=== PATIENT | female | born 1975 | race Caucasian/White ===

== ENCOUNTER → 2020-09-21 10:28 | Outpatient (CLI) | payer BC, SELFPAY ==
--- NOTE | ~2020-09-21 | MM_ITS ---
EXAMINATION: MM screening [facility] BI w shruthi HISTORY: Screening mammogram TECHNIQUE: Craniocaudal and mediolateral oblique 3-D tomosynthesis images were obtained and synthetic 2-D images were generated. CAD analysis was submitted and interpreted. COMPARISON: 05/10/2019, 05/07/2018, 04/25/2017 BREAST PARENCHYMAL COMPOSITION: The breasts are almost entirely fatty. FINDINGS: There is no evidence of suspicious mass, calcification, or architectural distortion to sugg est malignancy in either breast. There has been no suspicious interval change. IMPRESSION: 1. No mammographic evidence of malignancy. 2. Recommend routine screening mammography in one year. BI-RADS Category 1: Negative Reviewed, dictated and finalized at location A.
== END ==
PROVIDERS: PCP Family Medicine; Visit Provider Obstetrics & Gynecology
DX: Z12.31 Encounter for screening mammogram for malignant neoplasm of breast (principal)
CPT/HCPCS: 77063; 77067

== ENCOUNTER 2025-01-31 02:06 | Day surgery (SDC) | payer BC, SELFPAY ==
[2025-01-22 10:56] VITALS: BMI 43.3
--- NOTE | 2025-01-22 11:09 | PC.NURSE ---
Report to the Outpatient Waiting Room, entrance under the green pavilion located off [facility], at time _1000_ on date _[id number]_. Planned Procedure Time: _1200_.? Time changes happen often and if your time is changed the preop area will call you the afternoon before. - You and your visitor will be asked to self-screen and do not enter if you have any COVID symptoms. Please call surgeon if you need to reschedule. - A mask is optional within the hospital at this time. Patients may have clear liquids (water, carbonated beverages, clear teas, apple juice) until 3 hours prior to surgery with a maximum of 20 ounces. - No food from midnight until time of surgery and no smoking, or chewing tobacco (or any form of nicotine). No chewing gum, candy or mints. Take only the following medications with a SIP of water on the morning of surgery: ___Bupropion, Carvidilol and Azelastine____ DO NOT STOP ANY OF YOUR OTHER PRESCRIPTION MEDICATIONS PRIOR TO SURGERY EXCEPT THE FOLLOWING Hold all vitamins and supplements for 3 days per anesthesiologist. Medications to discontinue per physician ____Aspirin hold 7 days starting [id number]___Hxlfomiy hold now until after surgery.__ Date to take last dose Please no make-up, nail japanese, hairspray, perfume, deodorant, or body powder the day of surgery.? No jewelry (including any body piercings) or valuables the day of surgery, leave them at home.? Please take a shower or bath the night before, or the morning of, surgery with an antibacterial soap.? Wear comfortable, loose fitting clothing.? - Jewelry must be removed prior to entering the operating room.? Rings and piercings that are not removed may be cut off. - The hospital will not accept responsibility for valuables.? - Please leave all valuables, including medications, at home the day of surgery. If you are going home after surgery, a licensed hazardous materials tanker driver must drive you home.? - NO public transportation without another adult if you receive anesthesia. - We recommend that an adult stay with you for 24 hours following discharge. - We also recommend that you do not drive, make important decision, drink alcoholic beverages, or take any drugs that were not prescribed by your health care provider for at least 24 hours after your discharge time. Follow any additional instructions given to you from your surgeon. Telephone instructions given to __Damaris__and asked if any additional questions and then verbalized understanding. Patient advised to call surgeon office or pre surgery nurse liaison [phone] if any additional questions.
--- NOTE | 2025-01-26 18:03 | PM.IMHP ---
H&P: HPI History of Present Illness Date/Time: 01/26/25 18:03 Chief Complaint: mixed incontinence Narrative: desires treatment for ENRIQUE Review of Systems Review of Systems: All systems reviewed & are unremarkable except as noted in HPI and below PMFSH Family History Family History Mother Hypertension Social History Social History Smoking status: Never smoker Alcohol intake: current Living arrangements: with family Spiritual care concerns: No Meds Home Medications and Allergies Home Medications ?Medication ?Instructions ?Recorded ?Confirmed ?Type bupropion HCl 150 mg 24 hr tablet, 150 mg PO DAILY #30 tabs 07/28/20 01/22/25 Rx extended release aspirin 81 mg tablet,delayed 81 mg PO HS 01/22/25 01/22/25 History release (Adult Low Dose Aspirin) azelastine 137 mcg-fluticasone 50 1 spray intranasal DAILY PRN 01/22/25 01/22/25 History mcg/spray nasal spray allergy symptoms biotin 2,500 mcg capsule 2,500 mcg PO DAILY 01/22/25 01/22/25 History carvedilol 25 mg tablet 25 mg PO BID 01/22/25 01/22/25 History cholecalciferol (vitamin D3) 125 125 mcg PO DAILY 01/22/25 01/22/25 History mcg (5,000 unit) tablet (Vitamin D3) inulin 2 gram chewable tablet 2 g PO QPM 01/22/25 01/22/25 History (Fiber Delights) levocetirizine 5 mg tablet (24HR 5 mg PO DAILY 01/22/25 01/22/25 History Allergy Relief) miconazole nitrate 2 % topical 1 applic topical BID PRN itching 01/22/25 01/22/25 History cream multivitamin with minerals-folic 2 tablet PO HS 01/22/25 01/22/25 History acid 200 mcg chewable tablet (Adult Multivitamin Gummies) nystatin 100,000 unit/gram topical 1 applic topical TID PRN itching 01/22/25 01/22/25 History powder (Klayesta) omega 3 350 mg-dha 235 mg-epa 90 1 cap PO DAILY 01/22/25 01/22/25 History mg-fish oil 597 mg capsule,delay rel (Mcdavid-3) oxybutynin chloride 10 mg 10 mg PO DAILY 01/22/25 01/22/25 History tablet,extended release 24 hr ramipril 5 mg capsule 5 mg PO HS 01/22/25 01/22/25 History rosuvastatin 10 mg tablet 10 mg PO HS 01/22/25 01/22/25 History tirzepatide (weight loss) 2.5 2.5 mg subcut WEEKLY 01/22/25 01/22/25 History mg/0.5 mL subcutaneous pen injector (Zepbound) vortioxetine 10 mg tablet 10 mg PO DAILY 01/22/25 01/22/25 History (Trintellix) Allergies Allergy/AdvReac Type Severity Reaction Status Date / Time No Known Allergies Allergy Unverified 01/22/25 10:46 Exam Narrative: + urethral mobility Assessment and Plan Assessment and plan (1) ENRIQUE (stress urinary incontinence, female): Code(s): N39.3 - Stress incontinence (female) (male) Status: Acute Assessment and Plan: urethral sling
--- OUTSIDE RECORDS SUMMARY | 2025-01-31 02:09 | XMS_ITS | Encounter Summary ---
Author Organization [facility] Address [facility] [place] [address] Care Team Providers Care Welcome Wagon Host/Hostess Name Role Phone Margie Newton MD Primary Care Provider [phone] Encounter Details Date Type Department Care Team (Late st Contact Info) Description 04/25/2024 [employer]t Message Enc [facility] Family Medicine [facility] [address] [place] [phone] Margie Newton MD [address] [place] [id number] Compression socks Social History Tobacco Use Types Packs/Day Years Used Date Smoking Tobacco: Never Passive Smoke Exposure: Never Smokeless Tobacco: Never Alcohol Use Standard Drinks/Week Comments No 0 (1 standard drink = 0.6 oz pur e alcohol) AUDIT-C Answer Date Recorded Frequency of Alcohol Consumption Never 12/16/2019 Average Number of Drinks Not on file 020 Frequency of Binge Drinking Not on file 11/28 PHQ-2 Answer Date Recorded Patient Health Questionnaire-2 Score 1 01/29/2024 Comments No Sex and Gender Information Value Date Recorded Sex Assigned at Female 12/13/2024 4:26 PM CARPENTER ROUGH Legal Sex Female 8:27 PM CDT Gender Identity Female 12/15/2021 5:23 AM CARPENTER ROUGH Sexual Orientation Straight 12/15/2021 5: 23 AM CARPENTER ROUGH documented as of this encounter Plan of Treatment Upcoming Encounters Date Type Department Care Team (Late st Contact Info) Description 04/03/2025 12:30 PM CDT Office Visit [facility] [address] [place] [address] Deisi Haji MD [facility] [address] [place] [address] 05/16/2025 3:40 PM CDT Office Visit [facility] Family Medicine [facility] [address] [place] [phone] Margie Newton MD [address] [place] [address] documented as of this encounter Visit Diagnoses Not on filedocumented in this encounter Additional Health Concerns Assessment Noted Time PHQ-9 Depression Total Score: 13 023 8:13 AM CDT documented as of this encounter Care Teams Welcome Wagon Host/Hostess Relationship Specialty Start Date End Date Margie Newton MD [address] [place] [address] PCP - General FAMILY PRACTICE 05/27/22 documented as of this encounter
--- OUTSIDE RECORDS SUMMARY | 2025-01-31 02:09 | XMS_ITS | Referral Summary ---
Author Organization [address] Address [address] [place] [phone] Care Team Providers Care Studio Receptionist Name Role Phone Yael Brothers NP Unavailable Margie Newton MD Primary Care Provider Encounters Date Type Department Care Team Description 01/14/2025 Results Follow-Up [facility] Obstetrical Gynecology [address] [facility] [address] [place] [address] Agata Galvez MD 01/11/2025 9:00 AM AIRPLANE CHARTER CLERK - 01/11/2025 11:59 PM AIRPLANE CHARTER CLERK Hospital Encounter [facility] Breast Imaging [address] [place] [address] Well woman exam Discharge Disposition: Discharge to home or self care from Last 3 Months Allergies No known active allergies Medications multivitamin tablet tablet Take one by mouth one time per day 0 0 11/10/ 9 Active biotin 2,500 mcg capsule Take by mouth daily Active cholecalciferol , vitamin D3, (VITAMIN D3 ORAL) Take 5,000 Units by mouth daily Active aspirin 81 mg enteric coated tablet Take 1 tablet (81 mg total) by mouth daily Active EPINEPHrine 0.3 mg/0.3 mL auto-injection syringeIndicati ons:Anaphylaxis Inject 0.3 mL (0.3 mg total) into the muscle as instructed Active carvediloL (COREG) 25 mg tablet Take 1 tablet (25 mg total) by mouth 2 (two) times a day with meals 60 tablet 11 2 Active sertraline (ZOLOFT) 100 mg tablet Take 1 tablet (100 mg total) by mouth daily 2 Active rosuvastatin (CRESTOR) 10 mg tablet Take 1 tablet (10 mg total) by mouth nightly 2 Active nystatin powder APPY TO FOLDS 3 TIMES A DAY 2 Active levocetirizine (XYZAL) 5 mg tablet 1 Active buPROPion XL (WELLBUTRIN XL) 150 mg 24 hr tablet Take 1 tablet (150 mg total) by mouth every morning 3 Active meclizine (ANTIVERT) 25 mg tablet Take by mouth 3 (three) times a day as needed 3 Active liinn-2-anl-epa -dpa-fish oil 1,050-1,200 mg capsule Active oxyBUTYnin XL (DITROPAN-XL) 10 mg 24 hr tablet Take 1 tablet (10 mg total) by mouth daily 3 Active ramipriL (ALTACE) 5 mg capsule Take by mouth daily 3 Active valACYclovir (VALTREX) 500 mg tablet 3 Active azelastine-flut icasone 137-50 mcg/spray spray,non-aeros ol SPRAY 1 SPRAY INTRANASALLY TWICE A DAY FOR 30 DAYS Active fexofenadine (FRANCINE) 180 mg tablet daily Active ketoconazole (NIZORAL) 2 % cream Apply topically 3 (three) times a day Active Trintellix 10 mg tablet Take 1 tablet (10 mg total) by mouth daily Active vortioxetine (Trintellix) 5 mg tablet daily 4 Active miconazole 2 % cream Apply topically 2 (two) times a day 42.5 g 2 4 Active Active Problems Problem Noted Date Diagnosed Date Cervical radiculopathy 10/27/2023 Hypersomnia 03/21/2023 Assessment & Plan (04/04/2024 11:55 AM CDT): The patient denies falling asleep at inappropriate times. Assessment & Plan (03/21/2023 12:02 PM CDT): The patient denies the want for stimulant therapy due to heart condition. I have ordered a vitamin-D, vitamin B12, and thyroid level. Chronic pansinusitis 02/01/2023 Assessment & Plan (03/16/2023 11:10 AM CDT): She feels like the antibiotic and steroid regimen I prescribed did help. She still has a little bit of stuffiness but it is improved a great deal. I recommended that she continue with her allergy medication including the allergy shots. We talked about using a steroid nasal spray and I felt that it might be helpfull in addition. She really did not want to pursue anything further and therefore I will see her as needed. Assessment & Plan (02/05/2023 6:02 PM CDT): I recommended a another course of antibiotics with a steroid for her sinusitis symptoms. Prescribing Augmentin for 14 days and a Medrol Dosepak. I would like to see her back in about 6 weeks. If she continues with symptoms I may be recommending a sinus CT scan. She understands that. Nasal obstruction 02/01/2023 Assessment & Plan (02/05/2023 6:03 PM CDT): I think her nasal obstruction is probably due to combination of allergies and sinusitis. I recommended that she continue with her current allergy meds including nasal spray. Also recommended she stay with her immunotherapy. 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 Her DME is [employer]. Assessment & Plan (03/21/2023 12:01 PM CDT): Patient continue to wear CPAP in auto titrating range 8-10 cm water pressure while sleeping. Her DME is [employer]. Assessment & Plan (03/02/2022 2:37 PM CDT): The patient will continue with auto titrating CPAP set at 8-10 cm water pressure. Patient denied need for supplies. DME company provider [employer]. Patient is benefitting from CPAP Assessment & Plan (03/08/2021 10:36 AM CDT): Patient continue to wear her CPAP in auto titrating range 8-10 cm of water pressure while sleeping. She is currently getting her supplies online but would like him sent to a [employer] company. Patient states that she has finally found a mask that she likes. She is going to call to [facility] to see if they supply the mask that she currently has. She will call us back to let us know if she would like orders for supplies sent to them. Cardiomyopathy 12/17/2016 Anxiety 07/15/2016 Dyspnea on exertion 07/15/2016 Hemorrhoids 07/15/2016 History of depression 07/15/2016 Migraine 07/15/2016 Pneumonia 07/15/2016 Asthma 07/15/2016 Gastroesophageal reflux disease 07/15/2016 Primary cardiomyopathy 04/12/2014 Overview (03/03/2017): IDIOPATHIC CARDIOMYOPATHY Palpitations 04/12/2014 Overview (03/03/2017): PALPITATIONS Ventricular premature beats 04/12/2014 Overview (03/03/2017): PVCs Premature atrial contraction 04/12/2014 Overview (03/03/2017): ATRIAL PREMATURE BEATS Resolved Problems Problem Noted Date Diagnosed Date Resolved Date Status post hysteroscopic polypectomy 11/12/2020 09/26/2023 Uterine polyp 11/12/2020 09/26/2023 Allergy to cats 12/16/2019 09/26/2023 Immunizations Immunization Administration Dates Next Due Influenza, Quadrivalent, Masha l Culture-based MDCK, Antibiotic Free, Intramuscular 09/20/2020 Influenza, Quadrivalent, Spl it, Preservative Free, Intramuscular 09/23/2022,08/04/2021,07/18/2020,07/24,07/29/2018,08/28/2017,10/23/2016 Influenza, Trivalent, IM (MDV) 08/30/2015 Influenza, Trivalent, Preser vative Free, Intramuscular 08/30/2015 Influenza, Unspecified 09/23/2022,2020,09/20/2020,07/24,07/29/2018,08/28/2017,10/23/2016 ,08/30/2015 Pfizer SARS-CoV-2 Monovalent Vaccination (12+ Yrs) PURPLE 02/08/2021,01/18/2021 Pneumococcal Polysaccharide PPV23 08/28/2017 Social History Tobacco Use Types Packs/Day Years Used Date Smoking Tobacco: Never Smokeless Tobacco: Never Tobacco Cessation:Counseling Given: Not Answered Alcohol Use Standard Drinks/Week Comments No 0 (1 standard drink = 0.6 oz pur e alcohol) Comments No Sex and Gender Information Value Date Recorded Sex Assigned at Not on file Legal Sex Female 12:52 AM AIRPLANE CHARTER CLERK Gender Identity Not on file Sexual Orientation Straight 12/10/2020 1: 02 PM AIRPLANE CHARTER CLERK Last Filed Vital Signs Vital Sign Reading Time Taken Comments Blood Pressure 120/82 09/27/2024 9:07 AM CDT Pulse 63 04/04/2024 11:37 AM CDT Temperature 36.7 C (98 F) 04/04/2024 11:37 AM CDT Respiratory Rate 18 04/04/2024 11:37 AM CDT Oxygen Saturation 94% 04/04/2024 11:37 AM CDT Inhaled Oxygen Concentration - - Weight 114.3 kg (252 lb) 01/11/2025 9:19 AM AIRPLANE CHARTER CLERK Height 162.6 cm (5' 4 ) 01/11/2025 9:19 AM AIRPLANE CHARTER CLERK Body Mass Index 43.26 01/11/2025 9:19 AM AIRPLANE CHARTER CLERK Plan of Treatment Not on file Procedures Procedure Name Priority Date/Time Associated Diagnosis Comments SCREENING MAMMOGRAM BILATERAL W JEAN-CLAUDE Schedule Routine, Read Routine (OP Routine) 01/11/2025 9:26 AM AIRPLANE CHARTER CLERK Well woman exam HIGH RISK HPV DNA DETECTION WITH GENOTYPING Routine 09/26/2023 2:26 PM CDT Well woman exam from Last 3 Months or Most Recently Relevant to Health Maintenance Results * Screening Mammogram Bilateral W Jean-Claude (01/11/2025 9:26 AM AIRPLANE CHARTER CLERK) Anatomical Region Laterality Modality Breast Bilateral Mammography Impressions 01/13/2025 8:41 AM AIRPLANE CHARTER CLERK BI-RADS ATLAS category (overall): 1 - Negative There is no mammographic evidence of malignancy. A 1 year screening mammogram is recommended. The patient has been or will be contacted. We recommend annual screening mammography for women at average risk of breast cancer beginning at age 40, based on guidelines of the [employer] (ACR Practice Parameter for the Performance of Screening and Diagnostic Mammography) and [employer]. For women with and elevated risk of breast cancer, please refer to the ACR Practice Parameter for specific screening recommendations. The patient will be entered into a reminder system with a target due date of 1 year for her next screening exam. Narrative 01/13/2025 8:41 AM AIRPLANE CHARTER CLERK Screening Mammogram Bilateral W Jean-Claude: 01/11/25 The study was acquired using full field digital technology and interpreted from soft copy. 2D digital mammographic views, as well as 3D digital tomosynthesis were performed in the CC and MLO projections. This study was resulted using Computer-Aided Detection (CAD). CLINICAL: Well woman exam. No relevant medical history has been documented for this patient. History of breast cancer in Neg Hx. COMPARISONS: 12/16/2023 Screening Mammogram Bilateral W Jean-Claude 11/23/2022 SCREENING MAMMOGRAM BILATERAL W JEAN-CLAUDE 09/21/2020 Breast Imaging Screening Outside Reference 05/10/2019 Breast Imaging Screening Outside Reference 05/07/2018 Breast Imaging Screening Outside Reference BREAST TISSUE: The breasts are almost entirely fatty. FINDINGS: No suspicious masses, suspicious calcifications, or other suspicious findings are seen within either breast. There has been no suspicious change. Agata Galvez MD IMG MAMMO PROCEDURES Final Result * High Risk HPV DNA Detection with Genotyping (Molecular component) (09/26/2023 2:26 PM CDT) HPV HR 16 Not Detected Not Detected NISHANT OAKLEY Comment:Testing performed by : [facility], [address] [place]., [address] HPV HR 18 Not Detected Not Detected NISHANT OAKLEY Comment:Testing performed by : [facility], [address] [place]., [address] HPV HR Non 16/18 Not Detected Not Detected NISHANT OAKLEY Comment: Interpretive Data Nucleic acid amplification for detection of high-risk Human Papilloma virus (HPV) is performed by the Krea Rick 6800 HPV test. This assay specifically detects HPV-16 and HPV-18 genotypes. The following HPV genotypes are detected as high-risk HPV: HPV-31, 33, 35, ,39, 45, 51, 52, 56, 58, 59, 66, and 68. This assay has been approved by the [place] Food and Drug Administration for detection of HPV in cervical specimens collected by a physician using an endocervical brush/spatula or cervical broom and placed in the ThinPrep Pap Test PreservCyt collection containers. The performance characteristics of this test have been verified by the [facility] Molecular Infectious Disease laboratory. Correlate with separately reported cytology results, as applicable. Interpretive data last revised 23 Testing performed by: [facility], [address] [place]., [address] Endocervical 09/26/2023 2:26 PM CDT 09/29/2023 2:59 PM CDT Narrative NISHANT OAKLEY - 09/30/2023 2:22 AM CDT Clinical history and diagnosis->routine Number of vials->1 Testing type->Screening Last menstrual period (date if known)->08/03/2023 Agata Galvez MD LAB BODY FLUIDS AND STOOLS ORDERABLES Final Result NISHANT OAKLEY [address] [facility] Department [place] [address] from Last 3 Months or Most Recently Relevant to Health Maintenance Insurance [employer] [place] [employer] [place] [employer] [place] Care Teams Studio Receptionist Relationship Specialty Start Date End Date Margie Newton MD [address] [place] [place] [address] PCP - General Family Practice 11/23/22 Yael Brothers NP Obstetrics and Gynecology 11/23/22
--- OUTSIDE RECORDS SUMMARY | 2025-01-31 02:09 | XMS_ITS | Encounter Summary ---
Author Organization [facility] Address [facility] [place] [address] Care Team Providers Care Float Operator Name Role Phone Saad Soria MD Primary Care Provider [phone] Margie Newton MD Primary Care Provider Encounter Details Date Type Department Care Team (Late st Contact Info) Description 12/26/2019 MyChart Message Enc [facility] Family Medicine [facility] [address] [place] [phone] Saad Soria MD [address] [address] RE: Other Social History Tobacco Use Types Packs/Day Years Used Date Smoking Tobacco: Never Smokeless Tobacco: Never Alcohol Use Standard Drinks/Week Comments No 0 (1 standard drink = 0.6 oz pur e alcohol) AUDIT-C Answer Date Recorded Frequency of Alcohol Consumption Never 12/16/2019 Average Number of Drinks Not on file 020 Frequency of Binge Drinking Not on file 11/28 Comments No Sex and Gender Information Value Date Recorded Sex Assigned at Female 12/13/2024 4:26 PM SANITATION OFFICER Legal Sex Female 8:27 PM CDT Gender Identity Female 12/15/2021 5:23 AM SANITATION OFFICER Sexual Orientation Straight 12/15/2021 5: 23 AM SANITATION OFFICER documented as of this encounter Plan of Treatment Upcoming Encounters Date Type Department Care Team (Late st Contact Info) Description 04/03/2025 12:30 PM CDT Office Visit [facility] [address] [place] [address] Deisi Haji MD [facility] [address] [place] [address] 05/16/2025 3:40 PM CDT Office Visit [facility] Family Medicine [facility] [address] [place] [phone] Margie Newton MD [address] [place] [address] documented as of this encounter Visit Diagnoses Not on filedocumented in this encounter Care Teams Float Operator Relationship Specialty Start Date End Date Saad Soria MD PCP - General FAMILY PRACTICE 12/03/19 05/26/22 Margie Newton MD [facility] [place] [address] PCP - General FAMILY PRACTICE 05/27/22 documented as of this encounter
--- OUTSIDE RECORDS SUMMARY | 2025-01-31 02:09 | XMS_ITS | Clinical Summary ---
Author Organization [address] Address [address] [place] [id number] Care Team Providers Care Web Merchandiser Name Role Phone Yael Brothers NP Unavailable Margie Newton MD Primary Care Provider Allergies No known active allergies Medications multivitamin tablet tablet Take one by mouth one time per day 0 0 9 Active biotin 2,500 mcg capsule Take [...] times a day as needed 3 Active lixnh-3-yef-epa -dpa-fish oil 1,050-1,200 mg capsule Active oxyBUTYnin [...] but would like him sent to a [facility]. Patient states that she has finally found a mask that she likes. She is going to call to [facility] to see if they supply the mask [...] 11/12/2020 09/26/2023 Allergy to cats 12/16/2019 09/26/2023 Encounters Date Type Department Care Team Description 01/14/2025 Results Follow-Up [facility] Obstetrical Gynecology [address] [place] [address] Agata Galvez MD 01/11/2025 9:00 AM SPEEDBOAT OPERATOR - 01/11/2025 11:59 PM SPEEDBOAT OPERATOR Hospital Encounter [facility] [address] [place] [address] Well woman exam Discharge Disposition: Discharge to home or self care from Last 3 Months Immunizations Immunization Administration Dates Next Due Influenza, Quadrivalent, Masha l Culture-based MDCK, Antibiotic Free, Intramuscular 09/20/2020 Influenza, Quadrivalent, Spl it, Preservative Free, Intramuscular 09/23/2022,08/04/2021,07/18/2020,07/24,07/29/2018,08/28/2017,10/23/2016 Influenza, Trivalent, IM (MDV) 08/30/2015 Influenza, Trivalent, Preser vative Free, Intramuscular 08/30/2015 Influenza, Unspecified 09/23/2022,2020,09/20/2020,07/24,07/29/2018,08/28/2017,10/23/2016 ,08/30/2015 Pfizer SARS-CoV-2 Monovalent Vaccination (12+ Yrs) PURPLE 02/08/2021,01/18/2021 Pneumococcal Polysaccharide PPV23 08/28/2017 Surgical History Surgery Date Site/Laterality Comments OTHER SURGICAL HISTORY 1977 VSD repair TONSILLECTOMY tonsillectomy LASIK Lasik INTERRUPTED AORTIC ARCH REPA IR, CLOSURE VENTRICULAR SEPTAL DEFECT Ventricular Septal Defect Repair - (Added by TW Conv) SINUS SURGERY Sinus Surgery - (Added by TW Conv) LASIK Corneal LASIK - (Added by TW Conv) DC TONSILLECTOMY PRIMARY/SEC ONDARY <AGE 12 Tonsillectomy - (Added by TW Conv) BARIATRIC SURGERY gastric sleeve HYSTEROSCOPY W/ POLYPECTOMY Medical History Medical History Date Comments Hx Other Medical 2008 mildly elevated cholesterol Hx Other Medical hairline fractu re of little finger Hx Other Medical poss ankle frac ture Hyperlipidemia hyperlipidemia Hx Other Medical palpitations occ PAC & PVC Hx Other Medical anxiety/depress ion Pneumonia 1976 pneumonia Pneumonia 1991 pneumonia Allergic rhinitis Anxiety Cardiomyopathy (HCC) Depression Loss of smell Migraine Heart disease Cardiomyopathy Sleep apnea Kidney stone Jul 2021 PMB (postmenopausal bleeding) Family History Medical History Relation Name Comments Cancer Father Omkar Family history of malignant neoplasm - (Added by TW Conv) Heart attack Maternal Grandfather Chemo Myocard ial Infarction; Heart attack Maternal Grandmother Keila Myocard ial Infarction; Asthma Mother Marlyne Family history of asthma - (Added by TW Conv) Depression Mother Marlyne Family history of depression - (Added by TW Conv) Diabetes Mother Marlyne Family history of diabetes mellitus - (Added by TW Conv) Hyperlipidemia Mother Marlyne Family histor y of hyperlipidemia - (Added by TW Conv) Hypertension Mother Marlyne Family history of hypertension - (Added by TW Conv) Obesity Mother Marlyne Family history of obesity - (Added by TW Conv) Sleep apnea Mother Marlyne Family history of sleep apnea - (Added by TW Conv) Hypertension Other 2 Hypertension; u nspecified family members with HTN Breast cancer Neg Hx Colon cancer Neg Hx Ovarian cancer Neg Hx Uterine cancer Neg Hx Relation Name Status Comments Father Omkar Alive Maternal Grandfather Chemo Alive Maternal Grandmother Keila Alive Mother Tyler Alive Other 1 Alive Other 2 Social History Tobacco Use Types Packs/Day Years Used Date Smoking Tobacco: Never Smokeless Tobacco: Never Tobacco Cessation:Counseling Given: Not Answered Alcohol Use Standard Drinks/Week Comments No 0 (1 standard drink = 0.6 oz pur e alcohol) Comments No Sex and Gender Information Value Date Recorded Sex Assigned at Not on file Legal Sex Female 12:52 AM SPEEDBOAT OPERATOR Gender Identity Not on file Sexual Orientation Straight 12/10/2020 1: 02 PM SPEEDBOAT OPERATOR Obstetrics History Para Term AB IAB SAB Ectopic Multiple Livin g Live Births 0 0 0 0 0 0 0 0 0 0 0 Comments Menarche:14 Last Filed Vital Signs Vital Sign Reading Time Taken Comments Blood Pressure 120/82 09/27/2024 9:07 AM CDT Pulse 63 04/04/2024 11:37 AM CDT Temperature 36.7 C (98 F) 04/04/2024 11:37 AM CDT Respiratory Rate 18 04/04/2024 11:37 AM CDT Oxygen Saturation 94% 04/04/2024 11:37 AM CDT Inhaled Oxygen Concentration - - Weight 114.3 kg (252 lb) 01/11/2025 9:19 AM SPEEDBOAT OPERATOR Height 162.6 cm (5' 4 ) 01/11/2025 9:19 AM SPEEDBOAT OPERATOR Body Mass Index 43.26 01/11/2025 9:19 AM SPEEDBOAT OPERATOR Plan of Treatment Health Maintenance Due Date Last Done Comments Colon Cancer Screening-Colonoscopy 1975 Depression Screening 1975 Hepatitis C Screening 1975 Hepatitis B Screening 02/12/1994 Pneumococcal vaccine <65 (2 of 2 - PCV) 08/28/2018 08/28/2017 Covid-19 Vaccine (6 2023-2 5 season) 2024 09/18/2023, 09/23/2022, 08/31/2021, Additional history exists Cervical Cancer Screening 09/26/20242022, 09/26/2023, 08/17/2022 Regular Well Visit/Exam 18-64 09/27/2025, 09/26/2023, 08/17/2022 Breast Cancer Screening-Mammogram 01/11/2026 01/11/2025, 12/16/2023, 11/23/2022 DTaP/Tdap/Td Vaccine (2 - Td or Tdap) 10/11/2034 10/11/2024 Influenza Vaccine Completed 09/03/2024, , 09/23/2022, Additional history exists Procedures Procedure Name Priority Date/Time Associated Diagnosis Comments SCREENING MAMMOGRAM BILATERAL W JEAN-CLAUDE Schedule Routine, Read Routine (OP Routine) 01/11/2025 9:26 AM SPEEDBOAT OPERATOR Well woman exam HIGH RISK HPV DNA DETECTION WITH GENOTYPING Routine 09/26/2023 2:26 PM CDT Well woman exam from Last 3 Months or Most Recently Relevant to Health Maintenance Results * Screening Mammogram Bilateral W Jean-Claude (01/11/2025 9:26 AM SPEEDBOAT OPERATOR) Anatomical Region Laterality Modality Breast Bilateral Mammography Impressions 01/13/2025 8:41 AM SPEEDBOAT OPERATOR BI-RADS ATLAS category (overall): 1 - Negative There is no mammographic evidence of malignancy. A 1 year screening mammogram is recommended. The patient has been or will be contacted. We recommend annual screening mammography for women at average risk of breast cancer beginning at age 40, based on guidelines of the [employer] (ACR Practice Parameter for the Performance of Screening and Diagnostic Mammography) and [employer]. For women with and elevated risk of breast cancer, please refer to the ACR Practice Parameter for specific screening recommendations. The patient will be entered into a reminder system with a target due date of 1 year for her next screening exam. Narrative 01/13/2025 8:41 AM SPEEDBOAT OPERATOR Screening Mammogram Bilateral W Jean-Claude: 01/11/25 The [...] breast. There has been no suspicious change. us Agata Galvez MD IMG MAMMO PROCEDURES Final Result * High Risk HPV DNA Detection with Genotyping (Molecular component) (09/26/2023 2:26 PM CDT) HPV HR 16 Not Detected Not Detected NISHANT Comment:Testing performed by : [facility], [address] [place]., [address] HPV HR 18 Not Detected Not Detected NISHANT Comment:Testing performed by : [facility], [address] [place]., [address] HPV HR Non 16/18 Not Detected Not Detected NISHANT Comment: Interpretive Data Nucleic acid amplification for detection of high-risk Human Papilloma virus (HPV) is performed by the Kera Rick 6800 HPV test. This assay specifically [...] this test have been verified by the [facility] Molecular Infectious Disease laboratory. Correlate with separately reported cytology results, as applicable. Interpretive data last revised 23 Testing performed by: [facility] [address] [facility], [place]., [address] Endocervical 09/26/2023 2:26 PM CDT 09/29/2023 2:59 PM CDT James OAKLEY - 09/30/2023 2:22 AM CDT Clinical history and diagnosis->routine Number of vials->1 Testing type->Screening Last menstrual period (date if known)->08/03/2023 Agata Galvez MD LAB BODY FLUIDS AND STOOLS ORDERABLES Final Result NISHANT [address] [facility] Department [place] [address] from Last 3 Months or Most Recently Relevant to Health Maintenance Insurance Real Intent DE Real Intent DE [facility] Care Teams Web Merchandiser Relationship Specialty Start Date End Date Margie Newton MD [address] [facility] [place] [address] PCP - General Family Practice 11/23/22 Yael Brothers NP Obstetrics and Gynecology 11/23/22
--- OUTSIDE RECORDS SUMMARY | 2025-01-31 02:09 | XMS_ITS ---
Author Organization [facility] Address [address] [place] [address] Care Team Providers Care Plant Controller Name Role Phone Margie Newton Primary Care Provider Rosanna Johnson Unavailable [phone] Saad Soria Unavailable Unavailable REASON FOR VISIT SCIT - Traditional Schedule Allergy immunotherapy Medications Medication SIG (Take, Route, Frequency, Duration) Notes Start Date End Date Status SIT (TRADITIONAL) variable per schedule SC per schedule for to be determined Active Azelastine-Fluticaso ne 137 MCG-50 MCG/INH 1 SPRAY(S) INTRANASALLY 2 TIMES A DAY for 30 DAYS *Please review and pick correct strength-formula tion from Met[employer]x options. If intended option is not shown, discontinue and re-order from Quick Search* 04/25/2024 Active Famotidine 40 MG 1 tab(s) orally once a day (at bedtime) Not-Taking Levocetirizine Dihydrochloride 5 MG 1 tab(s) orally once a day (in the evening) for 30 day(s) Not-Taking Fexofenadine HCl 180 MG 1 tab(s) orally once a day Not-Taking Vitamin C 500 MG 1 tab(s) chewed once a day for 30 day(s) Not-Taking Xyzal Allergy 24HR *Please revie w and pick correct strength-formula tion from [employer] options. If intended option is not shown, discontinue and re-order from Quick Search* Not-Taking Azelastine HCl 0.15 % 2 spray(s) intranasally 2 times a day for 30 day(s) 06/08/2022 Not-Taking Quinapril HCl 10 MG 1 tab(s) orally once a day for 30 day(s) Not-Taking Rosuvastatin Calcium 10 MG 1 tab(s) orally once a day for 30 day(s) Not-Taking Trintellix 5 MG 1 tab(s) orally once a day for 30 day(s) 04/25/2024 Active Auvi-Q 0.3 MG/0.3ML as directed intramuscularly once for 30 day(s) Active Xyzal Allergy 24HR 5 MG 1 tablet PO daily for 30 01/05/2022 Not-Taking Carvedilol 6.25 MG 1 tab(s) orally 2 times a day for 30 day(s) Active Sertraline HCl 50 MG 1 tab(s) orally onc e a day for 30 day(s) Active buPROPion HCl ER (XL) 150 MG 1 tab(s) orally every 24 hours for 30 day(s) Active Coenzyme Q10 300 MG 1 cap(s) orally once a day Active Fish Oil 1000 MG 1 cap(s) orally once a day for 30 day(s) Active valACYclovir HCl 1 GM 1 tab(s) orally 2 times a day for 5 day(s) Active Vitamin D3 125 MCG (5000 UT) as directed orally once a day for 30 day(s) Active Flonase Allergy Relief 50 MCG/ACT 1 spray(s) in each nostril once a day Active Rosuvastatin Calcium 10 MG 1 tab(s) orally once a day Active Aspirin 81 MG 1 tab(s) chewed once a day for 30 day(s) Active Calcium 500+D 500 MG-400 INTL UNITS 1 TAB(S) CHEWED 2 TIMES A DAY for 30 DAY(S) *Please review and pick correct strength-formula tion from Medispan options. If intended option is not shown, discontinue and re-order from Quick Search* Active Ramipril 5 MG 1 cap(s) orally once a day Active Nystatin 304874 UNIT/GM 1 ibeth applied topically 3 times a day Active Xyzal Allergy 24HR 5 MG 1 tablet PO daily for 30 Active Encounters Encounter Location Date Provider Diagnosis MICHELL Johnson [address] [place] [address] 06/05/2024 Rosanna Burnette Allergic rhinitis du e to pollen J30.1 ; Allergic rhinitis due to animal (cat) (dog) hair and dander J30.81 ; Other allergic rhinitis J30.89 and Other chronic allergic conjunctivitis H10.45 Assessments Encounter Date Diagnosis (ICD Code) Assessment Notes Treatment Notes Treatment Clinical Notes Section Notes 06/05/2024 Allergic rhinitis due to pollen (ICD-10 - J30.1) 06/05/2024 Allergic rhinitis due to animal (cat) (dog) hair and dander (ICD-10 - J30.81) 06/05/2024 Other allergic rhinitis (ICD-10 - J30.89) 06/05/2024 Other chronic allergic conjunctivitis (ICD-10 - H10.45) Plan Of Treatment Medication Medication Name Sig Start Date Stop Date Notes SIT (TRADITIONAL) variable per schedule SC per schedule for to be determined Next Appt Details Follow Up: 1 Week, Reason: Progress Notes * Damaris JACKSONDOB:1975 (49 yo F)Acc No.[id number]:06/05/2024 Aeroallergen SCIT Patient: Hayes RafiJoe CUMMINGSica Provider: Gilberto Burnette MD :1975 A ge:49 Y S ex:Female Date:06/05/2024 Address:[address] [place], [place] [id number] Pcp:Saad Soria Subjective: * Chief Complaints: * S CIT - Traditional Schedule Allergy immunotherapy * HPI: * Introduction: The patient is here for scheduled immunotherapy. Please see the attached specialty form regarding the specifics of the administration of these vaccines. As per our protocol, they must undergo a screening health questionnaire (medication changes, reaction(s) to last immunotherapy dose(s), current health status, ACT (if appropriate), self-injectable epinephrine on patient(?) and peak flow (if appropriate)). Also, the patient must wait in our office for 30 minutes after receiving the vaccine(s). Furthermore, every patient must have an epinephrine pen (self-injectable) with them at the time of administration--and carry if for the following 1.5 hours after they leave our office. The patient must also have taken their antihistamine the day of the injection, preferably 2 hours prior. The consent form for SCIT (subcutaneous immunotherapy) is on file. * Medical History: * Surgical History: * Hospitalization/Major Diagno stic Procedure: * Medications: T akingXyzal Allergy 24HR 5 MG Tablet 1 tablet PO daily SIT (TRADITIONAL) VARIABLE SEE RECORD PER SCHEDULE SC PER SCHEDULE , Notes to Pharmacist: *Please review for potential replacement for e-prescription and drug interaction check*Nystatin 896949 UNIT/GM Powder 1 ibeth applied topically 3 times a day Ramipril 5 MG Capsule 1 cap(s) orally once a day Rosuvastatin Calcium 10 MG Tablet 1 tab(s) orally once a day Flonase Allergy Relief 50 MCG/ACT Suspension 1 spray(s) in each nostril once a day Calcium 500+D 500 MG-400 INTL UNITS TABLET, CHEWABLE 1 TAB(S) CHEWED 2 TIMES A DAY , Notes to Pharmacist: *Please review and pick correct strength-formulation from Metconnex options. If intended option is not shown, discontinue and re-order from Quick Search*Aspirin 81 MG Tablet Chewable 1 tab(s) chewed once a day Fish Oil 1000 MG Capsule 1 cap(s) orally once a day Coenzyme Q10 300 MG Capsule 1 cap(s) orally once a day Vitamin D3 125 MCG (5000 UT) Capsule as directed orally once a day valACYclovir HCl 1 GM Tablet 1 tab(s) orally 2 times a day buPROPion HCl ER (XL) 150 MG Tablet Extended Release 24 Hour 1 tab(s) orally every 24 hours Sertraline HCl 50 MG Tablet 1 tab(s) orally once a day Carvedilol 6.25 MG Tablet 1 tab(s) orally 2 times a day Auvi-Q 0.3 MG/0.3ML Solution Auto-injector as directed intramuscularly once Trintellix 5 MG Tablet 1 tab(s) orally once a day Azelastine-Fluticasone 137 MCG-50 MCG/INH SPRAY 1 SPRAY(S) INTRANASALLY 2 TIMES A DAY , Notes to Pharmacist: *Please review and pick correct strength-formulation from Metconnex options. If intended option is not shown, discontinue and re-order from Quick Search*Taking Xyzal Allergy 24HR 5 MG Tablet 1 tablet PO daily Taking SIT (TRADITIONAL) VARIABLE SEE RECORD PER SCHEDULE SC PER SCHEDULE , Notes to Pharmacist: *Please review for potential replacement for e-prescription and drug interaction check*Taking Nystatin 411591 UNIT/GM Powder 1 ibeth applied topically 3 times a day Taking Ramipril 5 MG Capsule 1 cap(s) orally once a day Taking Rosuvastatin Calcium 10 MG Tablet 1 tab(s) orally once a day Taking Flonase Allergy Relief 50 MCG/ACT Suspension 1 spray(s) in each nostril once a day Taking Calcium 500+D 500 MG-400 INTL UNITS TABLET, CHEWABLE 1 TAB(S) CHEWED 2 TIMES A DAY , Notes to Pharmacist: *Please review and pick correct strength-formulation from [employer] options. If intended option is not shown, discontinue and re-order from Quick Search*Taking Aspirin 81 MG Tablet Chewable 1 tab(s) chewed once a day Taking Fish Oil 1000 MG Capsule 1 cap(s) orally once a day Taking Coenzyme Q10 300 MG Capsule 1 cap(s) orally once a day Taking Vitamin D3 125 MCG (5000 UT) Capsule as directed orally once a day Taking valACYclovir HCl 1 GM Tablet 1 tab(s) orally 2 times a day Taking buPROPion HCl ER (XL) 150 MG Tablet Extended Release 24 Hour 1 tab(s) orally every 24 hours Taking Sertraline HCl 50 MG Tablet 1 tab(s) orally once a day Taking Carvedilol 6.25 MG Tablet 1 tab(s) orally 2 times a day Taking Auvi-Q 0.3 MG/0.3ML Solution Auto-injector as directed intramuscularly once Taking Trintellix 5 MG Tablet 1 tab(s) orally once a day Taking Azelastine-Fluticasone 137 MCG-50 MCG/INH SPRAY 1 SPRAY(S) INTRANASALLY 2 TIMES A DAY , Notes to Pharmacist: *Please review and pick correct strength-formulation from [employer]x options. If intended option is not shown, discontinue and re-order from Quick Search*Not-Taking/PRNXyzal Allergy 24HR 5 MG Tablet 1 tablet PO daily Vitamin C 500 MG Tablet Chewable 1 tab(s) chewed once a day Azelastine HCl 0.15 % Solution 2 spray(s) intranasally 2 times a day Xyzal Allergy 24HR , Notes to Pharmacist: *Please review and pick correct strength-formulation from [employer] options. If intended option is not shown, discontinue and re-order from Quick Search*Rosuvastatin Calcium 10 MG Tablet 1 tab(s) orally once a day Quinapril HCl 10 MG Tablet 1 tab(s) orally once a day Famotidine 40 MG Tablet 1 tab(s) orally once a day (at bedtime) Fexofenadine HCl 180 MG Tablet 1 tab(s) orally once a day Levocetirizine Dihydrochloride 5 MG Tablet 1 tab(s) orally once a day (in the evening) Not-Taking/PRN Xyzal Allergy 24HR 5 MG Tablet 1 tablet PO daily Not-Taking/PRN Vitamin C 500 MG Tablet Chewable 1 tab(s) chewed once a day Not-Taking/PRN Azelastine HCl 0.15 % Solution 2 spray(s) intranasally 2 times a day Not-Taking/PRN Xyzal Allergy 24HR , Notes to Pharmacist: *Please review and pick correct strength-formulation from MEPS [employer]pan options. If intended option is not shown, discontinue and re-order from Quick Search*Not-Taking/PRN Rosuvastatin Calcium 10 MG Tablet 1 tab(s) orally once a day Not-Taking/PRN Quinapril HCl 10 MG Tablet 1 tab(s) orally once a day Not-Taking/PRN Famotidine 40 MG Tablet 1 tab(s) orally once a day (at bedtime) Not-Taking/PRN Fexofenadine HCl 180 MG Tablet 1 tab(s) orally once a day Not-Taking/PRN Levocetirizine Dihydrochloride 5 MG Tablet 1 tab(s) orally once a day (in the evening) Objective: * Vitals: Assessment: * Assessment: 1. A llergic rhinitis due to pollen - J30.1 (Primary) 2 . A llergic rhinitis due to animal (cat) (dog) hair and dander - J30.81 3 . O ther allergic rhinitis - J30.89 4 . O ther chronic allergic conjunctivitis - H10.45 Plan: * Treatment: * Procedure Codes: 9 5117 IMMUNOTHERAPY INJECTIONS * Preventive Medicine: Counseling: E xercise A void heavy lifting on days of allergy immunotherapy. M edication instruction: I njectable epinephrine education and instruction w/ discussion of signs and symptoms of anaphylaxis and reasons to seek urgent or emergent care, Watch for side effects of prescribed medications. E ducation: A ble to return demonstration of self-injectable epinephrine. * Follow Up: 1 Week * Billing Information: * Visit Code: * Procedure Codes: 70900 IMMUNOTHERAPY INJECTIONS. * Sign off status: Completed true * Provider: Gilberto Burnette MD Date: 0 06/05/2024 Generated for Sarbjit saucedo/Chivo/Malissa on: 0 01/31/2025 02:09 AM PRISON OFFICER History and Physical Notes * HPI (History of Present Illness) Category Sub-Category Detail Notes Category Not es *Introduction The patient is here for scheduled immunotherapy. Please see the attached specialty form regarding the specifics of the administration of these vaccines. As per our protocol, they must undergo a screening health questionnaire (medication changes, reaction(s) to last immunotherapy dose(s), current health status, ACT (if appropriate), self-injectable epinephrine on patient(?) and peak flow (if appropriate)). Also, the patient must wait in our office for 30 minutes after receiving the vaccine(s). Furthermore, every patient must have an epinephrine pen (self-injectable) with them at the time of administration--and carry if for the following 1.5 hours after they leave our office. The patient must also have taken their antihistamine the day of the injection, preferably 2 hours prior. The consent form for SCIT (subcutaneous immunotherapy) is on file.
--- OUTSIDE RECORDS SUMMARY | 2025-01-31 02:09 | XMS_ITS | Patient Health Summary ---
Author Organization [facility] Address [address] [facility] [place] [address] Care Team Providers Care Supervisor Wrapping Room Name Role Phone Margie Newton MD Primary Care Provider [phone] Note from [facility],non-owned Affiliates and Associated Physician Practices is amultiple site organization consisting of ambulatory clinics and hospital sitesin [place], [place], [place] and [place]. This disclosure is being madepursuant to the Care Everywhere program and may not contain all information available regarding this patient. Last updated 18.[facility] Social History Tobacco Use Types Packs/Day Years Used Date Smoking Tobacco: Never Assessed Sex and Gender Information Value Date Recorded Sex Assigned at Female 09/14/2021 7:00 PM CDT Gender Identity Female 09/14/2021 7:00 PM CDT Sexual Orientation Straight 09/14/2021 7: 00 PM CDT Procedures * DERMATOPATHOLOGY(Performed 11/30/2020) Results * DERMATOPATHOLOGY (11/30/2020 12:00 AM ORTHOTIC/PROSTHETIC PRACTITIONER) Case Report Dermatopathology Report Case: [id number] Authorizing Provider: Melodie Thomas MD Collected: 11/30/2020 12:00 AM Ordering Location: [facility] DermPath Lab Received: 12/01/2020 06:34 AM Pathologist: Lily Vega MD Specimen: Skin, left upper back 6:18 PM [facility] DERMATOPATHOLOGY LABORATORY Final Diagnosis Specimen A. SKIN, left upper back: EPIDERMOID CYST (L72.0) 6:18 PM [facility] DERMATOPATHOLOGY LABORATORY Clinical History R/O BCC, cyst, irritated. 1 6:18 PM [facility] DERMATOPATHOLOGY LABORATORY Gross Description Specimen A: Received is one formalin filled container labeled with the patient's name and designated left upper back. The specimen consists of a shave (4 pieces) measuring [id number], [id number], [id number], & [id number]. Jar 0+. 1 6:18 PM [facility] DERMATOPATHOLOGY LABORATORY Microscopic Description Specimen A. SKIN, left upper back: Within the dermis, there is a space lined by epithelium that resembles normal epidermis and the infundibular portion of the hair follicle. 1 6:18 PM [facility] DERMATOPATHOLOGY LABORATORY Disclaimer An external and internal positive and negative controls are appropriate for the histochemical, immunohistochemical and immunofluorescence stain(s) in this case (if any), except where stated explicitly. The performance characteristics of the stain(s) cited in this report were developed and its performance characteristic determined by the Dermatopathology Laboratory at [facility], directed by Dr. Aidee Anaya. These tests need not be, and therefore are not, approved by the [place] Food and Drug Administration. The tests are used for clinical purposes. Billing Codes Specimen Charges Stain Charges 12348 1 1 6:18 PM [facility] DERMATOPATHOLOGY LABORATORY Embedded Images 1 6:18 PM [facility] DERMATOPATHOLOGY LABORATORY Pathology/Cytolog y TISSUE SPECIMEN FROM SKIN / Unknown 11/30/2020 12/01/2020 6:34 AM ORTHOTIC/PROSTHETIC PRACTITIONER Melodie Thomas MD LAB - PATHOLOGY/CYT OLOGY ORDERABLES DERMATOPATHOLOGY LABORATORY [facility] - Department of Dermatology [facility] Medicine [address] [place] [address], [address] [phone] Care Teams Supervisor Wrapping Room Relationship Specialty Start Date End Date Margie Newton MD [address] [place] [address] PCP - General Family Medicine 11/23/23
--- OUTSIDE RECORDS SUMMARY | 2025-01-31 02:09 | XMS_ITS | Encounter Summary ---
Author Organization [facility] Address [address] [place] [address] Care Team Providers Care Investigator Internal Affairs Name Role Phone Margie Newton MD Primary Care Provider [phone] Encounter Details Date Type Department Care Team (Late st Contact Info) Description 12/01/2020 Lab Requisition [facility] DermPath Lab [address] [facility] [place] [address] Melodie Thomas MD [address] [facility] [address] [place] [address] Social History Tobacco Use Types Packs/Day Years Used Date Smoking Tobacco: Never Assessed Sex and Gender Information Value Date Recorded Sex Assigned at Female 09/14/2021 7:00 PM CDT Gender Identity Female 09/14/2021 7:00 PM CDT Sexual Orientation Straight 09/14/2021 7: 00 PM CDT documented as of this encounter Plan of Treatment Not on file documented as of this encounter Procedures Procedure Name Priority Date/Time Associated Diagnosis Comments DERMATOPATHOLOGY Routine 11/30/2020 12:0 0 AM PAD EXTRACTION TENDER documented in this encounter Results * DERMATOPATHOLOGY (11/30/2020 12:00 AM PAD EXTRACTION TENDER) Case Report Dermatopathology Report Case: [id number] Authorizing Provider: Melodie Thomas MD Collected: 11/30/2020 12:00 AM Ordering Location: [facility] DermPath Lab Received: 12/01/2020 06:34 AM Pathologist: Lily Vega MD Specimen: Skin, left upper back 6:18 PM PAD EXTRACTION TENDER DERMATOPATHOLOGY LABORATORY Final Diagnosis Specimen A. SKIN, left upper back: EPIDERMOID CYST (L72.0) 1 6:18 PM [facility] DERMATOPATHOLOGY LABORATORY Clinical History R/O BCC, cyst, irritated. 1 6:18 PM [facility] DERMATOPATHOLOGY LABORATORY Gross Description Specimen A: Received is one formalin filled container labeled with the patient's name and designated left upper back. The specimen consists of a shave (4 pieces) measuring [id number], [id number], 7o5f3bw, & [id number]. Jar 0+. 1 6:18 PM [facility] DERMATOPATHOLOGY LABORATORY Microscopic Description Specimen A. SKIN, left upper back: Within the dermis, there is a space lined by epithelium that resembles normal epidermis and the infundibular portion of the hair follicle. 1 6:18 PM [facility] DERMATOPATHOLOGY LABORATORY Disclaimer An external and internal positive and negative controls are appropriate for the histochemical, immunohistochemical and immunofluorescence stain(s) in this case (if any), except where stated explicitly. The performance characteristics of the stain(s) cited in this report were developed and its performance characteristic determined by the Dermatopathology Laboratory at [facility], directed by Dr. Aidee Anaya. These tests need not be, and therefore are not, approved by the [place] Food and Drug Administration. The tests are used for clinical purposes. Billing Codes Specimen Charges Stain Charges 94087 1 1 6:18 PM [facility] DERMATOPATHOLOGY LABORATORY Embedded Images 1 6:18 PM [facility] DERMATOPATHOLOGY LABORATORY Pathology/Cytolog y TISSUE SPECIMEN FROM SKIN / Unknown 11/30/2020 12/01/2020 6:34 AM PAD EXTRACTION TENDER Melodie Thomas MD LAB - PATHOLOGY/CYT OLOGY ORDERABLES DERMATOPATHOLOGY LABORATORY [facility] - Department of Dermatology [facility] Medicine [address] [place] [address], 3rd [place] [address], [facility] [phone] documented in this encounter Visit Diagnoses Not on filedocumented in this encounter Care Teams Investigator Internal Affairs Relationship Specialty Start Date End Date Margie Newton MD [address] [address] PCP - General Family Medicine 11/23/23 documented as of this encounter
--- OUTSIDE RECORDS SUMMARY | 2025-01-31 02:09 | XMS_ITS | Encounter Summary ---
Author Organization [facility] Address [address] [place] [address] Care Team Providers Care Journeyman Welder Name Role Phone Yael Brothers HOOK UP DRIVER Unavailable Margie Newton MD Primary Care Provider Encounter Details Date Type Department Care Team (Late st Contact Info) Description 01/14/2025 Results Follow-Up [facility] Medical Group Obstetrical Gynecology [address] [address] Agata Galvez MD [address] [address] Social History Tobacco Use Types Packs/Day Years Used Date Smoking Tobacco: Never Smokeless Tobacco: Never Alcohol Use Standard Drinks/Week Comments No 0 (1 standard drink = 0.6 oz pur e alcohol) Comments No Sex and Gender Information Value Date Recorded Sex Assigned at Not on file Legal Sex Female 12:52 AM DESIZING MACHINE OPERATOR HEAD END Gender Identity Not on file Sexual Orientation Straight 12/10/2020 1: 02 PM DESIZING MACHINE OPERATOR HEAD END documented as of this encounter Plan of Treatment Not on file documented as of this encounter Visit Diagnoses Not on filedocumented in this encounter Care Teams Journeyman Welder Relationship Specialty Start Date End Date Margie Newton MD [facility] [facility] [place] [address] PCP - General Family Practice 11/23/22 Yael Brothers NP Obstetrics and Gynecology 11/23/22 documented as of this encounter
--- OUTSIDE RECORDS SUMMARY | 2025-01-31 02:09 | XMS_ITS | Encounter Summary ---
Author Organization [facility] Address [facility] [place] [address] Care Team Providers Care Television Presenter Name Role Phone Saad Soria MD Primary Care Provider Margie Newton MD Primary Care Provider [phone] Encounter Details Date Type Department Care Team (Late st Contact Info) Description 12/27/[address] [facility] Family [facility] [address] [place] [address] [facility] Provider RE:PAP Social History Tobacco Use Types Packs/Day Years [...] Sex Assigned at Female 12/13/2024 4:26 PM INSTRUCTOR ADJUNCT SURGICAL TECHNICIAN Legal Sex Female 8:27 PM CDT Gender Identity Female 12/15/2021 5:23 AM INSTRUCTOR ADJUNCT SURGICAL TECHNICIAN Sexual Orientation Straight 12/15/2021 5: 23 AM INSTRUCTOR ADJUNCT SURGICAL TECHNICIAN documented as of this encounter Plan of Treatment Upcoming Encounters Date Type Department Care Team (Late st Contact Info) Description 04/03/2025 12:30 PM CDT [facility] [address] Deisi Haji MD [address] [facility] [address] [place] [address] 05/16/2025 3:40 PM CDT Office Visit [facility] Family Medicine [facility] [address] [place] [phone] Margie Newton MD [facility] [place] [address] documented as of this encounter Visit Diagnoses Not on filedocumented in this encounter Care Teams Television Presenter Relationship Specialty Start Date End Date Saad Soria MD PCP - General FAMILY PRACTICE 12/03/19 05/26/22 Margie Newton MD [address] [place] [address] PCP - General FAMILY PRACTICE 05/27/22 documented as of this encounter
--- OUTSIDE RECORDS SUMMARY | 2025-01-31 02:09 | XMS_ITS | Encounter Summary ---
Author Organization [facility] Address [facility] [place] [address] Care Team Providers Care Signal Person Name Role Phone Margie Newton MD Primary Care Provider [phone] Encounter Details Date Type Department Care Team (Latest Contact Info) Description 04/10/2023 [employer] Message Enc [facility] Medical [facility] Family Medicine [facility] [address] [place] [address] Margie Newton MD [address] [place] [address] [employer] Social History Tobacco Use Types Packs/Day Years [...] Answer Date Recorded Patient Health Questionnaire-2 Score 4 03/28/2023 Comments No Sex and Gender Information Value Date Recorded Sex Assigned at Female 12/13/2024 4:26 PM TRACK MOVING MACHINE OPERATOR Legal Sex Female 8:27 PM CDT Gender Identity Female 12/15/2021 5:23 AM TRACK MOVING MACHINE OPERATOR Sexual Orientation Straight 12/15/2021 5: 23 AM TRACK MOVING MACHINE OPERATOR COVID-19 Exposure Response Date Recorded In the last 10 days, have yo u been in contact with someone who was confirmed or suspected to have Coronavirus/COVID-19? No / Unsure 03/28/2023 8:06 AM CDT documented as of this encounter Plan of Treatment Upcoming Encounters Date Type Department Care Team (Late st Contact Info) Description 04/03/2025 12:30 PM CDT Office Visit [facility] [address] [place] [address] Deisi Haji MD [address] [facility] [address] [place] [address] 05/16/2025 3:40 PM CDT Office Visit [facility] Family Medicine [facility] [address] [place] [address] Margie Newton MD [address] [place] [address] documented as of this encounter Visit Diagnoses Not on filedocumented in this encounter Additional Health Concerns Assessment Noted Time PHQ-9 Depression Total Score: 13 023 8:13 AM CDT documented as of this encounter Care Teams Signal Person Relationship Specialty Start Date End Date Margie Newton MD [address] [place] [address] PCP - General FAMILY PRACTICE 05/27/22 documented as of this encounter
--- OUTSIDE RECORDS SUMMARY | 2025-01-31 02:09 | XMS_ITS | Clinical Summary ---
Author Organization [facility] Address [address] [facility] [place] [address] Care Team Providers Care Receptionist Scheduler Name Role Phone Margie Newton MD Primary Care Provider [phone] Source Comments [facility],non-owned Affiliates and Associated Physician Practices is amultiple site organization consisting of ambulatory clinics and hospital sitesin [place], [place], [place] and [place]. This disclosure is being madepursuant to the Care Everywhere program and may not contain all information available regarding this patient. Last updated 18.[facility] Social History Tobacco Use Types Packs/Day Years Used Date Smoking Tobacco: Never Assessed Sex and Gender Information Value Date Recorded Sex Assigned at Female 09/14/2021 7:00 PM CDT Gender Identity Female 09/14/2021 7:00 PM CDT Sexual Orientation Straight 09/14/2021 7: 00 PM CDT Plan of Treatment Health Maintenance Due Date Last Done Comments COLOGUARD (AGES 45-75) - COLON CA SCREENING 1976 COLON MONITORING 1976 COLONOSCOPY - COLON CA SCREENING 1976 CT COLONOGRAPHY - COLON CA SCREENING 1976 Colorectal Cancer Screening 1976 FIT - COLON CA SCREENING 1976 FLEX SIG - COLON CA SCREENING 1976 LIPID TESTING 1976 MAMMOGRAM 1976 PAP SMEAR 1976 HIV SCREENING 02/12/1991 HEPATITIS C SCREENING 02/08/1994 DTAP/TDAP/TD VACCINES (1 - Tdap) 02/12/1995 HEPATITIS B VACCINE (1 of 3 - 19+ 3-dose series) 02/12/1995 COVID-19 VACCINE (2023- season) 2024 08/31/2021, 02/08/2021, 01/18/2021 INFLUENZA VACCINE (#1) 2024 2, 08/04/2021, 09/20/2020, Additional history exists DEPRESSION SCREENING 11/27/2024 ZOSTER VACCINE (1 of 2) 02/12/2026 HIB VACCINE Aged Out No longer eligi ble based on patient's age to complete this topic HPV VACCINE Aged Out No longer eligi ble based on patient's age to complete this topic MENINGOCOCCAL (Group B) VACCINE Aged Out No longer eligible based on patient's age to complete this topic MENINGOCOCCAL VACCINE Aged Out No em brad eligible based on patient's age to complete this topic PNEUMOCOCCAL VACCINE Aged Out No long er eligible based on patient's age to complete this topic Care Teams Receptionist Scheduler Relationship Specialty Start Date End Date Margie Newton MD [address] [address] PCP - General Family Medicine 11/23/23
--- OUTSIDE RECORDS SUMMARY | 2025-01-31 02:09 | XMS_ITS | Encounter Summary ---
Author Organization [facility] Address [facility] [place] [address] Care Team Providers Care Inventory Control Assistant Name Role Phone Margie Newton MD Primary Care Provider [phone] Encounter Details Date Type Department Care Team (Late Contact Info) Description 05/31/2023 [employer] Message Enc [facility] Medical Group [address] [address] [place], [facility] Provider appt Social History Tobacco Use Types Packs/Day Years [...] Sex Assigned at Female 12/13/2024 4:26 PM CNC MACHINE SETTER Legal Sex Female 8:27 PM CDT Gender Identity Female 12/15/2021 5:23 AM CNC MACHINE SETTER Sexual Orientation Straight 12/15/2021 5: 23 AM CNC MACHINE SETTER COVID-19 Exposure Response Date Recorded In the last 10 days, have yo u been in contact with someone who was confirmed or suspected to have Coronavirus/COVID-19? No / Unsure 05/10/2023 3:15 PM CDT documented as of this encounter Plan of Treatment Upcoming Encounters Date Type Department Care Team (Late st Contact Info) Description 04/03/2025 12:30 PM CDT Office Visit [facility] [address] [place] [address] Deisi Haji MD [address] [place] [address] 05/16/2025 3:40 PM CDT Office Visit [facility] [address] [place] [address] Margie Newton MD [address] [place] [address] documented as of this encounter Visit Diagnoses Not on filedocumented in this encounter Additional Health Concerns Assessment Noted Time PHQ-9 Depression Total Score: 13 023 8:13 AM CDT documented as of this encounter Care Teams Inventory Control Assistant Relationship Specialty Start Date End Date Margie Newton MD [address] [place] [address] PCP - General FAMILY PRACTICE 05/27/22 documented as of this encounter
--- OUTSIDE RECORDS SUMMARY | 2025-01-31 02:09 | XMS_ITS | Encounter Summary ---
Author Organization [facility] Address [facility] [place] [address] Care Team Providers Care Coagulator Name Role Phone Margie Newton MD Primary Care Provider [phone] Encounter Details Date Type Department Care Team (Late st Contact Info) Description 03/10/2023 [employer] Message Enc [facility] Medical [facility] Family Medicine [facility] [address] [place] [address] Margie Newton MD [address] [place] [address] [employer] Social History Tobacco Use Types Packs/Day Years [...] Answer Date Recorded Patient Health Questionnaire-2 Score 2 02/16/2023 Comments No Sex and Gender Information Value Date Recorded Sex Assigned at Female 12/13/2024 4:26 PM PANELBOARD OPERATOR Legal Sex Female 8:27 PM CDT Gender Identity Female 12/15/2021 5:23 AM PANELBOARD OPERATOR Sexual Orientation Straight 12/15/2021 5: 23 AM PANELBOARD OPERATOR COVID-19 Exposure Response Date Recorded In the last 10 days, have yo u been in contact with someone who was confirmed or suspected to have Coronavirus/COVID-19? No / Unsure 02/16/2023 9:28 AM CDT documented as of this encounter Progress Notes * Margie Newton MD - 03/10/2023 5:24 PM CDT Damaris is okay to be a VV at 840am on 03/17/23. Please block everything else that day as we will be at 22. Thanks! ~Dr Eubanks documented in this encounter Plan of Treatment Upcoming Encounters Date Type Department Care Team (Late st Contact Info) Description 04/03/2025 12:30 PM CDT Office Visit [facility] [place] [address] [facility] [address], [address] [place] [address] Deisi Haji MD [address] [facility] [address] [place] [address] 05/16/2025 3:40 PM CDT Office Visit [facility] Family Medicine [facility] [address] [place] [address] Margie Newton MD [address] [place] [address] documented as of this encounter Visit Diagnoses Not on filedocumented in this encounter Additional Health Concerns Assessment Noted Time PHQ-9 Depression Total Score: 11 023 9:44 AM CDT documented as of this encounter Care Teams Coagulator Relationship Specialty Start Date End Date Margie Newton MD [address] [place], [place] [id number] PCP - General FAMILY PRACTICE 05/27/22 documented as of this encounter
--- OUTSIDE RECORDS SUMMARY | 2025-01-31 02:09 | XMS_ITS | Referral Summary ---
Author Organization [facility] Address [address] [facility] [place] [address] Care Team Providers Care Astrobiologist Name Role Phone Margie Newton MD Primary Care Provider [phone] Source Comments [facility],non-owned Affiliates and Associated Physician Practices is amultiple site organization consisting of ambulatory clinics and hospital sitesin [place], [place], [place] and [place]. This disclosure is being madepursuant to the Care Everywhere program and may not contain all information available regarding this patient. Last updated 18.[facility] [employer] Social History Tobacco Use Types Packs/Day Years Used Date Smoking Tobacco: Never Assessed Sex and Gender Information Value Date Recorded Sex Assigned at Female 09/14/2021 7:00 PM CDT Gender Identity Female 09/14/2021 7:00 PM CDT Sexual Orientation Straight 09/14/2021 7: 00 PM CDT Plan of Treatment Not on file Care Teams Astrobiologist Relationship Specialty Start Date End Date Margie Newton MD [address] [facility] [address] [place] [address] PCP - General Family Medicine 11/23/23
--- OUTSIDE RECORDS SUMMARY | 2025-01-31 02:09 | XMS_ITS | Encounter Summary ---
Author Organization [facility] Address [facility] [place] [address] Care Team Providers Care Tracer Lathe Set Up Operator Name Role Phone Saad Soria MD Primary Care Provider [phone] Margie Newton MD Primary Care Provider [phone] Encounter Details Date Type Department Care Team (Late st Contact Info) Description 02/03/2020 MyChart Message Enc [facility] Medical Group Family Medicine - [place] [address] [place] [phone] Saad Soria MD [address] [address] Question Social History Tobacco Use Types Packs/Day Years [...] Sex Assigned at Female 12/13/2024 4:26 PM LANGUAGE TUTOR Legal Sex Female 8:27 PM CDT Gender Identity Female 12/15/2021 5:23 AM LANGUAGE TUTOR Sexual Orientation Straight 12/15/2021 5: 23 AM LANGUAGE TUTOR documented as of this encounter Plan of Treatment Upcoming Encounters Date Type Department Care Team (Late st Contact Info) Description 04/03/2025 12:30 PM CDT Office Visit [facility] [address] [place] [address] Deisi Haji MD [address] [facility] [address] [place] [address] 05/16/2025 3:40 PM CDT Office Visit [facility] Family Medicine [facility] [address] [place] [phone] Margie Newton MD [address] [place] [address] documented as of this encounter Visit Diagnoses Not on filedocumented in this encounter Care Teams Tracer Lathe Set Up Operator Relationship Specialty Start Date End Date Saad Soria MD PCP - General FAMILY PRACTICE 12/03/19 05/26/22 Margie Newton MD [facility] [place] [address] PCP - General FAMILY PRACTICE 05/27/22 documented as of this encounter
--- OUTSIDE RECORDS SUMMARY | 2025-01-31 02:10 | XMS_ITS | Encounter Summary ---
Author Organization [facility] Address [facility] [place] [address] Care Team Providers Care Senior Officer Name Role Phone Saad Soria MD Primary Care Provider [phone] Margie Newton MD Primary Care Provider [phone] Encounter Details Date Type Department Care Team (Late st Contact Info) Description 04/22/2022 MyChart Message Enc [facility] Family Medicine - [place] [address] [place] [address] Saad Soria MD [address] [address] Covid Tests Social History Tobacco Use Types Packs/Day Years Used Date Smoking Tobacco: Never Smokeless Tobacco: Never Alcohol Use Standard Drinks/Week Comments No 0 (1 standard drink = 0.6 oz pur e alcohol) AUDIT-C Answer Date Recorded Frequency of Alcohol Consumption Never 12/16/2019 Average Number of Drinks Not on file 020 Frequency of Binge Drinking Not on file 11/28 PHQ-2 Answer Date Recorded PHQ-2 Score - If the patient scores above 3, please move on to questions 3-9 0 09/01/2021 Comments No Sex and Gender Information Value Date Recorded Sex Assigned at Female 12/13/2024 4:26 PM HYDRO PLANT TECHNICIAN Legal Sex Female 8:27 PM CDT Gender Identity Female 12/15/2021 5:23 AM HYDRO PLANT TECHNICIAN Sexual Orientation Straight 12/15/2021 5: 23 AM HYDRO PLANT TECHNICIAN COVID-19 Exposure Response Date Recorded In the last 10 days, have ramon wesley been in contact with someone who was confirmed or suspected to have Coronavirus/COVID-19? No / Unsure 04/10/2022 6:57 PM CDT documented as of this encounter Progress Notes * Saad Soria MD - 04/26/2022 8:14 AM CDT Robyn provided letter for pt on Monday. documented in this encounter Plan of Treatment Upcoming Encounters Date Type Department Care Team (Late st Contact Info) Description 04/03/2025 12:30 PM CDT Office [facility] [address] [place] [address] Deisi Haji MD [facility] [address] [place] [address] 05/16/2025 3:40 PM CDT Office Visit [facility] Family Medicine - [place] [address] [place] [address] Margie Newton MD [address] [place], [place] [phone] documented as of this encounter Visit Diagnoses Not on filedocumented in this encounter Additional Health Concerns Assessment Noted Time PHQ-9 Depression Total Score: 0 09/01/20 21 9:38 AM CDT documented as of this encounter Care Teams Senior Officer Relationship Specialty Start Date End Date Saad Soria MD PCP - General FAMILY PRACTICE 12/03/19 05/26/22 Margie Newton MD [address] [place], [place] [phone] PCP - General FAMILY PRACTICE 05/27/22 documented as of this encounter
--- OUTSIDE RECORDS SUMMARY | 2025-01-31 02:10 | XMS_ITS | Encounter Summary ---
Author Organization [facility] Address [facility] [place] [address] Care Team Providers Care Linotypist Name Role Phone Saad Soria MD Primary Care Provider Margie Newton MD Primary Care Provider [phone] Encounter Details Date Type Department Care Team (Late st Contact Info) Description 03/23/2021 MyChart Message Enc [facility] Family Medicine - [place] [address] [place] [phone] Saad Soria MD [address] [address] RE: Follow Up/Update Social History Tobacco Use Types Packs/Day Years [...] Sex Assigned at Female 12/13/2024 4:26 PM UNIT NURSE Legal Sex Female 8:27 PM CDT Gender Identity Female 12/15/2021 5:23 AM UNIT NURSE Sexual Orientation Straight 12/15/2021 5: 23 AM UNIT NURSE COVID-19 Exposure Response Date Recorded In the last month, have you been in contact with someone who was confirmed or suspected to have Coronavirus / COVID-19? No / Unsure 03/15/2021 2:07 PM CDT documented as of this encounter Progress Notes * Sharron Stewart MA - 03/23/2021 3:38 PM CDT . documented in this encounter Plan of Treatment Upcoming Encounters Date Type Department Care Team (Late st Contact Info) Description 04/03/2025 12:30 PM CDT Office Visit [facility] [address] [facility] [address] [place] [address] Deisi Haji MD [facility] [address] [place] [address] 05/16/2025 3:40 PM CDT Office Visit [facility] Family Medicine [facility] [address] [place] [phone] Margie Newton MD [address] [place] [address] documented as of this encounter Visit Diagnoses Not on filedocumented in this encounter Care Teams Linotypist Relationship Specialty Start Date End Date Saad Soria MD PCP - General FAMILY PRACTICE 12/03/19 05/26/22 Margie Newton MD [address] [place] [address] PCP - General FAMILY PRACTICE 05/27/22 documented as of this encounter
--- OUTSIDE RECORDS SUMMARY | 2025-01-31 02:10 | XMS_ITS ---
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 decrease in sense of smell. Sinus surgery was [place] [address] Joseph. She received SCIT through at home through Dr. Wilkinson's office with improvement in rhinitis. She has cats at her home. She develops hives if cat scratches her skin. She has a history of 2 episodes of pneumonia and last episode in 1992 and required hospitalization. No history of asthma. She has a history of cardiomyopathy and EF 20% per her reportToday, she reports no fevers, chills, night sweats or other constitutional symptoms Examination Category Sub-Category Detail Notes Category Not es General examination HEENT: conjunctiva are clear bilaterally, no tenderness to palpation of the sinuses, TM's without evidence of acute infection, turbinates 2+ swollen and pale inferiorly bilaterally, clear rhinorrhea is present, no polyps noted, no septal perforation, posterior oropharynx is clear, no exudates, no tongue swelling, and uvula is midline Neck, thyroid : supple, non-tender, no anterior cervical lymphadenopathy Heart: RRR, S1-S2, no murmu rs, no rubs, no gallops Lungs: clear to auscultatio n and percussion in all lung lopez, no wheezes or crackles Abdomen: Extremities: normal ROM, no clubb ing, no cyanosis, no edema General appearance: pleasant, well-devel oped, well-nourished Skin: normal, no rash, tegan matographism, urticaria, angioedema Neurologic exam: unremarkable Oral cavity: normal, no lesions Breasts : not performed Peripheral pulses: normal (2+) bilatera lly Back: normal Genitalia: not performed
--- OUTSIDE RECORDS SUMMARY | 2025-01-31 02:10 | XMS_ITS | Data Portability ---
Author Organization [facility] OFF[facility] Address [address] [place] [address] Care Team Providers Care Transfer Clerk Name Role Phone BRENT MUNOZ Primary Care Provider [phone] Assessment No assessment recorded. Plan of Treatment Reminders Order Date Submit Date Provider Last Modified By Organization Details Last Modified Time Details Appointments None record ed. Lab None record ed. Referral None record ed. Procedures None record ed. Surgeries None record ed. Imaging None record ed. Medication Orders None record ed. Patient TargetsNo targets recorded. Patient Instructions Encounter Date Encounter Id Patient Instructions Last Modified By Organization Details Last Modified Time 11/30/2022 [id number] Weight loss 20 pounds Exercise advised Low cholesterol diet advised Low sodium diet advised. [email or web address] Not available 11/30/2022 15:39:01 05/31/2023 [id number] Weight loss 20 pounds Exercise advised Low cholesterol diet advised Low sodium diet advised. [email or web address] Not available 05/31/2023 17:00:38 05/21/2024 [id number] Weight loss 20 pounds Exercise advised Low cholesterol diet advised Low sodium diet advised. [email or web address] Not available 05/21/2024 18:44:28 Reason for Referral None Reported. Results Created Date Observation Date Name Description Value Unit Range Abnormal Flag Note LastModifiedBy Organization Detail LastModifiedTime 12/02/1911/30/2022 elect roseann diogr am No observ ation record ed. [email or web address] Not Available 2022 09:33:09 07/07/20 23 07/06/2023 , echo aradalgisao gram No observ ation record ed. [facility] [address] [place] [address] Dr Andrade, [place], [address], 07/08/2023 14:06:34 12/06/1912/05/2023 elect rocar diogr am No observ ation record ed. [email or web address] Not Available 2023 16:30:12 09/12/20 24 01/18/2022 US, echoc ardio gram No observ ation record ed. [email or web address] Not Available 2023 12:17:21 09/12/20 24 06/02/2021 US, echoc ardio gram No observ ation record ed. [email or web address] Not Available 2023 12:24:05 09/12/20 24 12/28/2020 US, echoc ardio gram No observ ation record ed. [email or web address] Not Available 2023 12:21:55 09/13/2009/12/2024 elect rocar diogr am No observ ation record ed. [email or web address] Not Available 2023 10:56:10 10/16/20 24 10/01/2024 event monit or No observ ation record ed. [email or web address] Not Available 2023 12:15:50 Result Notes None recorded. Problems Name Problem SNOMED Code Status Onset Date Resolution Date Notes Provider Name and Address Organization Details Recorded Time Hyperlip idemia 97865205 Completed 201502/23/2018 Brittany johnson [place] [facility] 8 14:40:31 Benign hyperten lico 81178838 Completed 201502/23/2018 Brittany johnson [place] [facility] 8 14:40:16 Asthma 882844410 Completed 201508/27/2018 Shauna johnson [facility] 8 11:21:29 Migraine 64908972 Active 2015 [facility] 6 08:01:36 History of depressi on 900194730 Active 2015 [facility] [place] [facility] 6 08:02:03 Hemorrho ids 86190189 Active 2015 [facility] [place] - [facility] 6 08:02:20 Gastroes ophageal reflux disease 799331062 Completed 201508/27/2018 Shauna Cordoba [facility], [facility] 8 11:21:33 Pneumoni a 942534515 Active 2015 [facility] 6 08:04:16 Morbid obesity 243921351 Active 2015 [place], [place] - [facility] 6 08:04:42 Anxiety 80890712 Active 2015 [place], [place] - [facility] 6 08:05:05 Dyspnea on exertion 87324352 Active 2015 Phuong Lewis [facility] 6 01:44:32 Cardiomy opathy 72312542 Active 2015 Secondary cardiomyo grace [place]y Lewis [facility], [place] - [facility] 6 01:51:15 Obstruct jeffry sleep apnea syndrome 91144946 Active 2016 Vanesa Gupta [facility] 7 15:08:31 [facility] hyperten lico 56105263 Active 2017 Brittany Goodwin [facility] 8 14:40:26 Dyslipid emia 970450143 Active 2017 Brittany Goodwin [facility] 8 14:40:37 Notes:secondary cardiomypath y Problem Notes None recorded. Procedures Surgical History Date Name Laterality Status Provider Name and Address Organization Details Recorded Time Tonsillecto my/Adenoide ctomy completed Vanesa Gupta [facility] 07/15/2016 16:32:43 Imaging Results Imaging Date Name Status LastModified by Organization Details LastModified Time 11/30/2022 electrocardiogram completed [email or web address] Informa tion not available 12/02/2022 09:33:09 07/06/2023 US, echocardiogram completed [email or web address] [address]rade, [place], [address], 07/08/2023 14:06:34 12/05/2023 electrocardiogram completed Informa tion not available 12/07/2023 16:30:12 01/18/2022 US, echocardiogram completed Inform ation not available 09/12/2024 12:17:21 06/02/2021 US, echocardiogram completed Inform ation not available 09/12/2024 12:24:05 12/28/2020 US, echocardiogram completed Inform ation not available 09/12/2024 12:21:55 09/12/2024 electrocardiogram completed Informa tion not available 09/13/2024 10:56:10 10/01/2024 event monitor completed Information not available 10/16/2024 12:15:50 Procedure Notes None recorded. Medical Equipment None Reported. Allergies No known drug allergies Medications Name Sig Start Date Stop Date Status Note LastModified by Organization Details LastModified Time amoxicill in 500 mg capsule 07/18 completed Not Available Not Available Not Available medroxypr ogesteron e 10 mg tablet TAKE 2 TABLETS BY MOUTH EVERY DAY DIRECTED ,TAKE PREGNANC Y TEST BEFORE STARTING TO ENSURE NEGATIVE 05/27 completed Not Available Not Available Not Available carvedilo l 25 mg tablet TAKE 1 TABLET BY MOUTH TWICE A DAY active Not Available Not Available No t Available venlafaxi ne ER 37.5 mg capsule,e xtended release 24 hr TAKE 1 CAPSULE BY MOUTH EVERY DAY 08/31 completed Not Available Not Available Not Available carvedilo l 6.25 mg tablet TAKE 1 TABLET BY MOUTH TWICE A DAY 05/27 completed Not Available Not Available Not Available doxycycli ne hyclate 100 mg capsule 08/14 completed Not Available Not Available Not Available cefuroxim e axetil 250 mg tablet 07/18 completed Not Available Not Available Not Available carvedilo l 12.5 mg tablet TAKE 1 TABLET BY MOUTH TWICE A DAY WITH FOOD 05/27 completed Not Available Not Available Not Available oxybutyni n chloride ER 10 mg tablet,ex tended release 24 hr TAKE 1 TABLET BY MOUTH EVERY DAY active Not Available Not Available No t Available azithromy bipin 250 mg tablet 02/26 completed Not Available Not Available Not Available miconazol e nitrate 2 % topical cream APPLY TO AFFECTED AREA TWICE A DAY active Not Available Not Available No t Available fluconazo le 150 mg tablet TAKE 1 TABLET BY MOUTH EVERY THIRD DAY FOR 3 DOSES. active Not Available Not Available No t Available benzonata te 200 mg capsule TAKE 1 CAPSULE BY MOUTH THREE TIMES A DAY FOR 10 DAYS active Not Available Not Available No t Available valacyclo vir 1 gram tablet Take 1 tablet as needed by oral route for 2 days. 08/31 completed Not Available Not Available Not Available epinephri ne (Jr) 0.15 mg/0.3 mL injection ,auto-inj tiana 07/15 completed Not Available Not Available Not Available meloxicam 15 mg tablet TAKE 1 TABLET BY MOUTH EVERY DAY 12/05 completed Not Available Not Available Not Available lisinopri l 20 mg tablet Take 1 tablet every day by oral route as directed . 12/05 completed Not Available Not Available Not Available sertralin e 100 mg tablet TAKE 1 TABLET BY MOUTH EVERY DAY 05/21 completed Not Available Not Available Not Available estradiol 0.1 mg/24 hr semiweekl y transderm al patch APPLY 2 PATCHES TO SKIN EVERY 3 DAYS DIRECTED 05/27 completed Not Available Not Available Not Available valacyclo vir 500 mg tablet TAKE 1 TABLET (500 MG) BY MOUTH TWICE DAILY FOR 3 DAYS. 12/05 completed Not Available Not Available Not Available sildenafi l 25 mg tablet INSERT 1 TABLET IN THE VAGINA FOUR TIMES DAILY 05/27 completed Not Available Not Available Not Available carvedilo l 3.125 mg tablet 05/27 completed Not Available Not Available Not Available ketorolac 10 mg tablet TAKE 1 TABLET (10 MG TOTAL) BY MOUTH 4 (FOUR) TIMES DAILY NEEDED FOR PAIN. 05/27 completed Not Available Not Available Not Available quinapril 10 mg tablet TAKE 1 TABLET BY MOUTH EVERY DAY 05/27 completed Not Available Not Available Not Available progester one 50 mg/mL intramusc ular oil 05/27 completed Not Available Not Available Not Available tamsulosi n 0.4 mg capsule TAKE 1 CAPSULE (0.4 MG TOTAL) BY MOUTH DAILY FOR 10 DAYS. 05/27 completed Not Available Not Available Not Available estradiol valerate 20 mg/mL intramusc ular oil 05/27 completed Not Available Not Available Not Available meclizine 25 mg tablet TAKE 1 TABLET BY MOUTH THREE TIMES A DAY NEEDED 05/21 completed Not Available Not Available Not Available hydrocodo ne 7.5 mg-acetam inophen 325 mg tablet 07/18 completed Not Available Not Available Not Available cephalexi n 500 mg capsule TAKE 1 CAPSULE BY MOUTH THREE TIMES DAILY 01/21 completed Not Available Not Available Not Available ferrous sulfate 325 mg (65 mg iron) tablet TAKE 1 TABLET BY MOUTH EVERY DAY WITH BREAKFAS T 05/21 completed no longer taking per pt 11/29/22 DE Not Available Not Available Not Available ropinirol e 0.5 mg tablet TAKE 1 TABLET BY MOUTH 3 TIMES DAILY. 05/27 completed Not Available Not Available Not Available oxycodone 5 mg capsule 02/26 completed Not Available Not Available Not Available nystatin- triamcino lone 100,000 unit/g-0. 1 % topical cream 08/27 completed Not Available Not Available Not Available sertralin e 25 mg tablet TAKE 1 TABLET BY MOUTH EVERY DAY 05/21 completed Not Available Not Available Not Available omeprazol e 20 mg capsule,d elayed release 07/18 completed Not Available Not Available Not Available estradiol 2 mg tablet TAKE 1 TABLET BY MOUTH THREE TIMES A DAY DIRECTED 05/27 completed Not Available Not Available Not Available quinapril 20 mg tablet TAKE 1 TABLET BY MOUTH EVERY DAY 03/23 completed 03/23/23 pharmacy cannot get this drug/ek Not Available Not Available Not Available azelastin e 137 mcg (0.1 %) nasal spray 07/18 completed Not Available Not Available Not Available methylpre dnisolone 4 mg tablets in a dose pack TAKE 6 TABLETS ON DAY 1 DIRECTED ON PACKAGE AND DECREASE BY 1 TAB EACH DAY FOR A TOTAL OF 6 DAYS 12/05 completed Not Available Not Available Not Available albuterol sulfate HFA 90 mcg/actua tion aerosol inhaler INHALE 1-2 INHALATI ONS BY MOUTH EVERY 4-6 HOURS NEEDED FOR WHEEZING X 10D active Not Available Not Available No t Available ketoconaz ole 2 % topical cream APPLY TO AFFECTED AREA 3 TIMES A DAY active Not Available Not Available No t Available ondansetr on 4 mg disintegr ating tablet TAKE 1 TABLET BY MOUTH EVERY 8 HOURS NEEDED FOR NAUSEA 05/27 completed Not Available Not Available Not Available fluticaso ne propionat e 50 mcg/actua tion nasal spray,balta pension USE 1 SPRAY BY NASAL ROUTE DAILY FOR 30 DAYS active Not Available Not Available No t Available sertralin e 50 mg tablet TAKE 1 TABLET BY MOUTH EVERY DAY 08/31 completed Not Available Not Available Not Available medroxypr ogesteron e 150 mg/mL intramusc ular suspensio n INTRAMUS CULAR INJECT 150 MG INTRAMUS CULARLY EVERY 12 WEEKS 05/27 completed Not Available Not Available Not Available ramipril 5 mg capsule TAKE 1 CAPSULE BY MOUTH EVERY DAY 2024 active Not Available Not Available Not Avai lable amoxicill in 875 mg-potass ium clavulana te 125 mg tablet TAKE 1 TABLET BY MOUTH TWICE A DAY FOR 10 DAYS active Not Available Not Available No t Available Estrace 0.01% (0.1 mg/gram) vaginal cream 07/18 completed Not Available Not Available Not Available azithromy bipin 500 mg tablet 08/14 completed Not Available Not Available Not Available rosuvasta tin 10 mg tablet TAKE 1 TABLET BY MOUTH EVERYDAY AT BEDTIME active Not Available Not Available No t Available Prilosec OTC 20 mg tablet,de layed release Take by oral route. 07/18 completed Not Available Not Available Not Available bupropion HCl XL 300 mg 24 hr tablet, extended release TAKE 1 TABLET BY MOUTH EVERY DAY 11/30 completed pt no longer taking per pt 11/29/22 DE Not Available Not Available Not Available bupropion HCl XL 150 mg 24 hr tablet, extended release TAKE 1 TABLET BY MOUTH EVERY DAY IN THE MORNING active Not Available Not Available No t Available nitrofura ntoin monohydra te/macroc rystals 100 mg capsule 08/14 completed Not Available Not Available Not Available duloxetin e 30 mg capsule,d elayed release TAKE 1 CAPSULE BY MOUTH EVERY DAY 05/27 completed Not Available Not Available Not Available Fish Oil 09/26 completed Not Available Not Available Not Available biotin 05/19 completed Not Available Not Available Not Available calcium citrate qd 05/19 completed Not Available Not Available Not Available cetirizin e 10 mg 1 tab as needed 07/10 completed Not Available Not Available Not Available multivita min 1 tab qd 02/26 completed Not Available Not Available Not Available Asprin Ec Low Dose 1 tab qd 05/19 completed Not Available Not Available Not Available Optisourc e 4 qd 05/27 completed Not Available Not Available Not Available ferrous sulfate 324 mg (65 mg iron) tablet,de layed release Take 0.5 tablets every day by oral route. 01/21 completed Not Available Not Available Not Available levocetir izine 05/27 completed Not Available Not Available Not Available Vitamin D3 50 mcg (2,000 unit) capsule Take 2 capsules every day by oral route. active Not Available Not Available No t Available azelastin e 137 mcg-fluti casone 50 mcg/spray nasal spray SPRAY 1 SPRAY INTRANAS ALLY TWICE A DAY FOR 30 DAYS active Not Available Not Available No t Available BD Insulin Syringe Ultra-Fin e 1 mL 31 gauge x 5/16 01/21 completed Not Available Not Available Not Available Auvi-Q 0.3 mg/0.3 mL injection , auto-inje ctor INJECT INTO THE MUSCLE ONCE DIRECTED active Not Available Not Available No t Available brexpipra zole Take 1 tablet daily 12/05 completed Not Available Not Available Not Available Vraylar 1.5 mg capsule TAKE 1 CAPSULE BY MOUTH DAILY. 05/31 completed Not Available Not Available Not Available Vraylar 3 mg capsule TAKE 1 CAPSULE BY MOUTH DAILY. 05/31 completed Not Available Not Available Not Available Trintelli x 10 mg tablet TAKE 1 TABLET BY MOUTH EVERY DAY active Not Available Not Available No t Available vitamin B12 1,000 mcg-folic acid 400 mcg sublingua l lozenge Place 1 lozenge every day by sublingu al route. 01/21 completed Pt not taking - 0 Not Available Not Available Not Available Adult Aspirin Regimen 81 mg tablet,de layed release Take 1 tablet every day by oral route. active Not Available Not Available No t Available Zepbound 2.5 mg/0.5 mL subcutane ous pen injector INJECT 2.5 MG SUBCUTAN EOUSLY ONCE WEEKLY active Not Available Not Available No t Available Klayesta 100,000 unit/gram topical powder APPLY TO FOLDS 3 TIMES A DAY active Not Available Not Available No t Available Vitals Date Recorded Body height Body mass index (BMI) Body weight Heart rate Oxygen saturation Oxygen saturation in Arterial blood by Pulse oximetry Systolic blood pressure Diastolic blood pressure Provider Name and Address Organization Details Last Updated DateTime 3 162.56 cm 42.4 kg/m2 780403. 32 g 63 /min 98 % 98 % 122 mm[Hg] 78 mm[Hg] Franchesca Mooneyers [facility] 3 15:19:38 Date Recorded Body height Body mass index (BMI) Body weight Heart rate Respiratory rate Oxygen saturation Oxygen saturation in Arterial blood by Pulse oximetry Systolic blood pressure Diastolic blood pressure Provider Name and Address Organization Details Last Updated DateTime 3 162.56 cm 43.1 kg/m2 252712. 68 g 61 /min 16 /min 94 % 94 % 122 mm[Hg] 62 mm[Hg] Bobby Steele [facility] 3 16:19:35 Date Recorded Body height Body mass index (BMI) Body weight Heart rate Oxygen saturation Oxygen saturation in Arterial blood by Pulse oximetry Systolic blood pressure Diastolic blood pressure Provider Name and Address Organization Details Last Updated DateTime 4 162.56 cm 44.1 kg/m2 810351. 24 g 62 /min 94 % 94 % 135 mm[Hg] 81 mm[Hg] Franca Crandall [facility] 4 16:01:41 Date Recorded Body height Body mass index (BMI) Body weight Heart rate Oxygen saturation Oxygen saturation in Arterial blood by Pulse oximetry Systolic blood pressure Diastolic blood pressure Provider Name and Address Organization Details Last Updated DateTime 4 162.56 cm 44.1 kg/m2 593263. 24 g 72 /min 97 % 97 % 106 mm[Hg] 70 mm[Hg] Melanie Serna [facility] 4 18:19:05 Date Recorded Body height Body mass index (BMI) Body weight Heart rate Oxygen saturation Oxygen saturation in Arterial blood by Pulse oximetry Systolic blood pressure Diastolic blood pressure Provider Name and Address Organization Details Last Updated DateTime 4 162.56 cm 45.1 kg/m2 212212. 79 g 61 /min 97 % 97 % 136 mm[Hg] 75 mm[Hg] Franca Crandall [facility] 4 18:26:14 Social History Question Answer Notes LastModified by Organizat ion Details LastModified Time Tobacco Smoking Status Never Smoker Vanesa johnson [facility] 07/15/2016 16:35:42 Do You Or Have You Ever Used E-cigarettes Or Vape? Never Used Electronic Cigarettes Information not available 01/18/2020 What Was The Date Of Your Most Recent Tobacco Screening? 02/25/2019 Information not available 06/20/2019 Do You Or Have You Ever Used Smokeless Tobacco? Never Used Smokeless Tobacco Information not available 01/18/2020 How Much Tobacco Do You Smoke? No Information not available 01/18/2020 How Many Years Have You Smoked Tobacco? 0 Information not available 08/11/2017 Sex: Unknown Functional Status None recorded. Mental Status None recorded. Family History Relationship Description Onset Age of this Age Resolved Age Notes LastModified by Organization Details LastModified Time Father Hypertensive disorder [email or web address] Not available 2015 16:35:12 Mother Hypertensive disorder [email or web address] Not available 2015 16:35:20 Mother Diabetes mellitus [email or web address] Not available 2015 16:35:39 Medical History Condition Response Hyperlipidemia Y Depression Y Asthma Y GERD/Reflux Y Hypertension Y Gynecological HistoryNo gynecological history recorded. Obstetrics History GPAL:G 0 P 0 0 0 0 Past Encounters Encounter ID Performer Location Encounter Start Date Encounter Closed Date Diagnosis/Indication Diagnosis SNOMED-CT Code Diagnosis ICD10 Code Diagnosis Note [id number] MD Kirt Jensen Office [address] [facility] [place] [address] 07/18/2016 10:37:03 07/19/2016 12:25:24 Benign hypertension 19735984 I10 Now well controlled Cardiomyopathy 62866173 I42.9 ef 40% NOW Dyspnea on exertion 6084 5006 R06.09 Morbid obesity 642611347 E66.01 Obstructiv e sleep apnea syndrome 68023838 G47.33 On CpapNeeds cpap FU [id number] MD Kirt Jensen Office [address] [facility] [address] [address] [place] [address] 01/16/2017 10:27:12 01/17/2017 13:32:11 Benign hypertension 65495627 I10 Now well controlled Cardiomyopathy 38079940 I42.9 ef 40% NOW Dyspnea on exertion 6084 5006 R06.09 Morbid obesity 908656920 E66.01 Obstructiv e sleep apnea syndrome 35722092 G47.33 On CpapNeeds cpap FU Right bund le branch block 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 [id number] MD Kirt Jensen Office [address] [facility] [address] [place] [address] 08/14/2017 11:58:18 08/14/2017 13:08:23 Benign hypertension 76914540 I10 Now well controlled Cardiomyopathy 09146975 I42.9 ef 40% NOW Dyspnea on exertion 6084 5006 R06.09 Morbid obesity 588465882 E66.01 20 lb. weight loss recommende d over the next 2 months. Obstructiv e sleep apnea syndrome 00194343 G47.33 On CpapNeeds cpap FU Right bund [place] branch block 60592027 I45.10 Dyslipidemia 710286102 E 78.5 Needs to keep LDL less than 100, and HDL more than 40. [id number] MD Kirt Jensen Office [address] [facility] [address] [address] [place] [address] 02/26/2018 11:11:06 02/26/2018 15:55:03 Benign hypertension 00049334 I10 Now well controlled Cardiomyopathy 19031624 I42.9 EF 40% now 02/26/18 Obtain echo to evaluate for structural /functiona l disease prior to follow up. Morbid obesity 888498842 E66.01 02/26/18 Had gastric sleeve surgery on 02/12/18 Obstructiv e sleep apnea syndrome 44947216 G47.33 On Cpap Dyslipidemia 057586313 E 78.5 02/21/18 LDL 153Needs to keep LDL less than 100, and HDL more than 40. Will get repeat FLP prior to next visit, order given. [id number] MD Kirt Jensen Office [address] [facility] [facility] [address] [address] [place] [address] 08/27/2018 10:57:58 08/27/2018 11:36:44 Benign hypertension 32496638 I10 Now well controlled Cardiomyopathy 67876027 I42.9 Had ECHO done in 06/04/18 showed normal global systolic function , EF 60-6% Continue maximal medical treatment. Morbid obesity 776056283 E66.01 Had gastric sleeve surgery on 02/12/18. Obstructiv e sleep apnea syndrome 89645386 G47.33 Pt is on CPAP and is compliant. Patient is benefittin g with CPAP therapy and will continue nightly use. Dyslipidemia 567793890 E 78.5 Needs to keep LDL less than 100, and HDL more than 40 08/18/18: TC 215, HDL 45, LDL 141, Tri 159 Want to diet control for now due her recent gastric sleeve and significan t weight loss. [id number] MD Kirt Jensen Office [address] [place] [address] 02/25/2019 10:42:27 02/25/2019 11:58:47 Benign hypertension 40899649 I10 Now well controlled Cardiomyopathy 98295749 I42.9 Had ECHO done in 06/04/18 showed normal global systolic function , EF 60-6% Continue maximal medical treatment. Morbid obesity 340047777 E66.01 Had gastric sleeve surgery on 02/12/18. Obstructiv e sleep apnea syndrome 47172432 G47.33 Pt is on CPAP and is compliant. Patient is benefittin g with CPAP therapy and will continue nightly use. Dyslipidemia 600633929 E 78.5 will add Crestor Atypical chest pain 1025 05187 R07.89 Treadmill Myoview Stress test, has high Chunky Risk score. Has Known CAD, or CAD risk equivalent . To look for any ischemia. [id number] MD Kirt Jensen Office [address] [facility] [address] [place] [address] 07/15/2019 11:47:29 07/15/2019 12:35:54 Benign hypertension 93209985 I10 Now well controlled . Cardiomyopathy 14632352 I42.9 Left ventricula r function as normalized . Euvolemic, asymptomat ic today. Had ECHO done in 06/04/18 showed normal global systolic function , EF 60-6% 01/30/17 ECHOCARDIO GRAM REPORT: Study quality: Technicall y difficult. LV chamber is moderately dilated. LV wall thickness is decreased. There is moderate global hypokinesi s. The estimated left ventricle ejection fraction is 40-45%( abnormal). Diastolic function is abnormal (grade 1). RV size is mildly dilated. There is a mild right ventricula r systolic dysfunctio n. There is mild RV hypertroph y. There is trace tricuspid regurgitat ion. The ascending aorta is mildly dilated. Continue maximal medical treatment. Morbid obesity 145896867 E66.01 Had gastric sleeve surgery on 02/12/18. Obstructiv e sleep apnea syndrome 81736183 G47.33 Pt is on CPAP and is compliant. Patient is benefittin g with CPAP therapy and will continue nightly use. Dyslipidemia 746186632 E 78.5 Started crestor 02/2019; will order fasting lipids for follow up. Needs to keep LDL less than 100, and HDL more than 40 Continue crestor. Dyspnea on exertion 6084 5006 R06.09 Improved. 06/04/18 ECHO: LV chamber size is normal. There is borderline LV hypertroph y. There is normal global systolic function and contractil ity. There is a segmental wall motion abnormalit y. The estimated left ventricle ejection fraction is 60-65%(nor mal). E to A mitral inflow reversal is consistent with possible diastolic dysfunctio n. The aortic valve is mildly calcified. There is a possible tricuspid aortic valve. Degenerati ve aortic valve, cannot exclude vegetation /thrombus/ mass. There is mild thickening of mitral valve anterior leaflet. There is mild calcificat ion of the mitral valve leaflets. There is a moderate pericardia l effusion. 03/12/19 TDM-Negati ve stress test. Normal LV systolic function. LVEF 50%. [id number] Eun Wiggins [facility] [address] [place] [address] 01/21/2020 17:23:12 01/21/2020 21:31:53 Benign hypertension [id number] I10 Now well controlled . Cardiomyopathy [id number] I42.9 Left ventricula r function normalized . Euvolemic, asymptomat ic today.repo rts fatigue with coreg. Will decreased dose to 3.125 BID Had ECHO done in 06/04/18 showed normal global systolic function , EF 60-6% 01/30/17 ECHOCARDIO GRAM REPORT: Study quality: Technicall y difficult. LV chamber is moderately dilated. LV wall thickness is decreased. There is moderate global hypokinesi s. The estimated left ventricle ejection fraction is 40-45%( abnormal). Diastolic function is abnormal (grade 1). RV size is mildly dilated. There is a mild right ventricula r systolic dysfunctio n. There is mild RV hypertroph y. There is trace tricuspid regurgitat ion. The ascending aorta is mildly dilated. Continue maximal medical treatment. Morbid obesity 806927014 E66.01 Had gastric sleeve surgery on 02/12/18. Obstructiv e sleep apnea syndrome [id number] G47.33 Pt is on CPAP and is compliant. Patient is benefittin g with CPAP therapy and will continue nightly use. Dyslipidemia 382654221 E 78.5 Started crestor 02/2019 Needs to keep LDL less than 100, and HDL more than 40 LDL 101 Continue crestor. Dyspnea on exertion 6084 5006 R06.09 Improved. 06/04/18 ECHO: LV chamber size is normal. There is borderline LV hypertroph y. There is normal global systolic function and contractil ity. There is a segmental wall motion abnormalit y. The estimated left ventricle ejection fraction is 60-65%(nor mal). E to A mitral inflow reversal is consistent with possible diastolic dysfunctio n. The aortic valve is mildly calcified. There is a possible tricuspid aortic valve. Degenerati ve aortic valve, cannot exclude vegetation /thrombus/ mass. There is mild thickening of mitral valve anterior leaflet. There is mild calcificat ion of the mitral valve leaflets. There is a moderate pericardia l effusion. 03/12/19 TDM-Negati ve stress test. Normal LV systolic function. LVEF 50%. Fatigue 58093490 R53.83 Will reduce Carvedilol from 6.25mg to 3.125 mg to see if that improves fatigue. [address] Tito Johnson [facility] [place] [address] 07/10/2020 09:10:45 07/10/2020 10:13:44 Benign hypertension 91035841 I10 07/10/2020N ow well controlled . Cardiomyopathy 91670523 I42.9 07/10/2020 Left ventricula r function normalized . Euvolemic, asymptomat ic today.repo rts fatigue with coreg. Self increased to 6.25 Had ECHO done in 06/04/18 showed normal global systolic function , EF 60-6% 01/30/17 ECHOCARDIO GRAM REPORT: Study quality: Technicall y difficult. LV chamber is moderately dilated. LV wall thickness is decreased. There is moderate global hypokinesi s. The estimated left ventricle ejection fraction is 40-45%( abnormal). Diastolic function is abnormal (grade 1). RV size is mildly dilated. There is a mild right ventricula r systolic dysfunctio n. There is mild RV hypertroph y. There is trace tricuspid regurgitat ion. The ascending aorta is mildly dilated. Continue maximal medical treatment. Morbid obesity 703883043 E66.01 07/10/2020R emains obeseHad gastric sleeve surgery on 02/12/18. Obstructiv e sleep apnea syndrome 76594133 G47.33 07/10/2020P t is on CPAP and is not compliant. Encourage better compliance Dyslipidemia 897533224 E 78.5 07/10/2020November LDL 101. Encourage diet and exercise. Continue Crestor. Started crestor 02/2019 Needs to keep LDL less than 100, and HDL more than 40 LDL 101 Continue crestor. Dyspnea on exertion 6084 5006 R06.09 Improved. 06/04/18 ECHO: LV chamber size is normal. There is borderline LV hypertroph y. There is normal global systolic function and contractil ity. There is a segmental wall motion abnormalit y. The estimated left ventricle ejection fraction is 60-65%(nor mal). E to A mitral inflow reversal is consistent with possible diastolic dysfunctio n. The aortic valve is mildly calcified. There is a possible tricuspid aortic valve. Degenerati ve aortic valve, cannot exclude vegetation /thrombus/ mass. There is mild thickening of mitral valve anterior leaflet. There is mild calcificat ion of the mitral valve leaflets. There is a moderate pericardia l effusion. 03/12/19 TDM-Negati ve stress test. Normal LV systolic function. LVEF 50%. Fatigue 94643757 R53.83 07/10/2020L ikely related to depression [id number] New Curran MD [facility] [address] [place] [address] 05/27/2022 11:59:59 05/27/2022 13:41:18 Benign hypertension 30958669 I10 07/10/2020N ow well controlled . Cardiomyopathy 72275622 I42.9 07/10/2020 Left ventricula r function normalized . euvolemia, asymptomat ic today.repo rts fatigue with coreg. Had ECHO done in 06/04/18 showed normal global systolic function , EF 60-6% 01/30/17 ECHOCARDIO GRAM REPORT: Study quality: Technicall y difficult. LV chamber is moderately dilated. LV wall thickness is decreased. There is moderate global hypokinesi s. The estimated left ventricle ejection fraction is 40-45%( abnormal). Diastolic function is abnormal (grade 1). RV size is mildly dilated. There is a mild right ventricula r systolic dysfunctio n. There is mild RV hypertroph y. There is trace tricuspid regurgitat ion. The ascending aorta is mildly dilated. Continue maximal medical treatment. Morbid obesity 424012012 E66.01 07/10/2020R emains obeseHad gastric sleeve surgery on 02/12/18. Obstructiv e sleep apnea syndrome 84316306 G47.33 Pt is on CPAP and is not compliant. Encourage better compliance Dyslipidemia 684249402 E 78.5 Needs to keep LDL less than 70, and HDL more than 40Will get fasting lipids for follow up Dyspnea on exertion 6084 5006 R06.09 Improved. Will get echo report from [facility] 03/12/19 TDM-Negati ve stress test. Normal LV systolic function. LVEF 50%. Fatigue 81351734 R53.83 07/10/2020L ikely related to depression [id number] MD Kirt [facility] [address] [address] 08/31/2022 14:01:23 08/31/2022 15:31:45 Benign hypertension 41263899 I10 07/10/2020N ow well controlled . Cardiomyopathy 61165551 I42.9 07/10/2020 Left ventricula r function normalized . euvolemia, asymptomat ic today.repo rts fatigue with coreg. Had ECHO done in 06/04/18 showed normal global systolic function , EF 60-6% 01/30/17 ECHOCARDIO GRAM REPORT: Study quality: Technicall y difficult. LV chamber is moderately dilated. LV wall thickness is decreased. There is moderate global hypokinesi s. The estimated left ventricle ejection fraction is 40-45%( abnormal). Diastolic function is abnormal (grade 1). RV size is mildly dilated. There is a mild right ventricula r systolic dysfunctio n. There is mild RV hypertroph y. There is trace tricuspid regurgitat ion. The ascending aorta is mildly dilated. Continue maximal medical treatment. Morbid obesity 167107718 E66.01 07/10/2020R emains obeseHad gastric sleeve surgery on 02/12/18. Obstructiv e sleep apnea syndrome 00110281 G47.33 Pt is on CPAP and is not compliant. Encourage better compliance Dyslipidemia 964676125 E 78.5 Needs to keep LDL less than 70, and HDL more than 40Will get fasting lipids for follow up Dyspnea on exertion 6084 5006 R06.09 Improved. Will get echo report from [facility] 03/12/19 TDM-Negati ve stress test. Normal LV systolic function. LVEF 50%. Fatigue 72703876 R53.83 07/10/2020L ikely related to depression Depressive disorder 7070 6918 F32.A treatment and evaluation by primary care doctor [id number] MD Kirt [facility] [address] [place] [address] 11/30/2022 14:54:18 11/30/2022 15:41:39 Benign hypertension 69547277 I10 07/10/2020N ow well controlled . Cardiomyopathy 21076052 I42.9 07/10/2020 Left ventricula r function normalized . euvolemia, asymptomat ic today.repo rts fatigue with coreg. Had ECHO done in 06/04/18 showed normal global systolic function , EF 60-6% 01/30/17 ECHOCARDIO GRAM REPORT: Study quality: Technicall y difficult. LV chamber is moderately dilated. LV wall thickness is decreased. There is moderate global hypokinesi s. The estimated left ventricle ejection fraction is 40-45%( abnormal). Diastolic function is abnormal (grade 1). RV size is mildly dilated. There is a mild right ventricula r systolic dysfunctio n. There is mild RV hypertroph y. There is trace tricuspid regurgitat ion. The ascending aorta is mildly dilated. Continue maximal medical treatment. Morbid obesity 766997207 E66.01 07/10/2020R emains obeseHad gastric sleeve surgery on 02/12/18. Obstructiv e sleep apnea syndrome 89148155 G47.33 Pt is on CPAP and is not compliant. Encourage better compliance Dyslipidemia 293999493 E 78.5 Needs to keep LDL less than 70, and HDL more than 40Will get fasting lipids for follow up Dyspnea on exertion 6084 5006 R06.09 Improved. Will get echo report from [facility] 03/12/19 TDM-Negati ve stress test. Normal LV systolic function. LVEF 50%. Fatigue 87485543 R53.83 07/10/2020L ikely related to depression Depressive disorder 2648 9007 F32.A treatment and evaluation by primary care doctor [id number] New Curran MD [facility] [address] [place] [address] 05/31/2023 15:41:40 05/31/2023 17:22:45 Benign hypertension 08834444 I10 Now well controlled . Cardiomyopathy 06638339 I42.9 Left ventricula r function normalized . euvolemia, asymptomat ic today.repo rts fatigue with coreg.Obta in echo to evaluate for structural /functiona l disease. Continue maximal medical treatment. Morbid obesity 820007312 E66.01 07/10/2020R emains obeseHad gastric sleeve surgery on 02/12/18. Obstructiv e sleep apnea syndrome 96571792 G47.33 Pt is on CPAP and is not compliant. Encourage better compliance Dyslipidemia 268553021 E 78.5 Needs to keep LDL less than 70, and HDL more than 40Will get fasting lipids for follow up Dyspnea on exertion 6084 5006 R06.09 Improved. Will get echo report from [facility] 03/12/19 TDM-Negati ve stress test. Normal LV systolic function. LVEF 50%. Fatigue 66128739 R53.83 Likely related to depression Depressive disorder 9378 9007 F32.A treatment and evaluation by primary care doctor 40715 New Curran MD [facility] [address] [place] [address] 12/05/2023 15:31:13 12/05/2023 16:50:28 Benign hypertension 45584701 I10 Now well controlled . Cardiomyopathy 10255236 I42.9 Left ventricula r function normalized . euvolemia, asymptomat ic today.repo rts fatigue with coreg. Continue maximal medical treatment. Morbid obesity 297827444 E66.01 07/10/2020R emains obeseHad gastric sleeve surgery on 02/12/18. Obstructiv e sleep apnea syndrome 46224008 G47.33 Pt is on CPAP and is not compliant. Encourage better compliance Dyslipidemia 251887870 E 78.5 Needs to keep LDL less than 70, and HDL more than 40Will get fasting lipids for follow up Dyspnea on exertion 6084 5006 R06.09 Improved. Will get echo report from [facility] 03/12/19 TDM-Negati ve stress test. Normal LV systolic function. LVEF 50%. 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 Cardiomyopathy 02232471 I42.9 Left ventricula r function normalized . euvolemia, asymptomat ic today.repo rts fatigue with coreg. Continue maximal medical treatment. Morbid obesity 938091092 E66.01 07/10/2020R emains obeseHad gastric sleeve surgery on 02/12/18. Obstructiv e sleep apnea syndrome 44700229 G47.33 Pt is on CPAP and is not compliant. Encourage better compliance Dyslipidemia 524674863 E 78.5 Needs to keep LDL less than 70, and HDL more than 40Will get fasting lipids for follow up Dyspnea on exertion 6084 5006 R06.09 Improved. ECHO 01/18/22: Mildly dilated LV with normal LV wall thickness and normal LV ejection fraction (LVEF 63%) but reduced strain (GLS - 15.3%). 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 Grade I diastolic dysfunctio n. Normal AV. Mild MR. Normal LA size. Mildly dilated and mildly hypokineti c RV. Mild TR. PASP 30 mmHg. Normal IVC/RAP. Normal aorta. 03/12/19 TDM-Negati ve stress test. Normal LV systolic function. LVEF 50%. Fatigue 01285407 R53.83 Likely related to depression Depressive disorder 3548 9007 F32.A treatment and evaluation by primary care doctor Congenital heart disease 70876896 Q24.9 with anomaly of the Aorta no symptoms nowNo need for any further work up [id number] New Curran MD [place] [facility] [place] [address] 09/12/2024 18:09:41 09/12/2024 18:48:55 Benign hypertension 15357222 I10 Now well controlled . Cardiomyopathy 25966340 I42.9 Left ventricula r function normalized . euvolemia, asymptomat ic today.repo rts fatigue with coreg. Continue maximal medical treatment. Morbid obesity 392707303 E66.01 07/10/2020R emains obeseHad gastric sleeve surgery on 02/12/18. Obstructiv e sleep apnea syndrome 65880292 G47.33 Pt is on CPAP and is not compliant. Encourage better compliance Dyslipidemia 451969231 E 78.5 Needs to keep LDL less than 70, and HDL more than 40Will get fasting lipids for follow up Fatigue 77978182 R53.83 Likely related to depression Depressive disorder 3548 9007 F32.A treatment and evaluation by primary care doctor Congenital heart disease 14293595 Q24.9 with anomaly of the Aorta no symptoms nowNo need for any further work up Syncope 854482618 R55 14 days event monitor Health Concerns Section Related Observation LastModified by Organization Detai ls LastModified Time None Recorded Concern Status LastModified by Organization Details LastModified Time None Recorded Advance Directives Directive None Recorded Payers Encounter Date Sequence Insurance Name Policy Number Policy Rosas Covered Member ID Rosas Member ID Guarantor Name 11/30/2022 1 [place] [id number] Damaris Giron [id number] Damaris Giron 05/31/2023 1 [place] [id number] Damaris R Looser [id number] Damaris R Looser 12/05/2023 1 [place] [id number] Damaris R Looser [id number] Damaris R Looser 05/21/2024 1 [place] [id number] Damaris R Looser [id number] Damaris R Looser 09/12/2024 1 [place] [id number] Damaris R Looser [id number] Damaris R Looser Notes Date Note Type Note Provider Name and Address Organization Details Recorded Time 11/30/2022 text/html 11/30/21CC : Car diac follow up, dyspnea on [id number] years-old white woman with history of VSD s/p closure in 1977 (when she was 3 y/o), cardiomyopathy, PAL, and obesity presents today for 3 month follow-up. She was last seen in the clinic on 08/31/22, since then she has Depression, not very activeShe denies ER visits and hospitalizations since she was last seen. Denies chest pain.Denies shortness of breath at rest. Has mild dyspnea on exertion.No orthopnea. No PNDs.Denies heart palpitations.Denies dizziness. Denies syncope or near syncope.No ankle or leg edema.No major bleeding events.No reported side effects from medications. Taking medications as prescribed with no missed doses.Denies snoring, daytime somnolence and AM headache.*Last LDL was 159 done on 05/30/22.Pt takes rosuvastatin 10 mg. Previously:She has fatigue, and dyspnea on exertion, she is depressed as she lost her Reports palpitations once day when going to bed. Has not been exercising as much due to depression, followed by PCP. No other current complaints. Increase in depression, resulting in days where she does not get out of bed. Self increased her coreg to 6.25 with the increase of palpitations. Reports that her PCP has increased her antidepressant and her anxiety medication as well. 03/12/19 TDM-Negative stress test. Normal LV systolic function. LVEF 50%. Had ECHO done in 06/04/18 showed normal global systolic function , EF 60-65% Had negative stress test done in 09/28/15 with EF 49%. Has PAL and is on nightly CPAP therapy. Results from this visit, or from the past: 07-20-2019 CMP 07/20/2019 GL 82 BUN 13 CR 0.81 NA 144 K 4.1 CH 109 CO2 27 CA 8.9 AST 16 ALT 17 ALK PH 57lipid panel, blood [id number] 07/20/2019 CH 164 HDL 53 TR 118 LDL 90Attachment contains 2 Lab Results including: lipid panel, blood 02-16-2019 cholesterol 231,Triglycerides 139,HDL 54,LDL LIPID PANEL - cholesterol 231,Triglycerides 139,HDL 54,LDL [id number] 02/21/2018: creatine kinase : TC 215, HDL 45, LDL 141, Tri 159 02/21/18: TC 215, HDL 37, TG 127, LDL 7902006/17/17: Na 140 ,K 4.1 ,CL 105 ,CO2 25 ,GLU 88 ,BUN 15,CR 0.71,CK 25,TC 196,TG 148,HDL 45 ,LDL 121 ,AST 15,ALT 16 , VIT D : TC 194, HDL 43, TR 135, LDL 124.02/29/16 :SOD 142,K 4.2,CL 108,CO2 25,GLU 90,BUN 13,CR 0.79,AST 41,ALT 67,TC 204,TG 113,HDL 47,LDL 134,Vit D 27.5. EKG (07/10/20): NSR, RBBB, NSSTEKG, 01/21/20: Low voltage chest leads. muEKG, 01/21/20: Low voltage chest leads. mu treadmill nuclear stress test (PROC) 03-12-2019 03/12/19 TDM-Negative stress test. Normal LV systolic function. LVEF 50%. electrocardiogram 02-25-2019 EKG 02/25/19 possible incomplete RBBB,low voltage chest leads EKG 02/26/18: RBBB. Low voltage chest leadsEK08/14/17 Sinus rhythm. RBBB and right axis. Possible right ventricular hypertrophy - consider pulmonary disease. ABNORMAL.01/16/17 EKG: Sinus rhythm. Right bundle branch block and right axis- possible right ventricular hypertrophy- consider pulmonary disease. Abnormal.EK07/18/16 Sinus Rhythm -frequent ectopic ventricular beats. #VECS = 5. RBBB. Abnormal.EK01/18/16 Sinus rhythm. RBBB. Abnormal. 03/12/19 TDM-Negative stress test. Normal LV systolic function. LVEF 50%.CTA chest 09/30/2018 STRESS TEST: NUC: 09/28/15 Negative stress test. Normal LV systolic function. Abnormal stress test. Artifact noted. LVEF 49%. 06/04/18 ECHO: LV chamber size is normal. There is borderline LV hypertrophy. There is normal global systolic function and contractility. There is a segmental wall motion abnormality. The estimated left ventricle ejection fraction is 60-65%(normal). E to A mitral inflow reversal is consistent with possible diastolic dysfunction. The aortic valve is mildly calcified. There is a possible tricuspid aortic valve. Degenerative aortic valve, cannot exclude vegetation/thrombus/ma ss. There is mild thickening of mitral valve anterior leaflet. There is mild calcification of the mitral valve leaflets. There is a moderate pericardial effusion. 01/30/17 ECHOCARDIOGRAM REPORT: Study quality: Technically difficult. LV chamber is moderately dilated. LV wall thickness is decreased. There is moderate global hypokinesis. The estimated left ventricle ejection fraction is 40-45%( abnormal). Diastolic function is abnormal (grade 1). RV size is mildly dilated. There is a mild right ventricular systolic dysfunction. There is mild RV hypertrophy. There is trace tricuspid regurgitation. The ascending aorta is mildly dilated. ECHO: 09/28/15 BP 128/90. The study was technically difficult. Estimated LVEF 35-40%. The left ventricle is normal in size. Left ventricular systolic function is moderately reduced. There is moderate right ventricular hypertrophy. The right ventricular systolic function is mildly reduced. There is trace tricuspid regurgitation. Trace pulmonic valvular regurgitation. Grade I diastolic dysfunction (abnormal relaxation). XR chest 09/29/2018 No acute cardiopulmonary abnormality New Curran MD [address] [place], [address], [facility] 11/30/2022 15:39:14 05/31/2023 text/html 11/30/21CC : Car diac follow up, dyspnea on [id number] years-old white woman with history of VSD s/p closure in 1977 (when she was 3 y/o), cardiomyopathy, PAL, and obesity presents today for 3 month follow-up. She was last seen in the clinic on 08/31/22, since then she has Depression, not very activeShe denies ER visits and hospitalizations since she was last seen. Denies chest pain.Denies shortness of breath at rest. Has mild dyspnea on exertion.No orthopnea. No PNDs.Denies heart palpitations.Denies dizziness. Denies syncope or near syncope.No ankle or leg edema.No major bleeding events.No reported side effects from medications. Taking medications as prescribed with no missed doses.Denies snoring, daytime somnolence and AM headache.*Last LDL was 159 done on 05/30/22.Pt takes rosuvastatin 10 mg. Previously:She has fatigue, and dyspnea on exertion, she is depressed as she lost her Reports palpitations once day when going to bed. Has not been exercising as much due to depression, followed by PCP. No other current complaints. Increase in depression, resulting in days where she does not get out of bed. Self increased her coreg to 6.25 with the increase of palpitations. Reports that her PCP has increased her antidepressant and her anxiety medication as well. 03/12/19 TDM-Negative stress test. Normal LV systolic function. LVEF 50%. Had ECHO done in 06/04/18 showed normal global systolic function , EF 60-65% Had negative stress test done in 09/28/15 with EF 49%. Has PAL and is on nightly CPAP therapy. Results from this visit, or from the past: 07-20-2019 CMP 07/20/2019 GL 82 BUN 13 CR 0.81 NA 144 K 4.1 CH 109 CO2 27 CA 8.9 AST 16 ALT 17 ALK PH 57lipid panel, blood [id number] 07/20/2019 CH 164 HDL 53 TR 118 LDL 90Attachment contains 2 Lab Results including: lipid panel, blood 02-16-2019 cholesterol 231,Triglycerides 139,HDL 54,LDL LIPID PANEL - cholesterol 231,Triglycerides 139,HDL 54,LDL [id number] 02/21/2018: creatine kinase : TC 215, HDL 45, LDL 141, Tri 159 02/21/18: TC 215, HDL 37, TG 127, LDL 3292306/17/17: Na 140 ,K 4.1 ,CL 105 ,CO2 25 ,GLU 88 ,BUN 15,CR 0.71,CK 25,TC 196,TG 148,HDL 45 ,LDL 121 ,AST 15,ALT 16 , VIT D : TC 194, HDL 43, TR 135, LDL 124.02/29/16 :SOD 142,K 4.2,CL 108,CO2 25,GLU 90,BUN 13,CR 0.79,AST 41,ALT 67,TC 204,TG 113,HDL 47,LDL 134,Vit D 27.5. EKG (07/10/20): NSR, RBBB, NSSTEKG, 01/21/20: Low voltage chest leads. muEKG, 01/21/20: Low voltage chest leads. mu treadmill nuclear stress test (PROC) 03-12-2019 03/12/19 TDM-Negative stress test. Normal LV systolic function. LVEF 50%. electrocardiogram 02-25-2019 EKG 02/25/19 possible incomplete RBBB,low voltage chest leads EKG 02/26/18: RBBB. Low voltage chest leadsEK08/14/17 Sinus rhythm. RBBB and right axis. Possible right ventricular hypertrophy - consider pulmonary disease. ABNORMAL.01/16/17 EKG: Sinus rhythm. Right bundle branch block and right axis- possible right ventricular hypertrophy- consider pulmonary disease. Abnormal.EK07/18/16 Sinus Rhythm -frequent ectopic ventricular beats. #VECS = 5. RBBB. Abnormal.EK01/18/16 Sinus rhythm. RBBB. Abnormal. 03/12/19 TDM-Negative stress test. Normal LV systolic function. LVEF 50%.CTA chest 09/30/2018 STRESS TEST: NUC: 09/28/15 Negative stress test. Normal LV systolic function. Abnormal stress test. Artifact noted. LVEF 49%. 06/04/18 ECHO: LV chamber size is normal. There is borderline LV hypertrophy. There is normal global systolic function and contractility. There is a segmental wall motion abnormality. The estimated left ventricle ejection fraction is 60-65%(normal). E to A mitral inflow reversal is consistent with possible diastolic dysfunction. The aortic valve is mildly calcified. There is a possible tricuspid aortic valve. Degenerative aortic valve, cannot exclude vegetation/thrombus/ma ss. There is mild thickening of mitral valve anterior leaflet. There is mild calcification of the mitral valve leaflets. There is a moderate pericardial effusion. 01/30/17 ECHOCARDIOGRAM REPORT: Study quality: Technically difficult. LV chamber is moderately dilated. LV wall thickness is decreased. There is moderate global hypokinesis. The estimated left ventricle ejection fraction is 40-45%( abnormal). Diastolic function is abnormal (grade 1). RV size is mildly dilated. There is a mild right ventricular systolic dysfunction. There is mild RV hypertrophy. There is trace tricuspid regurgitation. The ascending aorta is mildly dilated. ECHO: 09/28/15 BP 128/90. The study was technically difficult. Estimated LVEF 35-40%. The left ventricle is normal in size. Left ventricular systolic function is moderately reduced. There is moderate right ventricular hypertrophy. The right ventricular systolic function is mildly reduced. There is trace tricuspid regurgitation. Trace pulmonic valvular regurgitation. Grade I diastolic dysfunction (abnormal relaxation). XR chest 09/29/2018 No acute cardiopulmonary abnormality New Curran MD [address] [place], [address], [facility] 05/31/2023 17:01:05 12/05/2023 text/html 12/05/23CC : Car dia follow up, [id number] years-old white woman with history of VSD s/p closure in 1977 (when she was 3 y/o), cardiomyopathy, PAL, and obesity presents today for 6 month follow-up with ECHO results. She was last seen in the clinic on 05/31/23, since then she had Dizziness, Had ECHO on 07/06/23 showed LV chamber size is normal,LVEF 60-65%,aortic valve is not well visualized,the aortic valve is mildly calcified,there is mild thickening of the mitral valve anterior leaflet.She denies ER visits and hospitalizations since she was last seen. Today reports:no ccDenies chest pain.Denies shortness of breath at rest. Has mild dyspnea on exertion.No orthopnea. No PNDs.Denies heart palpitations.Denies dizziness. Denies syncope or near syncope.No ankle or leg edema.No major bleeding events.No reported side effects from medications. Taking medications as prescribed with no missed doses.Denies snoring, daytime somnolence and AM headache.*Last LDL was 159 done on 05/30/22.Pt takes rosuvastatin 10 mg. *Had ECHO on 07/06/23 showed LV chamber size is normal,LVEF 60-65%,aortic valve is not well visualized,the aortic valve is mildly calcified,there is mild thickening of the mitral valve anterior leaflet. Previously:She has Depression, not very active She has fatigue, and dyspnea on exertion, she is depressed as she lost her Reports palpitations once day when going to bed. Has not been exercising as much due to depression, followed by PCP. No other current complaints. Increase in depression, resulting in days where she does not get out of bed. Self increased her coreg to 6.25 with the increase of palpitations. Reports that her PCP has increased her antidepressant and her anxiety medication as well. 03/12/19 TDM-Negative stress test. Normal LV systolic function. LVEF 50%. Has PAL and is on nightly CPAP therapy. Results from this visit, or from the past: 07-20-2019 CMP 07/20/2019 GL 82 BUN 13 CR 0.81 NA 144 K 4.1 CH 109 CO2 27 CA 8.9 AST 16 ALT 17 ALK PH 57lipid panel, blood [id number] 07/20/2019 CH 164 HDL 53 TR 118 LDL 90Attachment contains 2 Lab Results including: lipid panel, blood 02-16-2019 cholesterol 231,Triglycerides 139,HDL 54,LDL LIPID PANEL - cholesterol 231,Triglycerides 139,HDL 54,LDL [id number] 02/21/2018: creatine kinase : TC 215, HDL 45, LDL 141, Tri 159 02/21/18: TC 215, HDL 37, TG 127, LDL [id number]: Na 140 ,K 4.1 ,CL 105 ,CO2 25 ,GLU 88 ,BUN 15,CR 0.71,CK 25,TC 196,TG 148,HDL 45 ,LDL 121 ,AST 15,ALT 16 , VIT D : TC 194, HDL 43, TR 135, LDL 124.02/29/16 :SOD 142,K 4.2,CL 108,CO2 25,GLU 90,BUN 13,CR 0.79,AST 41,ALT 67,TC 204,TG 113,HDL 47,LDL 134,Vit D 27.5. EKG (07/10/20): NSR, RBBB, NSSTEKG, 01/21/20: Low voltage chest leads. muEKG, 01/21/20: Low voltage chest leads. mu treadmill nuclear stress test (PROC) 03-12-2019 03/12/19 TDM-Negative stress test. Normal LV systolic function. LVEF 50%. electrocardiogram 02-25-2019 EKG 02/25/19 possible incomplete RBBB,low voltage chest leads EKG 02/26/18: RBBB. Low voltage chest leadsEK08/14/17 Sinus rhythm. RBBB and right axis. Possible right ventricular hypertrophy - consider pulmonary disease. ABNORMAL.01/16/17 EKG: Sinus rhythm. Right bundle branch block and right axis- possible right ventricular hypertrophy- consider pulmonary disease. Abnormal.EK07/18/16 Sinus Rhythm -frequent ectopic ventricular beats. #VECS = 5. RBBB. Abnormal.EK01/18/16 Sinus rhythm. RBBB. Abnormal. 03/12/19 TDM-Negative stress test. Normal LV systolic function. LVEF 50%.CTA chest 09/30/2018 STRESS TEST: NUC: 09/28/15 Negative stress test. Normal LV systolic function. Abnormal stress test. Artifact noted. LVEF 49%. 06/04/18 ECHO: LV chamber size is normal. There is borderline LV hypertrophy. There is normal global systolic function and contractility. There is a segmental wall motion abnormality. The estimated left ventricle ejection fraction is 60-65%(normal). E to A mitral inflow reversal is consistent with possible diastolic dysfunction. The aortic valve is mildly calcified. There is a possible tricuspid aortic valve. Degenerative aortic valve, cannot exclude vegetation/thrombus/ma ss. There is mild thickening of mitral valve anterior leaflet. There is mild calcification of the mitral valve leaflets. There is a moderate pericardial effusion. 01/30/17 ECHOCARDIOGRAM REPORT: Study quality: Technically difficult. LV chamber is moderately dilated. LV wall thickness is decreased. There is moderate global hypokinesis. The estimated left ventricle ejection fraction is 40-45%( abnormal). Diastolic function is abnormal (grade 1). RV size is mildly dilated. There is a mild right ventricular systolic dysfunction. There is mild RV hypertrophy. There is trace tricuspid regurgitation. The ascending aorta is mildly dilated. ECHO: 09/28/15 BP 128/90. The study was technically difficult. Estimated LVEF 35-40%. The left ventricle is normal in size. Left ventricular systolic function is moderately reduced. There is moderate right ventricular hypertrophy. The right ventricular systolic function is mildly reduced. There is trace tricuspid regurgitation. Trace pulmonic valvular regurgitation. Grade I diastolic dysfunction (abnormal relaxation). XR chest 09/29/2018 No acute cardiopulmonary abnormality New Curran MD [address] [place], [address], [facility] 12/05/2023 16:41:27 05/21/2024 text/html 05/21/24CC : Cardiac follow up49 years-old white woman with history of VSD s/p closure in 1977 (when she was 3 y/o), cardiomyopathy, PAL, and obesity presents today for 6 month follow-up. She was last seen in the clinic on 12/05/23, since then she is doing Ok, may be getting hysterectomyShe denies ER visits and hospitalizations since she was last seen. Today reports:Denies chest pain.Denies shortness of breath at rest. Has mild dyspnea on exertion.No orthopnea. No PNDs.Denies heart palpitations.Denies dizziness. Denies syncope or near syncope.No ankle or leg edema.No major bleeding events.No reported side effects from medications. Taking medications as prescribed with no missed doses.Denies snoring, daytime somnolence and AM headache.*Last LDL was 74 .Pt takes rosuvastatin 10 mg. Previously:*Had ECHO on 07/06/23 showed LV chamber size is normal,LVEF 60-65%,aortic valve is not well visualized,the aortic valve is mildly calcified,there is mild thickening of the mitral valve anterior leaflet. She has Depression, not very active She has fatigue, and dyspnea on exertion, she is depressed as she lost her Reports palpitations once day when going to bed. Has not been exercising as much due to depression, followed by PCP. No other current complaints. Increase in depression, resulting in days where she does not get out of bed. Self increased her coreg to 6.25 with the increase of palpitations. Reports that her PCP has increased her antidepressant and her anxiety medication as well. 03/12/19 TDM-Negative stress test. Normal LV systolic function. LVEF 50%. Has PAL and is on nightly CPAP therapy. Results from this visit, or from the past: 07-20-2019 CMP 07/20/2019 GL 82 BUN 13 CR 0.81 NA 144 K 4.1 CH 109 CO2 27 CA 8.9 AST 16 ALT 17 ALK PH 57lipid panel, blood [id number] 07/20/2019 CH 164 HDL 53 TR 118 LDL 90Attachment contains 2 Lab Results including: lipid panel, blood 02-16-2019 cholesterol 231,Triglycerides 139,HDL 54,LDL LIPID PANEL - cholesterol 231,Triglycerides 139,HDL 54,LDL [id number] 02/21/2018: creatine kinase : TC 215, HDL 45, LDL 141, Tri 159 02/21/18: TC 215, HDL 37, TG 127, LDL 0675006/17/17: Na 140 ,K 4.1 ,CL 105 ,CO2 25 ,GLU 88 ,BUN 15,CR 0.71,CK 25,TC 196,TG 148,HDL 45 ,LDL 121 ,AST 15,ALT 16 , VIT D : TC 194, HDL 43, TR 135, LDL 124.02/29/16 :SOD 142,K 4.2,CL 108,CO2 25,GLU 90,BUN 13,CR 0.79,AST 41,ALT 67,TC 204,TG 113,HDL 47,LDL 134,Vit D 27.5. EKG 07/10/20: NSR, RBBB, NSSTEKG 01/21/20: Low voltage chest leads. muEKG 02/25/19 possible incomplete RBBB,low voltage chest leads EKG 02/26/18: RBBB. Low voltage chest leads EKG 08/14/17: Sinus rhythm. RBBB and right axis. Possible right ventricular hypertrophy - consider pulmonary disease. ABNORMAL.EKG 01/16/17: Sinus rhythm. Right bundle branch block and right axis- possible right ventricular hypertrophy- consider pulmonary disease. Abnormal.EKG 07/18/16: Sinus Rhythm -frequent ectopic ventricular beats. #VECS = 5. RBBB. Abnormal.EKG 01/18/16: Sinus rhythm. RBBB. Abnormal. STRESS TEST NUC: 03/12/19 TDM-Negative stress test. Normal LV systolic function. LVEF 50%.STRESS TEST NUC: 09/28/15 Negative stress test. Normal LV systolic function. Abnormal stress test. Artifact noted. LVEF 49%. ECHO 07/06/23: LV chamber size is normal,LVEF 60-65%,aortic valve is not well visualized,the aortic valve is mildly calcified,there is mild thickening of the mitral valve anterior leaflet.ECHO 01/18/22: Mildly dilated LV with normal LV wall thickness and normal LV ejection fraction (LVEF 63%) but reduced strain (GLS - 15.3%). 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 Grade I diastolic dysfunction. Normal AV. Mild MR. Normal LA size. Mildly dilated and mildly hypokinetic RV. Mild TR. PASP 30 mmHg. Normal IVC/RAP. Normal aorta. ECHO 06/02/21: LA is normal. Mild RV cavity enlargement. LV cavity size is mildly dilated. Normal LV wall thickness. Low normal LVSF. EF 59%. Abnormal septal motion - may be due to IVCD. Reduced global LV myocardial longitudinal function and strain pattern. Mild MR, TR. Normal inferior vena cava. Normal est PASP. No aortic coarctation noted. 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 Reduced image quality. Grossly normal LV and RV size and systolic function. No significant valvular abnormalities. Evidence of VSD patch repair with no residual VSD noted. Normal IVC and aorta. No increased gradient across ascending or descending aorta. ECHO 06/04/18: LV chamber size is normal. There is borderline LV hypertrophy. There is normal global systolic function and contractility. There is a segmental wall motion abnormality. The estimated left ventricle ejection fraction is 60-65%(normal). E to A mitral inflow reversal is consistent with possible diastolic dysfunction. The aortic valve is mildly calcified. There is a possible tricuspid aortic valve. Degenerative aortic valve, cannot exclude vegetation/thrombus/ma ss. There is mild thickening of mitral valve anterior leaflet. There is mild calcification of the mitral valve leaflets. There is a moderate pericardial effusion. ECHO 01/30/17: Study quality: Technically difficult. LV chamber is moderately dilated. LV wall thickness is decreased. There is moderate global hypokinesis. The estimated left ventricle ejection fraction is 40-45%( abnormal). Diastolic function is abnormal (grade 1). RV size is mildly dilated. There is a mild right ventricular systolic dysfunction. There is mild RV hypertrophy. There is trace tricuspid regurgitation. The ascending aorta is mildly dilated. ECHO 09/28/15: BP 128/90. The study was technically difficult. Estimated LVEF 35-40%. The left ventricle is normal in size. Left ventricular systolic function is moderately reduced. There is moderate right ventricular hypertrophy. The right ventricular systolic function is mildly reduced. There is trace tricuspid regurgitation. Trace pulmonic valvular regurgitation. Grade I diastolic dysfunction (abnormal relaxation). CTA chest 09/30/2018: No PE or other acute abnormality identified. 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 No significant mass effect. XR chest 09/29/2018 No acute cardiopulmonary abnormality [place], [place] - [facility] 09/12/2024 12:37:53 09/12/2024 text/html 09/12/24CC : Cardiac follow up49 years-old white woman with history of VSD s/p closure in 1977 (when she was 3 y/o), cardiomyopathy, PAL, and obesity presents today for 6 month follow-up. She was last seen in the clinic on 05/01/24, since then she has fatigueShe denies ER visits and hospitalizations since she was last seen. Today reports:light headedness / when getting up from sitting pt has spells of feeling like she is going to pass out.Denies chest pain.Denies shortness of breath at rest. Has mild dyspnea on exertion.No orthopnea. No PNDs.Denies heart palpitations.Denies dizziness. Denies syncope or near syncope.No ankle or leg edema.No major bleeding events.No reported side effects from medications. Taking medications as prescribed with no missed doses.Denies snoring, daytime somnolence and AM headache.*Last LDL was 74 done on 02/10/23.Pt takes rosuvastatin 10 mg. Previously:*Had ECHO on 07/06/23 showed LV chamber size is normal,LVEF 60-65%,aortic valve is not well visualized,the aortic valve is mildly calcified,there is mild thickening of the mitral valve anterior leaflet. 03/12/19 TDM-Negative stress test. Normal LV systolic function. LVEF 50%. Has PAL and is on nightly CPAP therapy. Results from this visit, or from the past: 07-20-2019 CMP 07/20/2019 GL 82 BUN 13 CR 0.81 NA 144 K 4.1 CH 109 CO2 27 CA 8.9 AST 16 ALT 17 ALK PH 57lipid panel, blood [id number] 07/20/2019 CH 164 HDL 53 TR 118 LDL 90Attachment contains 2 Lab Results including: lipid panel, blood 02-16-2019 cholesterol 231,Triglycerides 139,HDL 54,LDL LIPID PANEL - cholesterol 231,Triglycerides 139,HDL 54,LDL [id number] 02/21/2018: creatine kinase : TC 215, HDL 45, LDL 141, Tri 159 02/21/18: TC 215, HDL 37, TG 127, LDL 5283306/17/17: Na 140 ,K 4.1 ,CL 105 ,CO2 25 ,GLU 88 ,BUN 15,CR 0.71,CK 25,TC 196,TG 148,HDL 45 ,LDL 121 ,AST 15,ALT 16 , VIT D : TC 194, HDL 43, TR 135, LDL 124.02/29/16 :SOD 142,K 4.2,CL 108,CO2 25,GLU 90,BUN 13,CR 0.79,AST 41,ALT 67,TC 204,TG 113,HDL 47,LDL 134,Vit D 27.5. EKG (07/10/20): NSR, RBBB, NSSTEKG, 01/21/20: Low voltage chest leads. muEKG, 01/21/20: Low voltage chest leads. mu treadmill nuclear stress test (PROC) 03-12-2019 03/12/19 TDM-Negative stress test. Normal LV systolic function. LVEF 50%. electrocardiogram 02-25-2019 EKG 02/25/19 possible incomplete RBBB,low voltage chest leads EKG 02/26/18: RBBB. Low voltage chest leadsEK08/14/17 Sinus rhythm. RBBB and right axis. Possible right ventricular hypertrophy - consider pulmonary disease. ABNORMAL.01/16/17 EKG: Sinus rhythm. Right bundle branch block and right axis- possible right ventricular hypertrophy- consider pulmonary disease. Abnormal.EK07/18/16 Sinus Rhythm -frequent ectopic ventricular beats. #VECS = 5. RBBB. Abnormal.EK01/18/16 Sinus rhythm. RBBB. Abnormal. 03/12/19 TDM-Negative stress test. Normal LV systolic function. LVEF 50%.CTA chest 09/30/2018 STRESS TEST: NUC: 09/28/15 Negative stress test. Normal LV systolic function. Abnormal stress test. Artifact noted. LVEF 49%. 06/04/18 ECHO: LV chamber size is normal. There is borderline LV hypertrophy. There is normal global systolic function and contractility. There is a segmental wall motion abnormality. The estimated left ventricle ejection fraction is 60-65%(normal). E to A mitral inflow reversal is consistent with possible diastolic dysfunction. The aortic valve is mildly calcified. There is a possible tricuspid aortic valve. Degenerative aortic valve, cannot exclude vegetation/thrombus/ma ss. There is mild thickening of mitral valve anterior leaflet. There is mild calcification of the mitral valve leaflets. There is a moderate pericardial effusion. 01/30/17 ECHOCARDIOGRAM REPORT: Study quality: Technically difficult. LV chamber is moderately dilated. LV wall thickness is decreased. There is moderate global hypokinesis. The estimated left ventricle ejection fraction is 40-45%( abnormal). Diastolic function is abnormal (grade 1). RV size is mildly dilated. There is a mild right ventricular systolic dysfunction. There is mild RV hypertrophy. There is trace tricuspid regurgitation. The ascending aorta is mildly dilated. ECHO: 09/28/15 BP 128/90. The study was technically difficult. Estimated LVEF 35-40%. The left ventricle is normal in size. Left ventricular systolic function is moderately reduced. There is moderate right ventricular hypertrophy. The right ventricular systolic function is mildly reduced. There is trace tricuspid regurgitation. Trace pulmonic valvular regurgitation. Grade I diastolic dysfunction (abnormal relaxation). XR chest 09/29/2018 No acute cardiopulmonary abnormality New Curran MD [address] [place], [address], [place] [facility] 09/12/2024 18:44:57 OBGyn Episode No OBEpisode recorded.
--- OUTSIDE RECORDS SUMMARY | 2025-01-31 02:10 | XMS_ITS | Clinical Summary ---
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 Active quinapriL (ACCUPRIL) 10 mg tablet Take 10 mg by mouth daily after supper. Active carvediloL (COREG) 3.125 mg tablet Take 3.125 mg by mouth 2 times daily with meals. Active sertraline (ZOLOFT) 50 mg tablet Take by mouth daily. Active BUPROPION HCL ORAL Take 150 mg by mouth daily. Active rosuvastatin (CRESTOR) 10 mg tablet Take 10 mg by mouth daily at bedtime. Active valACYclovir (VALTREX) 1 gram tablet Take 1,000 mg by mouth 1 time daily as needed. Active EPINEPHrine (Auvi-Q) 0.3 mg/0.3 mL Auto-Injector Inject 0.3 mg by intramuscular injection 1 time daily as needed for Anaphylaxis. Active loratadine (CLARITIN) 10 mg tablet Take 10 mg by mouth 1 time daily as needed for Allergies. Active famotidine (PEPCID) 20 mg tablet Take 20 mg by mouth 1 time daily as needed. Active Biotin 2,500 mcg Capsule Take by mouth daily. Active calcium carbonate/daisy min D3 (CALCIUM 500 + D ORAL) Take 500 mg by mouth daily. Active PNV no.153/FA/om3/ dha/epa/fish ( GUMMIES ORAL) Take by mouth. A ctive inulin (FIBER GUMMIES ORAL) Take 2 Grams by mouth daily. Active rgsmf-7-rnj-ep a-dpa-fish oil 1,050-1,200 mg Capsule Take by mouth. Activ e COQ10, LIPOSOMAL UBIQUINOL, ORAL Take 400 mg by mouth daily. Active ascorbic acid (VITAMIN C) 500 mg Tablet, Chewable Take 500 mg by mouth. 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 Gender Identity Not on file Sexual Orientation Not on file Last Filed Vital Signs Vital Sign Reading Time Taken Comments Blood Pressure 139/80 11/12/2020 6:52 PM REGRIND MILL OPERATOR Pulse 77 11/12/2020 6:52 PM REGRIND MILL OPERATOR Temperature 36.2 C (97.2 F) 11/12/2020 6:52 PM REGRIND MILL OPERATOR Respiratory Rate 20 11/12/2020 6:52 PM REGRIND MILL OPERATOR Oxygen Saturation 97% 11/12/2020 6:52 PM REGRIND MILL OPERATOR Inhaled Oxygen Concentration - - Weight 103.3 kg (227 lb 11.2 oz) 11/12/2020 1:40 PM REGRIND MILL OPERATOR Height 162.6 cm (5' 4 ) 11/12/2020 1:40 PM REGRIND MILL OPERATOR Body Mass Index 39.08 11/12/2020 1:40 PM REGRIND MILL OPERATOR Plan of Treatment Health Maintenance Due Date Last Done Comments DTAP/TDAP/TD VACCINES (1 - Tdap) 02/12/1995 HEPATITIS B VACCINES (1 of 3 - 19+ 3-dose series) 02/12/1995 CERVICAL CANCER SCREENING 02/12/2006 BREAST CANCER SCREENING 2016 COLORECTAL SCREENING 02/12/2021 Colorectal Cancer Screening 02/12/2021 FIT-DNA Q 3 years 02/12/2021 FIT/FOBT Q 1 year 02/12/2021 Flex Sig/CT Colonography Q 5 years 02/12/2021 INFLUENZA VACCINE (#1) 2024 1, 07/18/2020, 07/24/2019, Additional history exists Insurance [facility] [address] ACCESS/TRUE BLUE PPO Care Teams Continuous Miner Operator Helper Relationship Specialty Start Date End Date Saad Soria MD PCP - General Family Practice 11/05/20
--- OUTSIDE RECORDS SUMMARY | 2025-01-31 02:10 | XMS_ITS | Clinical Summary ---
Author Organization [facility] Address [address] [place] [address] Care Team Providers Care Bridge Construction Inspector Name Role Phone Margie Newton MD Primary Care Provider [phone] Allergies No known active allergies Medications aspirin EC 81 MG tablet Take 1 tablet (81 mg total) by mouth daily. Active famotidine 20 MG tablet Take 1 tablet (20 mg total) by mouth daily as needed. Active nystatin powder 11/30/19 21 Active [place]-3 Fatty Acids (OMEGA-3 2100) 1050 MG Cap Take by mouth daily. Active carvedilol (COREG) 25 MG tablet Take 1 tablet (25 mg total) by mouth 2 (two) times a day. 11/08/20 21 Active rosuvastatin (CRESTOR) 10 MG tabletIndications:H yperlipidemia, unspecified hyperlipidemia type Take 1 tablet (10 mg total) by mouth nightly at bedtime. 90 tablet 1 07/11/20 22 Active valACYclovir (VALTREX) 500 MG tablet Take 1 tablet (500 mg total) by mouth 2 (two) times daily as needed. 08/18/20 22 Active ramipril (ALTACE) 5 MG capsule Take 1 capsule (5 mg total) by mouth daily. 03/23/20 23 Active buPROPion XL (WELLBUTRIN XL) 150 MG 24 hr tablet Take 1 tablet (150 mg total) by mouth every morning. Active oxybutynin XL (DITROPAN-XL) 10 MG 24 hr tablet Take 1 tablet (10 mg total) by mouth daily. 08/17/20 23 Active Levocetirizine Dihydrochloride (XYZAL ALLERGY 24HR OR) Active Cholecalciferol 50 MCG (2000 UT) Cap Taking once daily Active Azelastine-Fluticas one 137-50 MCG/ACT Suspension SPRAY 1 SPRAY INTRANASALLY TWICE A DAY FOR 30 DAYS 04/25/20 24 Active vortioxetine (TRINTELLIX) 10 MG tablet Take 1 tablet every day by oral route. Active Biotin 2.5 MG Tab daily. Ac tive [facility] Fiber Gummies 2 g Chew Tab Active miconazole (MICOTIN) 2 % cream Apply topically 2 (two) times daily. APPLY TO AFFECTED AREA Active semaglutide-weight management (WEGOVY) 0.25 mg/dose injection (PEN)Indications:We ight Loss Inject 0.25 mg into the skin once a week. Indications: Weight Loss 2 mL 10/11/20 24 Active albuterol sulfate HFA 108 (90 Base) MCG/ACT inhaler Inhale 2 puffs into the lungs every 4 (four) hours as needed for Shortness of breath. As needed. 12/30/19 25 Active ZEPBOUND 2.5 MG/0.5ML injection Inject 2.5 mg into the skin once a week. 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 I have ordered a vitamin-D, vitamin B12, and thyroid level. Nasal obstruction 02/01/2023 Overview (02/16/2023): Last Assessment & Plan: I think her nasal obstruction is probably due to combination of allergies and sinusitis. I recommended that she continue with her current allergy meds including nasal spray. Also recommended she stay with her immunotherapy. Chronic pansinusitis 02/01/2023 Overview (02/16/2023): Last Assessment & Plan: I recommended a another course of antibiotics with a steroid for her sinusitis symptoms. Prescribing Augmentin for 14 days and a Medrol Dosepak. I would like to see her back in about 6 weeks. If she continues with symptoms I may be recommending a sinus CT scan. She understands that. 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 Her DME is [employer]. Obstructive sleep apnea syndrome 12/17/2016 Overview (03/10/2021): Last Assessment & Plan: Patient continue to wear her CPAP in auto titrating range 8-10 cm of water pressure while sleeping. She is currently getting her supplies online but would like him sent to a DME company. Patient states that she has finally found a mask that she likes. She is going to call to [facility] to see if they supply the mask that she currently has. She will call us back to let us know if she would like orders for supplies sent to them. Cardiomyopathy ([facility]) 07/15/2016 Overview (09/07/2023): Secondary cardiomyopathy Hyperlipidemia 07/15/2016 Benign hypertension 07/15/2016 Anxiety 07/15/2016 Dyspnea on exertion 07/15/2016 Hemorrhoids 07/15/2016 History of depression 07/15/2016 Migraine 07/15/2016 Obesity 07/15/2016 Pneumonia 07/15/2016 Cardiomyopathy ([facility]) 07/15/2016 Gastroesophageal reflux disease 07/15/2016 Asthma ([facility]) 07/15/2016 Palpitations 04/12/2014 Overview (10/19/2020): PALPITATIONS Premature atrial contraction 04/12/2014 Overview (10/19/2020): ATRIAL PREMATURE BEATS Ventricular premature beats 04/12/2014 Overview (10/19/2020): PVCs Primary cardiomyopathy ([facility]) 014 Overview (10/19/2020): IDIOPATHIC CARDIOMYOPATHY Primary cardiomyopathy ([facility]) 014 Overview (03/10/2021): IDIOPATHIC CARDIOMYOPATHY Palpitations 04/12/2014 Overview (03/10/2021): PALPITATIONS Premature atrial contraction 04/12/2014 Overview (03/10/2021): ATRIAL PREMATURE BEATS Ventricular premature beats 04/12/2014 Overview (03/10/2021): PVCs Cardiomyopathy ([facility]) 01/26/2000 Encounters Date Type Department Care Team Description 01/20/2025 9:00 AM DIRECTOR PRESALES Office Visit [facility] - [address] [place] [address] Benigno Arora, INSPECTOR GOLF [employer]ALL New Patient (Left distal pinky finger injury 01/14/25) 01/20/2025 Travel 01/16/2025 2:40 PM DIRECTOR PRESALES Office Visit [facility] Family Medicine - [address] [address] Margie Newton MD Obesity (2 mo follow up ); Other (Follow up Other constipation : chronic condition. Pt reports no recent constipation/ /-RUQ pain - pt states that she had a visit with surgery but wasn't in pain so surgery wasn't done. ); Hyperlipidemia; ER F/U (Pt went to [facility] in [place] on 01/14/2025 pt has X-rays. Pt states they siad it wasn't broken. Pt jammed left fifth finger. //-12/30/2024 Pt went to [facility] for Cold SX , tested neg for covid/strep/flu. Pt still has dry cough. ); Bladder Problem (Pt has been having problems with bladder. Pt getting surgery on January 30. Pt states she has stress incontinence. ) 01/16/2025 Travel 12/28/2024 8:08 AM DIRECTOR PRESALES - 12/28/2024 11:59 PM DIRECTOR PRESALES Hospital Encounter [facility] [address] [place] [address] Bety Patiño MD Discharge Disposition: Home or Self Care (Routine Discharge) 12/28/2024 Travel 12/25/2024 Travel 12/16/2024 11:32 AM DIRECTOR PRESALES - 12/16/2024 11:59 PM DIRECTOR PRESALES Hospital Encounter [facility] [place] [address] Bety Patiño MD Discharge Disposition: Home or Self Care (Routine Discharge) 12/16/2024 Travel 12/12/2024 Scan HEALTH INFO SRVCS Scanned, [facility] 11/18/2024 Telephone [facility] Medical [facility] Family Medicine [address] [address] Margie Newton MD Prior Authorization from Last 3 Months Immunizations Name Administration Dates Next Due Afluria 36 MONTHS+ (Prefille d Syringe IIV4) 07/24/2019 FLUCELVAX (ccIIV3, TRIVALENT, 0.5mL) 09/03/2024 Fluzone 6 Months+ Quad (0.5 mL Prefilled Syringe) 07/18/2020 Influenza (Fluvirin) 08/30/2015 Influenza (Generic) 08/30/2015 Influenza Adult (Generic) 09/23/2022,06/2021,09/20/2020,2018,07/29/2018,08/28/2017,10/23/2016 PFIZER COVID-19 (ORIGINAL FORMULATION, PURPLE CAP) mRNA, LNP-S, PF, 30 MCG/0.3 ML DOSE 08/31/2021,02/08/2021,01/18/2021 Pneumococcal (Pneumovax 23) 08/28/2017 Pneumococcal (Prevnar 20) 10/11/2024 Tdap (Adacel) 10/11/2024 Family History Medical History Relation Comments Cancer Father Kidney Stones Father Alcohol Abuse Mother Arthritis Mother Depression Mother Hypertension Mother Parkinson's Disease Mother Alcohol Abuse Sister Depression Sister Relation Status Comments Father Alive Mother Alive Sister Social History Tobacco Use Types Packs/Day Years Used Date Smoking Tobacco: Never Passive Smoke Exposure: Never Smokeless Tobacco: Never Tobacco Cessation:Counseling Given: No Alcohol Use Standard Drinks/Week Comments Not Currently 1.7 (1 standard drink = 0.6 oz p ure alcohol) AUDIT-C Answer Date Recorded Frequency of Alcohol Consumption Never 12/16/2019 Average Number of Drinks Not on file 020 Frequency of Binge Drinking Not on file 11/28 PHQ-2 Answer Date Recorded Patient Health Questionnaire-2 Score 0 01/16/2025 Comments No Sex and Gender Information Value Date Recorded Sex Assigned at Female 12/13/2024 4:26 PM DIRECTOR PRESALES Legal Sex Female 8:27 PM CDT Gender Identity Female 12/15/2021 5:23 AM DIRECTOR PRESALES Sexual Orientation Straight 12/15/2021 5: 23 AM DIRECTOR PRESALES Last Filed Vital Signs Vital Sign Reading Time Taken Comments Blood Pressure 122/76 01/20/2025 9:05 AM DIRECTOR PRESALES Pulse 62 01/20/2025 9:05 AM DIRECTOR PRESALES Temperature 36.2 C (97.2 F) 01/20/2025 9:05 AM DIRECTOR PRESALES Respiratory Rate 17 01/16/2025 2:45 PM DIRECTOR PRESALES Oxygen Saturation 97% 01/16/2025 2:45 PM DIRECTOR PRESALES Inhaled Oxygen Concentration - - Weight 114.3 kg (252 lb) 01/20/2025 9:05 AM DIRECTOR PRESALES Height 162.6 cm (5' 4 ) 01/20/2025 9:05 AM DIRECTOR PRESALES Body Mass Index 43.26 01/20/2025 9:05 AM DIRECTOR PRESALES Plan of Treatment Upcoming Encounters Date Type Department Care Team (Late st Contact Info) Description 04/03/2025 12:30 PM CDT Office Visit [facility] [address] [place] [address] Deisi Haji MD [address] [facility] [address] [place] [address] 05/16/2025 3:40 PM CDT Office Visit [facility] Family Medicine - [place] [address] [place] [address] Margie Newton MD [address] [place], [place] [id number] Health Maintenance Due Date Last Done Comments Colorectal Cancer Screening Colonoscopy (10 Years) 1976 Annual Physical 02/12/1979 Hepatitis C 02/12/1994 Hepatitis B Vaccines (1 of 3 - 19+ 3-dose series) 02/12/1995 Cervical Cancer Screening Pap Smear (Age 30 to 64) Every 3 Years 09/26/2026 09/26/2023, 08/17/2022 Mammogram Screening 01/11/2027 01/11/2025, 12/16/2023, 12/16/2023, Additional history exists Cervical Cancer Screening Pap with HPV Testing (Age 30 to 64) Every 5 Years 08/17/2027 Cervical Cancer Screening with HPV 08/17/2027 DTaP, Tdap and Td Vaccines (2 - Td or Tdap) 10/11/2034 10/11/2024 COVID-19 Vaccine Completed 09/03/2024, , 09/23/2022, Additional history exists Influenza Adult Completed 09/03/2024, 08/28, 08/04/2021, Additional history exists Pneumococcal Vaccine: Pediatrics (0 to 5 Years) and At-Risk Patients (6 to 64 Years) Completed 10/11/2024, 08/28/2017 PHQ-2 (Physician [place]) Completed 01/16/2025 Meningococcal B Vaccine Aged Out No l onger eligible based on patient's age to complete this topic Meningococcal Vaccine Aged Out No em brad eligible based on patient's age to complete this topic RSV Immunizations Under 20 Months Aged Out No longer eligible based on patient's age to complete this topic Procedures Procedure Name Priority Date/Time Associated Diagnosis Comments CT ABD+PEL WWO CON Routine 12/28/2024 9: 03 AM DIRECTOR PRESALES Angiomyolipoma of right kidney US RETROPERITONEAL COMP Routine 12/16/19 1:14 PM DIRECTOR PRESALES Angiomyolipoma of right kidney MAMMOGRAM GENERIC (SCAN ORDER) 12/16/2023 from Last 3 Months or Most Recently Relevant to Health Maintenance Results * CT ABD+PEL WWO CON (12/28/2024 9:03 AM DIRECTOR PRESALES) Anatomical Region Laterality Modality Abdomen Computed Tomogra phy 01/05/2025 12:5 1 PM DIRECTOR PRESALES Impressions 01/05/2025 1:02 PM DIRECTOR PRESALES Impression: 1. Redemonstrated 1.4 cm fat density right renal mass, again favored to represent angiomyolipoma. This appears similar to prior CT imaging from August 2021. 2. A subcentimeter hypodensity is seen within the left kidney as described, correlating with recent ultrasound. This finding is technically too small to characterize with CT technique but may represent a small cyst. 3. A small focus of gas is noted within the urinary bladder, nonspecific. Correlate with recent bladder instrumentation. 4. Uncomplicated cholelithiasis. Ordered By: BETY PATIÑO Interpreted By: Brad Horn MD, 01/05/2025 12:51 PM Narrative 01/05/2025 1:02 PM DIRECTOR PRESALES [address] [place] [address] Examination: CT ABD+PEL WWO CON Clinical Information: ANGIOMYOLIPOMA OF RIGHT KIDNEY Comparison:CT 09/13/2021. Ultrasound 12/16/2024. Technique: IV contrast: 100 mL Isovue 370. Oral contrast: None. Technical comments: Standard urogram technique. Dose reduction: This CT exam was performed using one or more of the following dose reduction techniques: Automated exposure control, adjustment of the mA and/or kV according to patient size, and/or use of iterative reconstruction technique. Findings: LOWER CHEST Heart is normal in size. Left basilar atelectasis. No pleural or pericardial effusions. UPPER ABDOMEN Liver and bile ducts: No focal liver lesion. Portal vein and hepatic veins are patent. No biliary dilatation. Gallbladder: A stone is noted within the gallbladder. No gallbladder wall thickening or pericholecystic fluid. Pancreas: Unremarkable. Spleen: Normal. RETROPERITONEUM Adrenals: Normal. Kidneys: No nephrolithiasis, ureteral stone or hydronephrosis. Kidneys enhance symmetrically and demonstrate no suspicious enhancing mass. Redemonstrated fat density cortically based mass within the posterior cortex of the right lower pole measuring 1.4 cm, similar to prior CT from August 2021. This is again favored to represent an angiomyolipoma. The subcentimeter hypodensity is seen in the subcapsular upper pole of the left kidney (series 9 image 49), likely correlating with a probable cyst on previous ultrasound imaging. This finding is technically too small to characterize with CT technique but may represent a small cyst. The opacified bilateral renal collecting systems and ureters demonstrate no distinct urothelial abnormality. Note, the distal bilateral ureters are poorly opacified and not well assessed. Lymph nodes: No lymphadenopathy in the abdomen or pelvis. BOWEL AND PERITONEUM Bowel: Postsurgical changes of the stomach. No bowel obstruction or inflammatory process. The appendix appears normal. Free air or fluid: None. VASCULATURE The abdominal aorta is normal in caliber. PELVIS A small focus of gas is seen dependently within the urinary bladder, nonspecific. No gallbladder wall thickening or distinct mass lesion identified. BONES/SOFT TISSUES No significant lesion. Procedure Note Brad Horn MD - 01/05/[address] [address] Examination: CT ABD+PEL WWO CON Clinical Information: ANGIOMYOLIPOMA OF RIGHT KIDNEY Comparison:CT 09/13/2021. Ultrasound 12/16/2024. Technique: IV contrast: 100 mL Isovue 370. Oral contrast: None. Technical comments: Standard urogram technique. Dose reduction: This CT exam was performed using one or more of thefollowing dose reduction techniques: Automated exposure control,adjustment of the mA and/or kV according to patient size, and/or use ofiterative reconstruction technique. Findings: LOWER CHEST Heart is normal in size. Left basilar atelectasis. No pleural orpericardial effusions. UPPER ABDOMEN Liver and bile ducts: No focal liver lesion. Portal vein and hepaticveins are patent. No biliary dilatation. Gallbladder: A stone is noted within the gallbladder. No gallbladder wallthickening or pericholecystic fluid. Pancreas: Unremarkable. Spleen: Normal. RETROPERITONEUM Adrenals: Normal. Kidneys: No nephrolithiasis, ureteral stone or hydronephrosis. Kidneysenhance symmetrically and demonstrate no suspicious enhancing mass.Redemonstrated fat density cortically based mass within the posteriorcortex of the right lower pole measuring 1.4 cm[facility] This is again favored to represent an angiomyolipoma. Thesubcentimeter hypodensity is seen in the subcapsular upper pole of theleft kidney (series 9 image 49), likely correlating with a probable cyston previous ultrasound imaging. This finding is technically too small tocharacterize with CT technique but may represent a small cyst. Theopacified bilateral renal collecting systems and ureters demonstrate nodistinct urothelial abnormality. Note, the distal bilateral ureters arepoorly opacified and not well assessed. Lymph nodes: No lymphadenopathy in the abdomen or pelvis. BOWEL AND PERITONEUM Bowel: Postsurgical changes of the stomach. No bowel obstruction orinflammatory process. The appendix appears normal. Free air or fluid: None. VASCULATURE The abdominal aorta is normal in caliber. PELVIS A small focus of gas is seen dependently within the urinary bladder,nonspecific. No gallbladder wall thickening or distinct mass lesionidentified. BONES/SOFT TISSUES No significant lesion. Impression: 1. Redemonstrated 1.4 cm fat density right renal mass, again favored torepresent angiomyolipoma. [facility] 2. A subcentimeter hypodensity is seen within the left kidney asdescribed, correlating with recent ultrasound. This finding is technicallytoo small to characterize with CT technique but may represent a smallcyst. 3. A small focus of gas is noted within the urinary bladder, nonspecific.Correlate with recent bladder instrumentation. 4. Uncomplicated cholelithiasis. Ordered By: BETY PATIÑO Interpreted By: Brad Horn MD, 01/05/2025 12:51 PM us Bety Patiño MD CT Final Result * US RETROPERITONEAL COMP (12/16/2024 1:14 PM DIRECTOR PRESALES) Anatomical Region Laterality Modality Abdomen Ultrasound 12/16/2024 1:35 PM DIRECTOR PRESALES Impressions 12/16/2024 1:55 PM DIRECTOR PRESALES IMPRESSION: 1. 1.6 cm hyperechoic lesion in the mid to lower pole right kidney near the margin of the central echo complex likely corresponding to previously identified angiomyolipoma on the 2020 CT studies. This lesion has mildly increased size since 2020. 2. 6.5 mm hyperechoic lesion in the mid to upper pole right renal cortex with no correlate on the 2020 CT studies. 3. 9.7 mm hypoechoic lesion in the mid to upper pole left kidney. 4. Recommend CT abdomen without and with contrast (renal lesion protocol) to evaluate the bilateral mid to upper pole renal lesions. The previous identified right renal angiomyolipoma would also be reevaluated. Ordered By: BETY PATIÑO Interpreted By: Sonny Monet, 12/16/2024 1:35 PM Narrative 12/16/2024 1:55 PM DIRECTOR PRESALES [facility] [address] [place], [place] [address] IMAGING STUDIES: US RETROPERITONEAL COMP DATE: 12/16/2024 12:24 PM HISTORY: ANGIOMYOLIPOMA OF RIGHT KIDNEY 49-year-old female. Preoperative evaluation for planned bladder sling. Reported history of right renal angiomyolipoma. COMPARISON: Ultrasound limited abdomen 07/15/2024. CT abdomen and pelvis without contrast 09/13/2021. CT abdomen pelvis with contrast 08/14/2021. DISCUSSION: Right kidney 10.6 x 4.9 x 5.1 cm. No hydronephrosis. In the mid to upper pole renal cortex is a hyperechoic is 0.6 x 6.5 x 5.5 mm lesion. No definitive correlate on the 2020 CT studies. In the mid to lower pole near the margin of the central echo complex is a hyperechoic 1.5 x 1.1 x 1.6 cm lesion with echogenicity similar to pararenal fat. This may correspond to approximately 1.5 cm AP by 1 cm transverse by 1 cm craniocaudal dimension fat density lesion best visualized on 08/14/2021 CT with contrast axial image 69, coronal image 49, and sagittal image 86 and 09/13/2021 CT axial image 67, coronal image 80, and sagittal image 122. Left kidney 11.1 x 5.7 x 4.2 cm. No hydronephrosis. In the mid to upper pole left kidney is a hypoechoic 9.7 x 9.4 x 7.2 mm lesion which may correspond to approximately 6 mm hypodense (22 HU) lesion on 08/14/2021 CT axial image 48, coronal image 58, and sagittal image 32. Normal color Doppler signal within both kidneys. Moderate urinary bladder distention. No focal wall thickening or bladder calcification. On color Doppler imaging of the urinary bladder, bilateral ureteral jets visualized consistent with patent ureters. Grayscale and color Doppler imaging of the upper abdominal IVC is within normal limits. Procedure Note Sonny Monet MD - 12/16/[address] [address] IMAGING STUDIES: US RETROPERITONEAL COMPDATE: 12/16/2024 12:24 PM HISTORY: ANGIOMYOLIPOMA OF RIGHT KIDNEY 49-year-old female.Preoperative evaluation for planned bladder sling. Reported history ofright renal angiomyolipoma. COMPARISON: Ultrasound limited abdomen 07/15/2024. CT abdomen and pelviswithout contrast 09/13/2021. CT abdomen pelvis with contrast 08/14/2021. DISCUSSION: Right kidney 10.6 x 4.9 x 5.1 cm. No hydronephrosis. In the mid to upper pole renal cortex is a hyperechoic is 0.6 x 6.5 x 5.5mm lesion. No definitive correlate on the 2020 CT studies. In the mid to lower pole near the margin of the central echo complex is ahyperechoic 1.5 x 1.1 x 1.6 cm lesion with echogenicity similar topararenal fat. This may correspond to approximately 1.5 cm AP by 1 cmtransverse by 1 cm craniocaudal dimension fat density lesion bestvisualized on 08/14/2021 CT with contrast axial image 69, coronal image 49,and sagittal image 86 and 09/13/2021 CT axial image 67, coronal image 80,and sagittal image 122. Left kidney 11.1 x 5.7 x 4.2 cm. No hydronephrosis. In the mid to upper pole left kidney is a hypoechoic 9.7 x 9.4 x 7.2 mmlesion which may correspond to approximately 6 mm hypodense (22 HU) lesionon 08/14/2021 CT axial image 48, coronal image 58, and sagittal image 32. Normal color Doppler signal within both kidneys. Moderate urinary bladder distention. No focal wall thickening or bladdercalcification. On color Doppler imaging of the urinary bladder, bilateralureteral jets visualized consistent with patent ureters. Grayscale and color Doppler imaging of the upper abdominal IVC is withinnormal limits. IMPRESSION: 1. 1.6 cm hyperechoic lesion in the mid to lower pole right kidney nearthe margin of the central echo complex likely corresponding to previouslyidentified angiomyolipoma on the 2020 CT studies. This lesion has mildlyincreased size since 2020. 2. 6.5 mm hyperechoic lesion in the mid to upper pole right renal cortexwith no correlate on the 202 CT studies. 3. 9.7 mm hypoechoic lesion in the mid to upper pole left kidney. 4. Recommend CT abdomen without and with contrast (renal lesion protocol)to evaluate the bilateral mid to upper pole renal lesions. The previousidentified right renal angiomyolipoma would also be reevaluated. Ordered By: BETY PATIÑO Interpreted By: Sonny Monet, 12/16/2024 1:35 PM us Bety Patiño MD ULTRASOUND Final Result from Last 3 Months Insurance [facility] Care Teams Bridge Construction Inspector Relationship Specialty Start Date End Date Margie Newton MD [address] [place] [address] PCP - General FAMILY PRACTICE 05/27/22
--- OUTSIDE RECORDS SUMMARY | 2025-01-31 02:10 | XMS_ITS ---
Author Organization [facility] Address [address] [place] [address] Care Team Providers Care Club Former Name Role Phone Margie Newton Primary Care Provider UnavailRosanna Welch Unavailable [phone] Saad Soria Unavailable Unavailable ZZ-Migration, Provider Unavailable Unavailab le REASON FOR VISIT Multum To Medisp Conversion Encounter Medications Medication SIG (Take, Route, Frequency, Duration) Notes Start Date End Date Status Carvedilol 6.25 MG 1 tab(s) orally 2 times a day for 30 day(s) Active Trintellix 5 MG 1 tab(s) orally once a day for 30 day(s) 04/25/2024 Active Xyzal Allergy 24HR 5 MG 1 tablet PO daily for 30 01/05/2022 Not-Taking Vitamin C 500 MG 1 tab(s) chewed once a day for 30 day(s) Not-Taking Auvi-Q 0.3 MG/0.3ML as directed intramuscularly once for 30 day(s) Active Sertraline HCl 50 MG 1 tab(s) orally onc e a day for 30 day(s) Active Coenzyme Q10 300 MG 1 cap(s) orally once a day Active Vitamin D3 125 MCG (5000 UT) as directed orally once a day for 30 day(s) Active valACYclovir HCl 1 GM 1 tab(s) orally 2 times a day for 5 day(s) Active buPROPion HCl ER (XL) 150 MG 1 tab(s) orally every 24 hours for 30 day(s) Active Rosuvastatin Calcium 10 MG 1 tab(s) orally once a day Active Flonase Allergy Relief 50 MCG/ACT 1 spray(s) in each nostril once a day Active Calcium 500+D 500 MG-400 INTL UNITS 1 TAB(S) CHEWED 2 TIMES A DAY for 30 DAY(S) *Please review and pick correct strength-formula tion from [employer] options. If intended option is not shown, discontinue and re-order from Quick Search* Active Aspirin 81 MG 1 tab(s) chewed once a day for 30 day(s) Active Fish Oil 1000 MG 1 cap(s) orally once a day for 30 day(s) Active Nystatin 418185 UNIT/GM 1 ibeth applied topically 3 times a day Active Ramipril 5 MG 1 cap(s) orally once a day Active SIT (TRADITIONAL) VARIABLE PER SCHEDULE SC PER SCHEDULE for TO BE DETERMINED *Please review for potential replacement for e-prescription and drug interaction check* Active Xyzal Allergy 24HR 5 MG 1 tablet PO daily for 30 Active Azelastine-Fluticaso ne 137 MCG-50 MCG/INH 1 SPRAY(S) INTRANASALLY 2 TIMES A DAY for 30 DAYS *Please review and pick correct strength-formula tion from [employer] options. If intended option is not shown, discontinue and re-order from Quick Search* 04/25/2024 Active Fexofenadine HCl 180 MG 1 tab(s) orally once a day Not-Taking Rosuvastatin Calcium 10 MG 1 tab(s) orally once a day for 30 day(s) Not-Taking Quinapril HCl 10 MG 1 tab(s) orally once a day for 30 day(s) Not-Taking Famotidine 40 MG 1 tab(s) orally once a day (at bedtime) Not-Taking Levocetirizine Dihydrochloride 5 MG 1 tab(s) orally once a day (in the evening) for 30 day(s) Not-Taking Xyzal Allergy 24HR *Please revie w and pick correct strength-formula tion from [employer] options. If intended option is not shown, discontinue and re-order from Quick Search* Not-Taking Azelastine HCl 0.15 % 2 spray(s) intranasally 2 times a day for 30 day(s) 06/08/2022 Not-Taking Encounters Encounter Location Date Provider Diagnosis [facility] [address] [place] [id number] 05/11/2024 Provider ZZ-Migration Allergic rhinitis due to pollen J30.1 Assessments Encounter Date Diagnosis (ICD Code) Assessment Notes Treatment Notes Treatment Clinical Notes Section Notes 05/11/2024 Allergic rhinitis due to pollen (ICD-10 - J30.1) Plan Of Treatment Medication Medication Name Sig Start Date Stop Date Notes SIT (TRADITIONAL) VARIABLE PER SCHEDULE SC PER SCHEDULE for TO BE DETERMINED *Please review for potential replacement for e-prescription and drug interaction check* Xyzal Allergy 24HR 5 MG 1 tablet PO daily for 30 Progress Notes * Joe JACKSONfreddyDOB:1975 (49 yo F)Acc No.[id number]:05/11/2024 Patient: Damaris ORTIZ Provider: Kevin Nguyen :1975 A ge:49 Y S ex:Female Date:05/11/2024 Address:[address] [place], [place] [id number] Pcp:Margie Newton Subjective: * Chief Complaints: * 1 . [facility] To [facility] Conversion Encounter. * Medical History: * Medications: T aking Xyzal Allergy 24HR 5 MG Tablet 1 tablet PO daily , Taking Nystatin 524932 UNIT/GM Powder 1 ibeth applied topically 3 times a day , Taking Ramipril 5 MG Capsule 1 cap(s) orally once a day , Taking Rosuvastatin Calcium 10 MG Tablet 1 tab(s) orally once a day , Taking Flonase Allergy Relief 50 MCG/ACT Suspension 1 spray(s) in each nostril once a day , Taking Calcium 500+D 500 MG-400 INTL UNITS TABLET, CHEWABLE 1 TAB(S) CHEWED 2 TIMES A DAY , Notes to Pharmacist: *Please review and pick correct strength-formulation from [facility] options. If intended option is not shown, discontinue and re-order from Quick Search*, Taking Aspirin 81 MG Tablet Chewable 1 tab(s) chewed once a day , Taking Fish Oil 1000 MG Capsule 1 cap(s) orally once a day , Taking Coenzyme Q10 300 MG Capsule 1 cap(s) orally once a day , Taking Vitamin D3 125 MCG (5000 UT) Capsule as directed orally once a day , Taking valACYclovir HCl 1 GM Tablet 1 tab(s) orally 2 times a day , Taking buPROPion HCl ER (XL) 150 MG Tablet Extended Release 24 Hour 1 tab(s) orally every 24 hours , Taking Sertraline HCl 50 MG Tablet 1 tab(s) orally once a day , Taking Carvedilol 6.25 MG Tablet 1 tab(s) orally 2 times a day , Taking Auvi-Q 0.3 MG/0.3ML Solution Auto-injector as directed intramuscularly once , Taking Trintellix 5 MG Tablet 1 tab(s) orally once a day , Taking Azelastine-Fluticasone 137 MCG-50 MCG/INH SPRAY 1 SPRAY(S) INTRANASALLY 2 TIMES A DAY , Notes to Pharmacist: *Please review and pick correct strength-formulation from [employer] options. If intended option is not shown, discontinue and re-order from Quick Search*, Not-Taking/PRN Xyzal Allergy 24HR 5 MG Tablet 1 tablet PO daily , Not-Taking/PRN Vitamin C 500 MG Tablet Chewable 1 tab(s) chewed once a day , Not-Taking/PRN Azelastine HCl 0.15 % Solution 2 spray(s) intranasally 2 times a day , Not-Taking/PRN Xyzal Allergy 24HR , Notes to Pharmacist: *Please review and pick correct strength-formulation from [employer] options. If intended option is not shown, discontinue and re-order from Quick Search*, Not-Taking/PRN Rosuvastatin Calcium 10 MG Tablet 1 tab(s) orally once a day , Not-Taking/PRN Quinapril HCl 10 MG Tablet 1 tab(s) orally once a day , Not- Taking/PRN Famotidine 40 MG Tablet 1 tab(s) orally once a day (at bedtime) , Not-Taking/PRN Fexofenadine HCl 180 MG Tablet 1 tab(s) orally once a day , Not-Taking/PRN Levocetirizine Dihydrochloride 5 MG Tablet 1 tab(s) orally once a day (in the evening) Objective: * Vitals: Assessment: * Assessment: 1. A llergic rhinitis due to pollen - J30.1 (Primary) Plan: * Treatment: * Billing Information: * Visit Code: * Procedure Codes: * Electronic signature of Mulugeta WILDE-Migration on 01/31/2025 at 02:10 AM JEWEL INSPECTOR Sign off status: Pending * Provider: Kevin marin Migration Date: 0 05/11/2024 Generated for Sarbjit saucedo/Chivo/Dulceitting on: 0 01/31/2025 02:10 AM JEWEL INSPECTOR
--- OUTSIDE RECORDS SUMMARY | 2025-01-31 02:10 | XMS_ITS | Encounter Summary ---
Author Organization [facility] Address [facility] [place] [address] Care Team Providers Care Tyre Retreader Name Role Phone Saad Soria MD Primary Care Provider [phone] Margie Newton MD Primary Care Provider [phone] Encounter Details Date Type Department Care Team (Late st Contact Info) Description 12/22/2021 MyChart Message Enc [facility] Family Medicine - [place] [address] [place] [address] Saad Soria MD [address] [address] [place]opini[place] Social History Tobacco Use Types Packs/Day Years [...] Sex Assigned at Female 12/13/2024 4:26 PM BOWL TURNER Legal Sex Female 8:27 PM CDT Gender Identity Female 12/15/2021 5:23 AM BOWL TURNER Sexual Orientation Straight 12/15/2021 5: 23 AM BOWL TURNER COVID-19 Exposure Response Date Recorded In the last month, have you been in contact with someone who was confirmed or suspected to have Coronavirus / COVID-19? No / Unsure 12/16/2021 6:53 AM BOWL TURNER documented as of this encounter Progress Notes * Sharron Stewart MA - 12/22/2021 3:17 PM CST Please advise, thank you. TURNER documented in this encounter Plan of Treatment Upcoming Encounters Date Type Department Care Team (Late st Contact Info) Description 04/03/2025 12:30 PM CDT Office Visit [facility] [address] [facility], [address] [place] [address] Deisi Haji MD Three [facility] [address] [place] [address] 05/16/2025 3:40 PM CDT Office Visit [facility] Family Medicine [facility] [address] [place] [address] Margie Newton MD [address] [place], [place] [phone] documented as of this encounter Visit Diagnoses Not on filedocumented in this encounter Additional Health Concerns Assessment Noted Time PHQ-9 Depression Total Score: 0 09/01/20 21 9:38 AM CDT documented as of this encounter Care Teams Tyre Retreader Relationship Specialty Start Date End Date Saad Soria MD PCP - General FAMILY PRACTICE 12/03/19 05/26/22 Margie Newton MD [address] [place], [place] [phone] PCP - General FAMILY PRACTICE 05/27/22 documented as of this encounter
--- OUTSIDE RECORDS SUMMARY | 2025-01-31 02:10 | XMS_ITS | Encounter Summary ---
Author Organization [facility] Address [facility] [place] [address] Care Team Providers Care Senior It Engineer Name Role Phone Margie Newton MD Primary Care Provider [phone] Encounter Details Date Type Department Care Team (Late st Contact Info) Description 10/02/2024 WebStart [place] Message Enc [facility] Family Medicine [facility] [address] [place] [address] Margie Newton MD [address] [place] [address] ER Visit 10/02/2024 Social History Tobacco Use Types Packs/Day Years Used Date Smoking Tobacco: Never Passive Smoke Exposure: Never Smokeless Tobacco: Never Alcohol Use Standard Drinks/Week Comments Not Currently 1.7 (1 standard drink = 0.6 oz p ure alcohol) AUDIT-C Answer Date Recorded Frequency of Alcohol Consumption Never 12/16/2019 Average Number of Drinks Not on file 020 Frequency of Binge Drinking Not on file 11/28 PHQ-2 Answer Date Recorded Patient Health Questionnaire-2 Score 1 07/24/2024 Comments No Sex and Gender Information Value Date Recorded Sex Assigned at Female 12/13/2024 4:26 PM MULTIPLE DRUM SANDER HELPER Legal Sex Female 8:27 PM CDT Gender Identity Female 12/15/2021 5:23 AM MULTIPLE DRUM SANDER HELPER Sexual Orientation Straight 12/15/2021 5: 23 AM MULTIPLE DRUM SANDER HELPER documented as of this encounter Plan of Treatment Upcoming Encounters Date Type Department Care Team (Late st Contact Info) Description 04/03/2025 12:30 PM CDT Office Visit [facility] [address] [facility] [address], [address] [place] [address] Deisi Haji MD [address] [facility] [address] [place] [address] 05/16/2025 3:40 PM CDT Office Visit [facility] Family Medicine [facility] [address] [place] [phone] Margie Newton MD [address] [place] [address] documented as of this encounter Visit Diagnoses Not on filedocumented in this encounter Additional Health Concerns Assessment Noted Time PHQ-9 Depression Total Score: 6 07/24/20 24 2:37 PM CDT documented as of this encounter Care Teams Senior It Engineer Relationship Specialty Start Date End Date Margie Newton MD [address] [place] [address] PCP - General FAMILY PRACTICE 05/27/22 documented as of this encounter
--- NOTE | 2025-01-31 04:21 | WPDHPUPDATE1 ---
History and Physical Update Update Date/Time: 01/31/25 04:21 History and Physical has been reviewed, including an updated exam of the patient. There are NO changes in the patient's condition. Risks, benefits, and alternatives have been discussed and questions answered. Patient agrees to proceed with procedure.
--- NOTE | 2025-01-31 10:46 | WPDANESEPPF ---
Anes - Initial Pre Proc Eval Procedure: Operation Date: 01/31/25 12:00 Proposed Procedures p Trans Obturator Taping Urethral Sling - Abdelrahman Morales MD Date/Time: 01/31/25 10:46 Surgeon: Abdelrahman Morales MD Pre Op Diagnosis: stress incont Patient Data Age: 49 Gender: F Height: 1.63 m Weight: 114.5 kg Allergies Allergy/AdvReac Type Severity Reaction Status Date / Time No Known Allergies Allergy Unverified 01/22/25 10:46 Home Medications ?Medication ?Instructions ?Recorded ?Confirmed ?Type bupropion HCl 150 mg 24 hr tablet, 150 mg PO DAILY #30 tabs 07/28/20 01/22/25 Rx extended release aspirin 81 mg tablet,delayed 81 mg PO HS 01/22/25 01/22/25 History release (Adult Low Dose Aspirin) azelastine 137 mcg-fluticasone 50 1 spray intranasal DAILY PRN 01/22/25 01/22/25 History mcg/spray nasal spray allergy symptoms biotin 2,500 mcg capsule 2,500 mcg PO DAILY 01/22/25 01/22/25 History carvedilol 25 mg tablet 25 mg PO BID 01/22/25 01/22/25 History cholecalciferol (vitamin D3) 125 125 mcg PO DAILY 01/22/25 01/22/25 History mcg (5,000 unit) tablet (Vitamin D3) inulin 2 gram chewable tablet 2 g PO QPM 01/22/25 01/22/25 History (Fiber Delights) levocetirizine 5 mg tablet (24HR 5 mg PO DAILY 01/22/25 01/22/25 History Allergy Relief) miconazole nitrate 2 % topical 1 applic topical BID PRN itching 01/22/25 01/22/25 History cream multivitamin with minerals-folic 2 tablet PO HS 01/22/25 01/22/25 History acid 200 mcg chewable tablet (Adult Multivitamin Gummies) nystatin 100,000 unit/gram topical 1 applic topical TID PRN itching 01/22/25 01/22/25 History powder (Klayesta) omega 3 350 mg-dha 235 mg-epa 90 1 cap PO DAILY 01/22/25 01/22/25 History mg-fish oil 597 mg capsule,delay rel ([place]-3) oxybutynin chloride 10 mg 10 mg PO DAILY 01/22/25 01/22/25 History tablet,extended release 24 hr ramipril 5 mg capsule 5 mg PO HS 01/22/25 01/22/25 History rosuvastatin 10 mg tablet 10 mg PO HS 01/22/25 01/22/25 History tirzepatide (weight loss) 2.5 2.5 mg subcut WEEKLY 01/22/25 01/22/25 History mg/0.5 mL subcutaneous pen injector (Zepbound) vortioxetine 10 mg tablet 10 mg PO DAILY 01/22/25 01/22/25 History (Trintellix) hydrocodone 5 mg-acetaminophen 325 1 tablet PO Q6H PRN pain #20 tabs 01/31/25 Rx mg tablet Patient hx anesthesia problems: none Family hx anesthesia problems: none Results Review: All pre-operative results and documents have been reviewed as part of the pre-operative evaluation. [facility] Past Medical History Medical History (Updated 01/31/25 @ 10:47 by Fidel Del Rosario DO) Anxiety PAL (obstructive sleep apnea) Cardiomyopathy Surgical History Surgical History (Updated 01/31/25 @ 10:47 by Fidel Del Rosario DO) H/O gastric sleeve Family History Family History Mother Hypertension Social History Social History Smoking status: Never smoker Alcohol intake: current Living arrangements: with family Spiritual care concerns: No Anes - Eval Final PreProcedure Day of Procedure 01/31/25 10:46 Patient weight: morbidly obese Heart: regular rate and rhythm Lungs: clear to auscultation Airway: Mallampati scale class II Neurological: alert and oriented Last oral intake: >/= 8 hours ASA classification: III Emergent: no Anesthetic plan: proceed Anesthesia type and monitoring: general GIVS and standard monitoring Results Review: All pre-operative results and documents have been reviewed as part of the pre-operative evaluation. Informed Consent: The patient's anesthetic plan and its attendant risks and benefits were discussed with the patient/family/POA. Questions were solicited and answers provided to the satisfaction of the patient/family/POA.
[2025-01-31 10:57] VITALS: BP 120/74; PULSE 76; TEMP 36.1; O2SAT 97; BMI 42.7
[2025-01-31] MEDS: LACTATED RINGERS 1,000 ML 30 ML IV CONT (11:00)
[2025-01-31 11:01] LABS: BEDSIDEPREGUCG Negative (Negative)
[2025-01-31] MEDS: ceFAZolin 2 GM/D5W 50 ML 2 GM/50 ML BAG IVPB (11:55)
[2025-01-31] MEDS: BUPIVACAINE/EPINEPHRINE 0.5% 50 ML VIAL 10 ML INFILTRATE (12:06)
--- NOTE | 2025-01-31 12:24 | W.PM.PROC2 ---
Procedure Note - Detailed Date of Procedure 01/31/25 Pre-op Diagnosis stress incont Post-op Diagnosis Same Procedure Performed mid urethral sling cystoscopy Surgeon Abdelrahman Morales MD Anesthesia MAC and Local Indications This is a female with confirm stress urinary incontinence. She desires surgical correction. She understands the risks of bleeding, infection, injury to the urinary tract, vaginal mesh extrusion, urinary tract mesh erosion, obstructive voiding requiring a secondary procedure, hip and leg pain, dyspareunia, inability to improve overactive bladder symptoms. She agrees to proceed. Description of Procedure She was correctly identified. Informed consent obtained. She was brought the operating room. She was given appropriate anesthesia. She was given appropriate perioperative antibiotics. A time-out performed. I marked out the site of the inner thigh incisions. I anesthetized the skin and made those incisions. I anesthetized the anterior vaginal wall over the mid urethra. I made a 1 cm incision. I dissected out laterally taking great care not to injure the refilled vaginal wall. I passed the helical trocars. First on the left. Then on the right. I did this from the thigh incision towards the vaginal incision. Trocar passage was somewhat more difficult due to her body habitus. The sling was connected to the trocars and brought out through the thigh incision. I tensioned the sling appropriately. I cut and the plastic sheaths. I then closed the incision with 2 0 Vicryl. On cystoscopy there is no tumors or surgical artifact. There was no surgical artifact in the urethra. I cut the excess sling material. Close incisions with glue. She was awakened and transferred to the PACU in stable condition. Implants Urethral sling Drains No Packing No Pathology None sent Complications No immediate complications Condition Stable Disposition PACU
[2025-01-31 12:28] VITALS: BP 119/68; PULSE 72; RESP 12; O2SAT 96
[2025-01-31 12:55] VITALS: BP 116/76; PULSE 62
[2025-01-31 13:25] VITALS: BP 132/68; PULSE 59
== END 2025-01-31 14:00 | disposition home or self-care (01) ==
PROVIDERS: Visit Provider Urology
PROC: (CPT 57288; principal; 2025-01-31 12:00)
DX: N39.3 Stress incontinence (female) (male) (principal); E66.01 Morbid (severe) obesity due to excess calories; Z68.41 Body mass index [BMI] 40.0-44.9, adult
CPT/HCPCS: 57288; C1771; J0690; J2003; J2250; J2704; J3010; J7120

== ENCOUNTER 2025-06-09 01:56 | Day surgery (SDC) | payer BC, SELFPAY ==
[2025-05-28 13:57] VITALS: BMI 40.8
--- NOTE | 2025-05-28 14:06 | PC.NURSE ---
Report to the Outpatient Waiting Room, entrance under the green pavilion located off [facility], at time _1200_ on date _06/09/25. Planned Procedure Time: _1400_.? Time changes happen often and if your time is changed the preop area will call you the afternoon before. - You and your visitor will be asked to self-screen and do not enter if you have any COVID symptoms. Please call surgeon if you need to reschedule. - A mask is optional within the hospital at this time. Patients may have clear liquids (water, carbonated beverages, clear teas, apple juice) until 3 hours prior to surgery with a maximum of 20 ounces. - No food from midnight until time of surgery and no smoking, or chewing tobacco (or any form of nicotine). No chewing gum, candy or mints. - Infants may have breast milk until 4 hours before surgery, infant formula 6 hours prior to surgery. - Children will be allowed to drink immediately following surgery.? If applicable, please bring a bottle or sippy cup to assist with drinking. Juice, water, soda, and popsicles are readily available.? For infants on formula, please bring formula the day of surgery.? Pacifiers are allowed. Take only the following medications with a SIP of water on the morning of surgery: ___BUPROPION AND CARVEDILOL DO NOT STOP ANY OF YOUR OTHER PRESCRIPTION MEDICATIONS PRIOR TO SURGERY EXCEPT THE FOLLOWING Hold all vitamins and supplements for 3 days per anesthesiologist. Medications to discontinue per physician ASPIRIN Date to take last dose AS DIRECTED BY DOCTOR Please no make-up, nail omani, hairspray, perfume, deodorant, or body powder the day of surgery.? No jewelry (including any body piercings) or valuables the day of surgery, leave them at home.? Please take a shower or bath the night before, or the morning of, surgery with an antibacterial soap.? Wear comfortable, loose fitting clothing.? Children are encouraged to wear pajamas. - Jewelry must be removed prior to entering the operating room.? Rings and piercings that are not removed may be cut off. - The hospital will not accept responsibility for valuables.? - Please leave all valuables, including medications, at home the day of surgery. If you are going home after surgery, a licensed hammer driver must drive you home.? - NO public transportation without another adult if you receive anesthesia. - We recommend that an adult stay with you for 24 hours following discharge. - We also recommend that you do not drive, make important decision, drink alcoholic beverages, or take any drugs that were not prescribed by your health care provider for at least 24 hours after your discharge time. For Pediatric surgeries, we recommend two adults accompany the child home. Follow any additional instructions given to you from your surgeon. Telephone instructions given to __PATIENT__and asked if any additional questions and then verbalized understanding. Patient advised to call surgeon office or pre surgery nurse liaison [phone] if any additional questions.
--- NOTE | 2025-06-03 18:53 | P.HP_ITS ---
H&P: HPI History of Present Illness Date/Time: 06/03/25 18:53 Chief Complaint: mesh exposure Narrative: s/p urethral sling Review of Systems Review of Systems: All systems reviewed & are unremarkable except as noted in HPI and below PMFSH Past Medical History Medical History Anxiety PAL (obstructive sleep apnea) Cardiomyopathy Surgical History Surgical History H/O gastric sleeve Family History Family History Mother Hypertension Social History Social History Smoking status: Never smoker Alcohol intake: current Alcohol use details: 1 PER MONTH Substance use type: does not use Living arrangements: alone Spiritual care concerns: No Meds Home Medications and Allergies Home Medications ?Medication ?Instructions ?Recorded ?Confirmed ?Type bupropion HCl 150 mg 24 hr tablet, 150 mg PO DAILY #30 tabs 07/28/20 05/28/25 Rx extended release aspirin 81 mg tablet,delayed 81 mg PO HS 01/22/25 01/22/25 History release (Adult Low Dose Aspirin) azelastine 137 mcg-fluticasone 50 1 spray intranasal DAILY PRN 01/22/25 05/28/25 History mcg/spray nasal spray allergy symptoms biotin 2,500 mcg capsule 2,500 mcg PO DAILY 01/22/25 05/28/25 History carvedilol 25 mg tablet 25 mg PO BID 01/22/25 05/28/25 History cholecalciferol (vitamin D3) 125 125 mcg PO DAILY 01/22/25 05/28/25 History mcg (5,000 unit) tablet (Vitamin D3) inulin 2 gram chewable tablet 2 g PO QPM 01/22/25 05/28/25 History (Fiber Delights) levocetirizine 5 mg tablet (24HR 5 mg PO DAILY 01/22/25 05/28/25 History Allergy Relief) miconazole nitrate 2 % topical 1 applic topical BID PRN itching 01/22/25 05/28/25 History cream multivitamin with minerals-folic 2 tablet PO HS 01/22/25 05/28/25 History acid 200 mcg chewable tablet (Adult Multivitamin Gummies) nystatin 100,000 unit/gram topical 1 applic topical TID PRN itching 01/22/25 05/28/25 History powder (Klayesta) omega 3 350 mg-dha 235 mg-epa 90 1 cap PO DAILY 01/22/25 05/28/25 History mg-fish oil 597 mg capsule,delay rel ([place]-3) oxybutynin chloride 10 mg 10 mg PO DAILY 01/22/25 05/28/25 History tablet,extended release 24 hr ramipril 5 mg capsule 5 mg PO HS 01/22/25 05/28/25 History rosuvastatin 10 mg tablet 10 mg PO HS 01/22/25 05/28/25 History tirzepatide (weight loss) 2.5 2.5 mg subcut WEEKLY 01/22/25 05/28/25 History mg/0.5 mL subcutaneous pen injector (Zepbound) vortioxetine 10 mg tablet 10 mg PO DAILY 01/22/25 05/28/25 History (Trintellix) Allergies Allergy/AdvReac Type Severity Reaction Status Date / Time No Known Allergies Allergy Unverified 05/28/25 13:51 Exam Narrative: sml area of mesh exposure Assessment and Plan Assessment and plan (1) Exposure of vaginal mesh through vaginal wall: Code(s): T83.721A - Exposure of implanted vaginal mesh into vagina, initial encounter Status: Acute Assessment and Plan: excision of exposed mesh/cysto-bulking agent
[2025-06-09] VITALS (9 sets, daily range): BP systolic 110–139; BP diastolic 52–89; PULSE 59–108; RESP 16–18; TEMP 36.1–36.4; O2SAT 96–98
--- OUTSIDE RECORDS SUMMARY | 2025-06-09 01:59 | XMS_ITS | Encounter Summary ---
Author Organization [facility] Address [facility] [place] [address] Care Team Providers Care Application Systems Administrator Name Role Phone Margie Newton MD Primary Care Provider [phone] Encounter Details Date Type Department Care Team (Late st Contact Info) Description 04/25/2024 Splasht Message Enc [facility] Medical Group Family Medicine [facility] [address] [place] [phone] Margie Newton MD [address] [place] [phone] Compression socks Social History Tobacco Use [...] Sex Assigned at Female 12/13/2024 4:26 PM CASUALTY UNDERWRITER Legal Sex Female 8:27 PM CDT Gender Identity Female 12/15/2021 5:23 AM CASUALTY UNDERWRITER Sexual Orientation Straight 12/15/2021 5: 23 AM CASUALTY UNDERWRITER documented as of this encounter Plan of Treatment Upcoming Encounters Date Type Department Care Team (Late st Contact Info) Description 10/02/2025 1:30 PM CASUALTY UNDERWRITER Office Visit [facility] [address] [facility] [place] [address] Deisi Haji MD Three [facility] [address] [place] [address] documented as of this encounter Visit Diagnoses Not on filedocumented in this encounter Additional Health Concerns Assessment Noted Time PHQ-9 Depression Total Score: 13 023 8:13 AM CDT documented as of this encounter Care Teams Application Systems Administrator Relationship Specialty Start Date End Date Margie Newton MD [address] [place] [address] PCP - General FAMILY PRACTICE 05/27/22 documented as of this encounter
--- OUTSIDE RECORDS SUMMARY | 2025-06-09 01:59 | XMS_ITS | Encounter Summary ---
Author Organization [facility] Address [facility] [place] [address] Care Team Providers Care Reimbursement Liaison Name Role Phone Margie Newton MD Primary Care Provider [phone] Encounter Details Date Type Department Care Team (Late st Contact Info) Description 03/10/2023 Roll20t Message Enc [facility] Medical Group Family Medicine [facility] [address] [place] [address] Margie Newtno MD [address] [place] [address] Vraylar Social History Tobacco Use Types [...] Sex Assigned at Female 12/13/2024 4:26 PM GUARD SUPERVISOR Legal Sex Female 8:27 PM CDT Gender Identity Female 12/15/2021 5:23 AM GUARD SUPERVISOR Sexual Orientation Straight 12/15/2021 5: 23 AM GUARD SUPERVISOR COVID-19 Exposure Response Date Recorded In the [...] st Contact Info) Description 10/02/2025 1:30 PM GUARD SUPERVISOR Office Visit [facility] [address] [facility] [place] [address] Deisi Haji MD [address] [facility] [address] [place] [address] documented as of this encounter Visit Diagnoses Not on filedocumented in this encounter Additional Health Concerns Assessment Noted Time PHQ-9 Depression Total Score: 11 023 9:44 AM CDT documented as of this encounter Care Teams Reimbursement Liaison Relationship Specialty Start Date End Date Margie Newton MD [address] [place] [address] PCP - General FAMILY PRACTICE 05/27/22 documented as of this encounter
--- OUTSIDE RECORDS SUMMARY | 2025-06-09 01:59 | XMS_ITS | Encounter Summary ---
Author Organization [facility] Address [facility] [place] [address] Care Team Providers Care Handle Bar Assembler Name Role Phone Saad Soria MD Primary Care Provider [phone] Margie Newton MD Primary Care Provider [phone] Encounter Details Date Type Department Care Team (Late st Contact Info) Description 12/27/2019 Mavin Message Enc [facility] Medical Group Family Medicine [facility] [address] [place] [address] [facility] Provider RE:PAP Social History Tobacco Use [...] Sex Assigned at Female 12/13/2024 4:26 PM OVERNIGHT HOUSEPERSON Legal Sex Female 8:27 PM CDT Gender Identity Female 12/15/2021 5:23 AM OVERNIGHT HOUSEPERSON Sexual Orientation Straight 12/15/2021 5: 23 AM OVERNIGHT HOUSEPERSON documented as of this encounter Plan of Treatment Upcoming Encounters Date Type Department Care Team (Late st Contact Info) Description 10/02/2025 1:30 PM OVERNIGHT HOUSEPERSON Office Visit [facility] [address] Deisi Haji MD Three [facility] Suite [facility] [place] [address] documented as of this encounter Visit Diagnoses Not on filedocumented in this encounter Care Teams Handle Bar Assembler Relationship Specialty Start Date End Date Saad Soria MD PCP - General FAMILY PRACTICE 12/03/19 05/26/22 Margie Newton MD [address] [place] [address] PCP - General [facility] PRACTICE 05/27/22 documented as of this encounter
--- OUTSIDE RECORDS SUMMARY | 2025-06-09 01:59 | XMS_ITS | Clinical Summary ---
Author Organization [facility] Address [address] [place] [address] Care Team Providers Care Medical Appointment Scheduler Name Role Phone Margie Newton MD Primary Care Provider [phone] Source Comments [facility],non-owned Affiliates and Associated Physician Practices is amultiple site organization consisting of ambulatory clinics and hospital sitesin [place], [place], [place] and [place]. This disclosure is being madepursuant to the Care Everywhere program and may not contain all information available regarding this patient. Last updated 18.[facility] Social History Tobacco Use Types Packs/Day Years Used Date Smoking Tobacco: Never Assessed Comments Unknown Sex and Gender Information Value Date Recorded Sex Assigned at Female 09/14/2021 7:00 PM CDT Legal Sex Female 5:05 PM PATCH WASHER Gender Identity Female 09/14/2021 7:00 PM CDT [...] SCREENING 1976 LIPID TESTING 1976 MAMMOGRAM 1976 HIV SCREENING 02/12/1991 HEPATITIS C SCREENING 02/08/1994 DTAP/TDAP/TD VACCINES (1 - Tdap) 02/12/1995 HEPATITIS B VACCINE (1 of 3 - 19+ 3-dose series) 02/12/1995 PAP SMEAR 02/12/1997 COVID-19 VACCINE ( season) 2024 08/31/2021, 02/08/2021, 01/18/2021 DEPRESSION SCREENING 11/27/2024 INFLUENZA VACCINE (#1) 2025 2, 08/04/2021, 09/20/2020, Additional history exists ZOSTER VACCINE (1 of 2) 02/12/2026 HIB VACCINE Aged Out No longer eligi ble based on patient's age to complete this topic HPV VACCINE Aged Out No longer eligi ble based on patient's age to complete this topic MENINGOCOCCAL (Group B) VACCINE SHARED DECISION-MAKING Aged Out No longer eligible based on patient's age to complete this topic MENINGOCOCCAL GROUPS A/C/Y/W VACCINE Aged Out No longer eligible based on patient's age to complete this topic Insurance ANTHEM ANTHEM Care Teams Medical Appointment Scheduler Relationship Specialty Start Date End Date Margie Newton MD [address] [address] PCP - General Family Medicine 11/23/23
--- OUTSIDE RECORDS SUMMARY | 2025-06-09 01:59 | XMS_ITS | Encounter Summary ---
Author Organization [facility] Address [facility] [place] [address] Care Team Providers Care Warehouse Team Leader Name Role Phone Saad Soria MD Primary Care Provider [phone] Margie Newton MD Primary Care Provider [phone] Encounter Details Date Type Department Care Team (Late st Contact Info) Description 02/03/2020 MyChart Message Enc [facility] Medical Group Family Medicine - [place] [address] [place] [phone] Saad Soria MD [address] [address] Question Social History Tobacco Use [...] Sex Assigned at Female 12/13/2024 4:26 PM CORPSMAN Legal Sex Female 8:27 PM CDT Gender Identity Female 12/15/2021 5:23 AM CORPSMAN Sexual Orientation Straight 12/15/2021 5: 23 AM CORPSMAN documented as of this encounter Plan of Treatment Upcoming Encounters Date Type Department Care Team (Late st Contact Info) Description 10/02/2025 1:30 PM CORPSMAN Office Visit [facility] [address] [facility] [place] [address] Deisi Haji MD Three [facility] [address] [place] [address] documented as of this encounter Visit Diagnoses Not on filedocumented in this encounter Care Teams Warehouse Team Leader Relationship Specialty Start Date End Date Saad Soria MD PCP - General FAMILY PRACTICE 12/03/19 05/26/22 Margie Newton MD [address] [place] [address] PCP - General FAMILY PRACTICE 05/27/22 documented as of this encounter
--- OUTSIDE RECORDS SUMMARY | 2025-06-09 01:59 | XMS_ITS | Encounter Summary ---
Author Organization [facility] Address [facility] [place] [address] Care Team Providers Care Officer Lieutenant Name Role Phone Margie Newton MD Primary Care Provider [phone] Encounter Details Date Type Department Care Team (Late Contact Info) Description 05/31/2023 CrowdComfort Message Enc [facility] Medical Group [address] [address] [place] Provider appt Social History Tobacco Use Types [...] Sex Assigned at Female 12/13/2024 4:26 PM PRACTICE SUPPORT SPECIALIST Legal Sex Female 8:27 PM CDT Gender Identity Female 12/15/2021 5:23 AM PRACTICE SUPPORT SPECIALIST Sexual Orientation Straight 12/15/2021 5: 23 AM PRACTICE SUPPORT SPECIALIST COVID-19 Exposure Response Date Recorded In the last 10 days, have yo u been in contact with someone who was confirmed or suspected to have Coronavirus/COVID-19? No / Unsure 05/10/2023 3:15 PM CDT documented as of this encounter Plan of Treatment Upcoming Encounters Date Type Department Care Team (Late st Contact Info) Description 10/02/2025 1:30 PM PRACTICE SUPPORT SPECIALIST Office Visit [facility] [address] [facility] [place] [address] Deisi Haji MD Three [facility] [address] [place] [address] documented as of this encounter Visit Diagnoses Not on filedocumented in this encounter Additional Health Concerns Assessment Noted Time PHQ-9 Depression Total Score: 13 023 8:13 AM CDT documented as of this encounter Care Teams Officer Lieutenant Relationship Specialty Start Date End Date Margie Newton MD [address] [place] [address] PCP - General FAMILY PRACTICE 05/27/22 documented as of this encounter
--- OUTSIDE RECORDS SUMMARY | 2025-06-09 01:59 | XMS_ITS | Encounter Summary ---
Author Organization [facility] Address [address] [place] [address] Care Team Providers Care Director Music Name Role Phone Margie Newton MD Primary Care Provider Encounter Details Date Type Department Care Team (Late st Contact Info) Description 12/01/2020 Lab Requisition [facility] DermPath Lab [address] [facility] [place] [address] Melodie Thomas MD [address] [facility] [address] [place] [address] Social History Tobacco Use Types Packs/Day Years Used Date Smoking Tobacco: Never Assessed Comments Unknown Sex and Gender Information Value Date Recorded Sex Assigned at Female 09/14/2021 7:00 PM CDT Legal Sex Female 5:05 PM BUSINESS APPLICATIONS ANALYST Gender Identity Female 09/14/2021 7:00 PM CDT Sexual Orientation Straight 09/14/2021 7: 00 PM CDT documented as of this encounter Plan of Treatment Not on file documented as of this encounter Procedures Procedure Name Priority Date/Time Associated Diagnosis Comments DERMATOPATHOLOGY Routine 11/30/2020 12:0 0 AM BUSINESS APPLICATIONS ANALYST documented in this encounter Results * DERMATOPATHOLOGY (11/30/2020 12:00 AM BUSINESS APPLICATIONS ANALYST) Case Report Dermatopathology Report Case: [id number] Authorizing Provider: Melodie Thomas MD Collected: 11/30/2020 12:00 AM Ordering Location: [facility]erm[facility] Lab Received: 12/01/2020 06:34 AM Pathologist: Lily Vega MD Specimen: Skin, left upper back 6:18 PM BUSINESS APPLICATIONS ANALYST DERMATOPATHOLOGY LABORATORY Final Diagnosis Specimen A. SKIN, left upper back: EPIDERMOID CYST (L72.0) 1 6:18 PM [facility] DERMATOPATHOLOGY LABORATORY at [address] BUSINESS APPLICATIONS ANALYST Clinical History R/O BCC, cyst, irritated. 1 6:18 PM [facility] DERMATOPATHOLOGY LABORATORY Gross Description Specimen A: Received is one formalin filled container labeled with the patient's name and designated left upper back. The specimen consists of a shave (4 pieces) measuring [id number], 8u0a0mf, 2k9g4oh, & 5k0g1cb. Jar 0+. 1 6:18 PM [facility] DERMATOPATHOLOGY LABORATORY Microscopic Description Specimen A. SKIN, left upper back: Within the dermis, there is a space lined by epithelium that resembles normal epidermis and the infundibular portion of the hair follicle. 1 6:18 PM [facility] DERMATOPATHOLOGY LABORATORY Disclaimer An external and internal positive and negative controls are appropriate for the histochemical, immunohistochemical and immunofluorescence stain(s) in this case (if any), except where stated explicitly. The performance characteristics of the stain(s) cited in this report were developed and its performance characteristic determined by the Dermatopathology Laboratory at [facility], directed by Dr. Aidee Anaya. These tests need not be, and therefore are not, approved by the [place] Food and Drug Administration. The tests are used for clinical purposes. Billing Codes Specimen Charges Stain Charges 49325 1 1 6:18 PM [facility] DERMATOPATHOLOGY LABORATORY Embedded Images 1 6:18 PM [facility] DERMATOPATHOLOGY LABORATORY Pathology/Cytolog y TISSUE SPECIMEN FROM SKIN / Unknown 11/30/2020 12/01/2020 6:34 AM [facility] Melodie Thomas MD LAB - PATHOLOGY/CYTOLOGY OR DERABLES Final Result DERMATOPATHOLOGY LABORATORY [facility] - Department of Dermatology [address] [phone] documented in this encounter Visit Diagnoses Not on filedocumented in this encounter Care Teams Director Music Relationship Specialty Start Date End Date Margie Newton MD [address] [address] PCP - General Family Medicine 11/23/23 documented as of this encounter
--- OUTSIDE RECORDS SUMMARY | 2025-06-09 01:59 | XMS_ITS | Continuity of Care Document ---
Author Organization [facility] Address [address] [facility] [address]th [place] [address] Social History Not on File Plan of Treatment Not on file
--- OUTSIDE RECORDS SUMMARY | 2025-06-09 01:59 | XMS_ITS | Referral Summary ---
Author Organization [address] Address [address] [place] [phone] Care Team Providers Care Commercial Field Inspector Name Role Phone Yael Brothers NP Unavailable Margie Newton MD Primary Care Provider Encounters Date Type Department Care Team Description 05/20/2025 3:15 PM CDT Office Visit [facility] Otolaryngology [address] [place] [phone] James Tran MD Nasal obstruction (Primary Dx); Non-seasonal allergic rhinitis, unspecified trigger; Lightheadedness 04/30/2025 Imaging Exam [facility] Otolaryngology [address] [place] [phone] James Tran MD Nasal obstruction (Primary Dx) 04/30/2025 3:30 PM CDT Office Visit [facility] Otolaryngology [address] [place] [phone] Non-seasonal allergic rhinitis, unspecified trigger (Primary Dx) 04/25/2025 Telephone [facility] Otolaryngology [address] [place] [phone] McCarkel, Ana Maria Allergy Testing 04/22/2025 3:45 PM CDT Office Visit [facility] Otolaryngology [address] [place] [address] James Tran MD Non-seasonal allergic rhinitis, unspecified trigger (Primary Dx); Chronic pansinusitis; Nasal obstruction 04/10/2025 3:30 PM CDT Office Visit [facility] Pul[facility] [place] [address] [place] [address] Isa Perez NP Obstructive sleep apnea syndrome (Primary Dx) 04/07/2025 Telephone [facility] Obstetrical Gynecology [address] [place] [address] Agata Galvez MD from Last 3 Months Allergies No known active allergies Medications multivitamin tablet tablet Take one by mouth one time per day 0 0 9 Active biotin 2,500 mcg capsule Take by mouth daily Active cholecalcifero l, vitamin D3, (VITAMIN D3 ORAL) Take 5,000 Units by mouth daily Active aspirin 81 mg enteric coated tablet Take 1 tablet (81 mg total) by mouth daily Active carvediloL (COREG) 25 mg tablet Take 1 tablet (25 mg total) by mouth 2 (two) times a day with meals 60 tablet 11 2 Active rosuvastatin (CRESTOR) 10 mg tablet Take 1 tablet (10 mg total) by mouth nightly 2 Active nystatin powder APPY TO FOLDS 3 TIMES A DAY 2 Active levocetirizine (XYZAL) 5 mg tablet 1 Active buPROPion XL (WELLBUTRIN XL) 150 mg 24 hr tablet Take 1 tablet (150 mg total) by mouth every morning 3 Active scbcz-4-xlr-ep a-dpa-fish oil 1,050-1,200 mg capsule Active oxyBUTYnin XL (DITROPAN-XL) 10 mg 24 hr tablet Take 1 tablet (10 mg total) by mouth daily 3 Active ramipriL (ALTACE) 5 mg capsule Take by mouth daily 3 Active valACYclovir (VALTREX) 500 mg tablet 3 Active azelastine-flu ticasone 137-50 mcg/spray spray,non-aero asmita SPRAY 1 SPRAY INTRANASALLY TWICE A DAY FOR 30 DAYS Active Trintellix 10 mg tablet Take 1 tablet (10 mg total) by mouth daily Active miconazole 2 % cream Apply topically 2 (two) times a day 42.5 g 2 4 Active tirzepatide, weight loss, (Zepbound) 5 mg/0.5 mL pen injector Inject 0.5 mL (5 mg total) under the skin every 7 days Active methylPREDNISo lone (MEDROL DOSEPACK) 4 mg Dosepack Take as directed on package 1 packet 5 025 Discontin ued(Patie nt Reported) Active Problems Problem Noted Date Diagnosed Date Deviated nasal septum 06/04/2025 Hypertrophy of nasal turbinates 06/04/2025 Lightheadedness 05/20/2025 Assessment & Plan (05/20/2025 8:30 PM CDT): I think this is vasovagal and likely not vertigo. I suggested that she talk with her primary care physician or hospice superintendent if it continues. Non-seasonal allergic rhinitis 04/22/2025 Assessment & Plan (05/20/2025 8:28 PM CDT): She has multiple allergies. They are all generally in the moderate range. I think medication should be sufficient to treat these as well as some avoidance measures. She understands. She will continue with her Xyzal and Dymista spray. Assessment & Plan (04/22/2025 8:44 PM CDT): I recommended allergy testing and she would like to go ahead and pursue that. I think she probably needs to consider doing allergy shots again. I also recommended that she continue with her Xyzal. I also stressed the importance of using her nasal spray on a daily basis. She understands. Cervical radiculopathy 10/27/2023 Hypersomnia 03/21/2023 Assessment & Plan (04/04/2024 11:55 AM CDT): The patient denies falling asleep at inappropriate times. Assessment & Plan (03/21/2023 12:02 PM CDT): The patient denies the want for stimulant therapy due to heart condition. I have ordered a vitamin-D, vitamin B12, and thyroid level. Chronic pansinusitis 02/01/2023 Assessment & Plan (04/22/2025 8:50 PM CDT): She may have underlying sinusitis. She has had prior sinus surgery. I recommended a sinus CT scan for further evaluation of this. She would like to go ahead pursue this. I will see her in follow up and go over those results with her at that time. I am going to treat with a steroid and an antibiotic for 2 weeks. This did help her several years ago when I saw her for similar symptoms. She would like to pursue that. Assessment & Plan (03/16/2023 11:10 AM CDT): [...] that. Nasal obstruction 02/01/2023 Assessment & Plan (05/20/2025 8:27 PM CDT): She does have significant deviation of her nasal septum on her CT scan and also on her physical exam. She has a enlarged inferior turbinates also. The sinuses generally are okay however. I think she would benefit from a septoplasty with bilateral inferior turbinectomy. I discussed the risk of a septoplasty with and without turbinectomy with the patient. There is a risk of continued nasal obstruction, bleeding, septal perforation, permanent anosmia. Also risk of inadequate correction which could result in continued nasal obstruction symptoms. She indicated understanding. She would like to go ahead and schedule this. Assessment & Plan (04/22/2025 8:43 PM CDT): She has nasal obstruction which is likely due to mild deviation of her nasal septum with enlarged inferior turbinates. She also has significant bilateral nasal valve insufficiency. I talked with her about that. It may require surgery to correct. Very difficult I explained. I am recommending allergy testing and a sinus CT scan. I am also going to treat her with a steroid and antibiotic course. I recommended that she use her Dymista nasal spray daily. Very important considering the degree of allergy she suffers. Assessment & Plan (02/05/2023 6:03 PM CDT): [...] sleep apnea syndrome 12/17/2016 Assessment & Plan (04/10/2025 4:10 PM CDT): The patient denies falling asleep at inappropriate times. The patient will continue to wear her CPAP at auto titrating range 810 cm water pressure while sleeping. Her DME is [employer]. She is going to speak with her hospice superintendent about lowering her blood pressure medication. Assessment & Plan (04/04/2024 11:50 AM CDT): [...] but would like him sent to a [employer] company. Patient states that she has finally found a mask that she likes. She is going to call to [facility] to see if they supply the mask [...] on file Legal Sex Female 12:52 AM IRON SETTER Gender Identity Not on file Sexual Orientation Straight 12/10/2020 1: 02 PM IRON SETTER Last Filed Vital Signs Vital Sign Reading Time Taken Comments Blood Pressure 120/76 04/10/2025 3:36 PM CDT Pulse 58 04/10/2025 3:36 PM CDT Temperature 35.2 C (95.4 F) 04/10/2025 3:36 PM CDT Respiratory Rate 17 05/20/2025 3:49 PM CDT Oxygen Saturation 94% 04/10/2025 3:36 PM CDT Inhaled Oxygen Concentration - - Weight 109.8 kg (242 lb) 05/20/2025 3:49 PM CDT Height 162.6 cm (5' 4) 05/20/2025 3:49 PM CDT Body Mass Index 41.54 05/20/2025 3:49 PM CDT Plan of Treatment Upcoming Encounters Date Type Department Care Team (Latest Contact Info) Description 07/14/2025 8:40 AM CDT Hospital Encounter [address] [address] James Tran MD [address] [place] [address] 07/14/2025 8:40 AM CDT - 07/14/2025 10:10 AM CDT Surgery [facility] OR [address] [place] [address] James Tran MD [address] [place] [address] SEPTOPLASTY. [14433 (CPT )] Scheduled Procedures Name Priority Associated Diagnoses Date/Ti me SEPTOPLASTY. Deviated nasal septum Hypertrophy of nasal turbinates 07/14/2025 8:40 AM CDT EXCISION INFERIOR TURBINATE. Deviated nasal septum Hypertrophy of nasal turbinates 07/14/2025 8:40 AM CDT Procedures Procedure Name Priority Date/Time Associated Diagnosis Comments SCREENING MAMMOGRAM BILATERAL W JEAN-CLAUDE Schedule Routine, Read Routine (OP Routine) 01/11/2025 9:26 AM IRON SETTER Well woman exam HIGH RISK HPV DNA DETECTION WITH GENOTYPING Routine 09/26/2023 2:26 PM CDT Well woman exam from Last 3 Months or Most Recently Relevant to Health Maintenance Results * Screening Mammogram Bilateral W Jean-Claude (01/11/2025 9:26 AM IRON SETTER) Anatomical Region Laterality Modality Breast Bilateral Mammography Impressions 01/13/2025 8:41 AM IRON SETTER BI-RADS ATLAS category (overall): 1 - Negative There is no mammographic evidence of malignancy. A 1 year screening mammogram is recommended. The patient has been or will be contacted. We recommend annual screening mammography for women at average risk of breast cancer beginning at age 40, based on guidelines of the [place] [employer] (ACR Practice Parameter for the Performance of Screening and Diagnostic Mammography) and [place] [employer]. For women with and elevated risk of breast cancer, please refer to the ACR Practice Parameter for specific screening recommendations. The patient will be entered into a reminder system with a target due date of 1 year for her next screening exam. Narrative 01/13/2025 8:41 AM IRON SETTER Screening Mammogram Bilateral W Jean-Claude: 01/11/25 The [...] Detected NISHANT OAKLEY Comment:Testing performed by : [facility], [address] [place]., [address] HPV HR 18 Not Detected Not Detected NISHANT OAKLEY Comment:Testing performed by : [facility], [address] [place]., [address] HPV HR Non 16/18 Not Detected Not [...] this test have been verified by the [facility] Molecular Infectious Disease laboratory. Correlate with separately reported cytology results, as applicable. Interpretive data last revised 23 Testing performed by: [facility], [address] [place]., [address] Endocervical 09/26/2023 2:26 PM CDT 09/29/2023 2:59 PM CDT Merged With [facility] NISHANT - 09/30/2023 2:22 AM CDT Clinical history and diagnosis->routine Number of vials->1 Testing type->Screening Last menstrual period (date if known)->08/03/2023 Agata Galvez MD LAB BODY FLUIDS AND STOOLS ORDERABLES Final Result [facility] [address] [facility] Department [place] [address] from Last 3 Months or Most Recently Relevant to Health Maintenance Insurance [employer] [place] [employer] [place] [facility] Care Teams Commercial Field Inspector Relationship Specialty Start Date End Date Margie Newton MD [address] [facility] [place] [address] PCP - General Family Practice 11/23/22 Yael Brothers NP Obstetrics and Gynecology 11/23/22
--- OUTSIDE RECORDS SUMMARY | 2025-06-09 01:59 | XMS_ITS | Clinical Summary ---
Author Organization [address] Address [address] [place] [phone] Care Team Providers Care Rotary Lithographic Press Operator Name Role Phone Yael Brothers NP Unavailable [...] total) by mouth every morning 3 Active dqjzf-4-ylo-ep a-dpa-fish oil 1,050-1,200 mg capsule Active oxyBUTYnin [...] talk with her primary care physician or candle molder hand if it continues. Non-seasonal allergic rhinitis 04/22/2025 [...] She is going to speak with her candle molder hand about lowering her blood pressure medication. Assessment [...] water pressure. Patient denied need for supplies. [employer] company provider Plus. Patient is benefitting from [...] likes. She is going to call to [facility] to see if they supply the mask [...] Description 05/20/2025 3:15 PM CDT Office Visit [facility] Otolaryngology [address] [place] [phone] James Tran MD Nasal obstruction (Primary Dx); Non-seasonal allergic rhinitis, unspecified trigger; Lightheadedness 04/30/2025 3:30 PM CDT Office Visit [facility] Otolaryngology [address] [place] [phone] Non-seasonal allergic rhinitis, unspecified trigger (Primary Dx) 04/30/2025 Imaging Exam [facility] Otolaryngology [address] [place] [phone] James Tran MD Nasal obstruction (Primary Dx) 04/25/2025 Telephone [facility] Otolaryngology [address] [place] [phone] Ana Maria Rico Allergy Testing 04/22/2025 3:45 PM CDT Office Visit [facility] Otolaryngology [address] [place] [phone] James Tran MD Non-seasonal allergic rhinitis, unspecified trigger (Primary Dx); Chronic pansinusitis; Nasal obstruction 04/10/2025 3:30 PM CDT Office Visit [facility] Pulmonary [place] [address] [place] [address] Isa Perez NP Obstructive sleep apnea syndrome (Primary Dx) 04/07/2025 Telephone [facility] Obstetrical Gynecology [address] [place] [address] Agata Galvez MD from Last 3 Months Immunizations Immunization Administration [...] TONSILLECTOMY tonsillectomy LASIK Lasik INTERRUPTED AORTIC ARCH REPAIR, CLOSURE VENTRICULAR SEPTAL DEFECT Ventricular Septal Defect Repair - (Added by TW Conv) SINUS SURGERY Sinus Surgery - (Added by TW Conv) LASIK Corneal LASIK - (Added by TW Conv) [place] TONSILLECTOMY PRIMARY/SECONDARY <AGE 12 Tonsillectomy - (Added by TW Conv) BARIATRIC SURGERY gastric sleeve HYSTEROSCOPY W/ POLYPECTOMY URETHRAL SLING 01/25/2025 - 02/24/2025 Medical History Medical History Date Comments Hx Other Medical 2008 mildly elevated cholesterol Hx Other Medical hairline fractu re of little finger Hx Other Medical poss ankle frac ture Hyperlipidemia hyperlipidemia Hx Other Medical palpitations wi th occ PAC & PVC Hx Other Medical anxiety/depress ion Pneumonia 1976 pneumonia Pneumonia 1991 pneumonia Allergic rhinitis Anxiety Cardiomyopathy (HCC) Depression Loss of smell Migraine Heart disease Cardiomyopathy Sleep apnea Kidney stone Jul 2021 PMB (postmenopausal bleeding) Nasal obstruction Sinusitis Family History Medical History Relation Name Comments [...] histor y of hyperlipidemia - (Added by Conv) Hypertension Mother Marlyne Family history of hypertension - (Added by Conv) Obesity Mother Marlyne Family history of obesity - (Added by Conv) Sleep apnea Mother Marlyne Family history of sleep apnea - (Added by Conv) Hypertension Other 2 Hypertension; u nspecified [...] on file Legal Sex Female 12:52 AM CAMPUS SECURITY OFFICER Gender Identity Not on file Sexual Orientation Straight 12/10/2020 1: 02 PM CAMPUS SECURITY OFFICER Obstetrics History Para Term AB IAB SAB [...] Description 07/14/2025 8:40 AM CDT Hospital Encounter [facility] OR [address] [place] [address] [place] [address] 07/14/2025 8:40 AM CDT - 07/14/2025 10:10 AM CDT Surgery [facility] [place] [address] [place] [address] James Tran MD [address] [address] SEPTOPLASTY. [15371 (CPT )] Scheduled Procedures Name Priority Associated Diagnoses Date/Ti me SEPTOPLASTY. Deviated nasal septum Hypertrophy of nasal turbinates 07/14/2025 8:40 AM CDT EXCISION INFERIOR TURBINATE. Deviated nasal septum Hypertrophy of nasal turbinates 07/14/2025 8:40 AM CDT Health Maintenance Due Date Last Done Comments Colon Cancer Screening-Colonoscopy 1976 Depression Screening 1976 Hepatitis C Screening 1976 Hepatitis B Screening 02/12/1994 Pneumococcal vaccine <65 (2 of 2 - PCV) 08/28/2018 08/28/2017 Covid-19 Vaccine (2023-2 5 season) 2024 09/18/2023, 09/23/2022, 08/31/2021, Additional history exists Cervical Cancer Screening 09/26/20242022, 09/26/2023, 08/17/2022 Influenza Vaccine (#1) 2025 , 09/23/2022, 09/23/2022, Additional history exists Regular Well Visit/Exam 18-64 09/27/2025, 09/26/2023, 08/17/2022 Breast Cancer Screening-Mammogram 01/11/2026 01/11/2025, 12/16/2023, 11/23/2022 DTaP/Tdap/Td Vaccine (2 - Td or Tdap) 10/11/2034 10/11/2024 Procedures Procedure Name Priority Date/Time Associated Diagnosis Comments SCREENING MAMMOGRAM BILATERAL W JEAN-CLAUDE Schedule Routine, Read Routine (OP Routine) 01/11/2025 9:26 AM CAMPUS SECURITY OFFICER Well woman exam HIGH RISK HPV DNA DETECTION WITH GENOTYPING Routine 09/26/2023 2:26 PM CDT Well woman exam from Last 3 Months or Most Recently Relevant to Health Maintenance Results * Screening Mammogram Bilateral W Jean-Claude (01/11/2025 9:26 AM CAMPUS SECURITY OFFICER) Anatomical Region Laterality Modality Breast Bilateral Mammography Impressions 01/13/2025 8:41 AM CAMPUS SECURITY OFFICER BI-RADS ATLAS category (overall): 1 - Negative There is no mammographic evidence of malignancy. A 1 year screening mammogram is recommended. The patient has been or will be contacted. We recommend annual screening mammography for women at average risk of breast cancer beginning at age 40, based on guidelines of the [place] [employer] (ACR Practice Parameter for the Performance of Screening and Diagnostic Mammography) and [place] [employer]. For women with and elevated risk of breast cancer, please refer to the ACR Practice Parameter for specific screening recommendations. The patient will be entered into a reminder system with a target due date of 1 year for her next screening exam. Narrative 01/13/2025 8:41 AM CAMPUS SECURITY OFFICER Screening Mammogram Bilateral W Jean-Claude: 01/11/25 The [...] Detected NISHANT OAKLEY Comment:Testing performed by : [facility], [address] [place]., [address] HPV HR 18 Not Detected Not Detected NISHANT OAKLEY Comment:Testing performed by : [facility], [address] [place]., [address] HPV HR Non 16/18 Not Detected Not [...] this test have been verified by the [facility] Molecular Infectious Disease laboratory. Correlate with separately reported cytology results, as applicable. Interpretive data last revised 23 Testing performed by: [facility], [address] [place]., [address] Endocervical 09/26/2023 2:26 PM CDT 09/29/2023 2:59 PM CDT Narrative NISHANT OAKLEY - 09/30/2023 2:22 AM CDT Clinical history and diagnosis->routine Number of vials->1 Testing type->Screening Last menstrual period (date if known)->08/03/2023 Agata Galvez MD LAB BODY FLUIDS AND STOOLS ORDERABLES Final Result NISHANT OAKLEY [address] [facility] Department [place] [address] from Last 3 Months or Most Recently Relevant to Health Maintenance Insurance [place] Care Teams Rotary Lithographic Press Operator Relationship Specialty Start Date End Date Margie Newton MD [address] [place] [address] PCP - General Family Practice 11/23/22 Yael Brothers NP Obstetrics and Gynecology 11/23/22
--- OUTSIDE RECORDS SUMMARY | 2025-06-09 01:59 | XMS_ITS | Encounter Summary ---
Author Organization [facility] Address [facility] [place] [address] Care Team Providers Care Side Seam Tender Name Role Phone Saad Soria MD Primary Care Provider [phone] Margie Newton MD Primary Care Provider [phone] Encounter Details Date Type Department Care Team (Late st Contact Info) Description 12/26/2019 MyChart Message Enc [facility] Family Medicine [facility] [address] [place] [phone] Saad Soria MD [address] [address] RE: Other Social History Tobacco [...] Sex Assigned at Female 12/13/2024 4:26 PM GAS STATION CLERK Legal Sex Female 8:27 PM CDT Gender Identity Female 12/15/2021 5:23 AM GAS STATION CLERK Sexual Orientation Straight 12/15/2021 5: 23 AM GAS STATION CLERK documented as of this encounter Plan of Treatment Upcoming Encounters Date Type Department Care Team (Late st Contact Info) Description 10/02/2025 1:30 PM GAS STATION CLERK Office Visit [facility] [address] [facility] [place] [address] Deisi Haji MD [address] [facility] [address] [place] [address] documented as of this encounter Visit Diagnoses Not on filedocumented in this encounter Care Teams Side Seam Tender Relationship Specialty Start Date End Date Saad Soria MD PCP - General FAMILY PRACTICE 12/03/19 05/26/22 Margie Newton MD [address] [place] [address] PCP - General FAMILY PRACTICE 05/27/22 documented as of this encounter
--- OUTSIDE RECORDS SUMMARY | 2025-06-09 01:59 | XMS_ITS | Encounter Summary ---
Author Organization [facility] Address [facility] [place] [address] Care Team Providers Care Creative Perfumer Name Role Phone Margie Newton MD Primary Care Provider [phone] Encounter Details Date Type Department Care Team (Latest Contact Info) Description 04/10/2023 SocialVest Message Enc [facility] Family Medicine [facility] [address] [place] [address] Margie Newton MD [address] [place] [address] [employer] Interactions Social History Tobacco Use [...] Sex Assigned at Female 12/13/2024 4:26 PM SPINNER HAND Legal Sex Female 8:27 PM CDT Gender Identity Female 12/15/2021 5:23 AM SPINNER HAND Sexual Orientation Straight 12/15/2021 5: 23 AM SPINNER HAND COVID-19 Exposure Response Date Recorded In the last 10 days, have yo u been in contact with someone who was confirmed or suspected to have Coronavirus/COVID-19? No / Unsure 03/28/2023 8:06 AM CDT documented as of this encounter Plan of Treatment Upcoming Encounters Date Type Department Care Team (Late st Contact Info) Description 10/02/2025 1:30 PM SPINNER HAND Office Visit [facility] [address] [place] [address] Deisi Haji MD [address] [facility] [address] [place] [address] documented as of this encounter Visit Diagnoses Not on filedocumented in this encounter Additional Health Concerns Assessment Noted Time PHQ-9 Depression Total Score: 13 023 8:13 AM CDT documented as of this encounter Care Teams Creative Perfumer Relationship Specialty Start Date End Date Margie Newton MD [address] [place] [address] PCP - General FAMILY PRACTICE 05/27/22 documented as of this encounter
--- OUTSIDE RECORDS SUMMARY | 2025-06-09 02:00 | XMS_ITS | Clinical Summary ---
Author Organization [facility] Address [address] [place] [address] Care Team Providers Care Swage Tender Name Role Phone Margie Newton MD Primary Care Provider [phone] Allergies No known active allergies Medications aspirin EC 81 MG tablet Take 1 tablet (81 mg total) by mouth daily. Active famotidine 20 MG tablet Take 1 tablet (20 mg total) by mouth daily as needed. Active nystatin powder 11/30/19 21 Active Roulette-3 Fatty Acids (OMEGA-3 2100) 1050 MG Cap [...] ALLERGY 24HR OR) Active Cholecalciferol 50 MCG (1999 UT) Cap Taking once daily Active Azelastine-Fluticas [...] times daily. APPLY TO AFFECTED AREA Active tirzepatide (ZEPBOUND) 5 MG/0.5ML injection Inject 5 mg into the skin once a week. Active estradiol (ESTRACE) 0.1 MG/GM vaginal cream INSERT 1/2 GRAM APPLIED DIRECTLY TO URETHRA NIGHTLY DIRECTED 04/03/20 25 Active MOUNJARO 5 MG/0.5ML injection Will start in May - change due to insurance 04/30/20 Active Active Problems Problem Noted Date Diagnosed [...] stone on left side 08/14/2021 Vascular ring ([facility] 12/10/2020 Status post hysteroscopic polypectomy 11/12/2020 Uterine polyp 11/12/2020 Current moderate episode of major depressive disorder without prior episode 12/16/2019 Allergy to cats 12/16/2019 Dyslipidemia 02/23/2018 [...] She is going to call to [facility] to see if they supply the mask that she currently has. She will call us back to let us know if she would like orders for supplies sent to them. Cardiomyopathy ([facility]) 07/15/2016 Overview (09/07/2023): Secondary cardiomyopathy Hyperlipidemia 07/15/2016 Benign hypertension 07/15/2016 Anxiety 07/15/2016 Dyspnea on exertion 07/15/2016 Hemorrhoids 07/15/2016 History of depression 07/15/2016 Migraine 07/15/2016 Obesity 07/15/2016 Pneumonia 07/15/2016 Cardiomyopathy ([facility]) 07/15/2016 Gastroesophageal reflux disease 07/15/2016 Asthma ([facility]) 07/15/2016 Palpitations 04/12/2014 Overview (10/19/2020): PALPITATIONS Premature atrial contraction 04/12/2014 Overview (10/19/2020): ATRIAL PREMATURE BEATS Ventricular premature beats 04/12/2014 Overview (10/19/2020): PVCs Primary cardiomyopathy ([facility]) 014 Overview (10/19/2020): IDIOPATHIC CARDIOMYOPATHY Primary cardiomyopathy (CMS/[facility]) 014 Overview (03/10/2021): IDIOPATHIC CARDIOMYOPATHY Palpitations 04/12/2014 Overview (03/10/2021): PALPITATIONS Premature atrial contraction 04/12/2014 Overview (03/10/2021): ATRIAL PREMATURE BEATS Ventricular premature beats 04/12/2014 Overview (03/10/2021): PVCs Cardiomyopathy ([facility]) 01/26/2000 Encounters Date Type Department Care Team Description 05/27/2025 Telephone [facility], [address] [address] Ileana Haji MD Surgical Clearance 05/19/2025 Results Follow-Up [facility], [address] [address] Shikha Barton RN USE ECHOCARDIOGRAM W CON 05/15/2025 3:10 PM CDT - 05/15/2025 11:59 PM CDT Hospital Encounter [facility] [place] [address] Ileana Haji MD Discharge Disposition: Home or Self Care (Routine Discharge) 05/14/2025 3:40 PM CDT Office Visit [facility] [id number] [place] [address] Margie Newton MD Obesity; Hyperlipidemia; Hyperglycemia 05/14/2025 Travel 04/24/2025 Telephone [facility] [address] [place] [address] Ileana Haji MD Surgical Clearance 04/03/2025 12:30 PM CDT Office Visit [facility], [facility] [address] [place] [address] Ileana Haji MD Cardiomyopathy 04/03/2025 Travel from Last 3 Months Immunizations Immunization Administration Dates Next Due Afluria 36 MONTHS+ [...] Date Recorded Patient Health Questionnaire-2 Score 1 05/14/2025 Comments No Sex and Gender Information Value Date Recorded Sex Assigned at Female 12/13/2024 4:26 PM TEMPLATE CUTTER Legal Sex Female 8:27 PM CDT Gender Identity Female 12/15/2021 5:23 AM TEMPLATE CUTTER Sexual Orientation Straight 12/15/2021 5: 23 AM TEMPLATE CUTTER Last Filed Vital Signs Vital Sign Reading Time Taken Comments Blood Pressure 126/78 05/14/2025 4:[address] Garcia manual read Pulse 67 05/14/2025 4:11 PM CDT Temperature 36.1 C (96.9 F) 05/14/2025 4:11 PM CDT Respiratory Rate 24 05/14/2025 4:11 PM CDT Oxygen Saturation 100% 05/14/2025 4:1 1 PM CDT Inhaled Oxygen Concentration - - Weight 109 kg (240 lb 6.4 oz) 05/14/2025 4:11 PM CDT Height 162.6 cm (5' 4) 05/14/2025 4:11 PM CDT Body Mass Index 41.26 05/14/2025 4:11 PM CDT Plan of Treatment Upcoming Encounters Date Type Department Care Team (Late st Contact Info) Description 10/02/2025 1:30 PM TEMPLATE CUTTER [facility] [address] [place] [address] Ileana Haji MD [facility] [address] [place], [place] [address] Health Maintenance Due Date Last Done Comments [...] Completed 09/03/2024, , 09/23/2022, Additional history exists Pneumococcal Vaccine: Pediatrics (0 to 5 Years) and At-Risk Patients (6 to 49 Years) Completed 10/11/2024, 08/28/2017 PHQ-2 (Physician [place]) Completed 05/14/2025 Meningococcal B Vaccine Aged Out No l onger eligible based on patient's age to complete this topic Meningococcal Vaccine Aged Out No em brad eligible based on patient's age to complete this topic RSV Immunizations Under 20 Months Aged Out No longer eligible based on patient's age to complete this topic Procedures Procedure Name Priority Date/Time Associated Diagnosis Comments USE ECHOCARDIOGRAM W CON Routine 025 5:13 PM CDT Cardiomyopathy ([facility]) Non-rheumatic mitral regurgitation HEMOGLOBIN, GLYCOSYLATED Routine 05/14/2025 Hyperglycemia COLLECT.CAPILLARY (FNGR,HEEL,EAR) Routine 05/14/2025 Hyperglycemia ELECTROCARDIOGRAM (NON MIDMARK ACQUIRED) Routine 04/03/2025 12:37 PM CDT Cardiomyopathy ([facility]) MAMMOGRAM GENERIC (SCAN ORDER) 12/16/2023 from Last 3 Months or Most Recently Relevant to Health Maintenance Results * USE ECHOCARDIOGRAM W CON (05/15/2025 5:13 PM CDT) Anatomical Region Laterality Modality NA Echocardiogram 05/15/2025 3:27 PM CDT Narrative 05/19/2025 11:28 AM CDT Echocardiography Report Pat.Name: ABA JACKSON Pat.ID: [id number] St.Date: 05/15/2025 Refer.MD: [id number] COLETTE TEJEDA EWDPROV EWDPROV Exam Time: 3:27:00 PM Study Type:ECHO WITH CARDIAC DOPPLER COMP Height: 64 in Weight: 245 lb BSA: 2.13 m2 Age: 3 1975,50Y Sex: F BP: 125/77 HR: 60 bpm Sonogrphr: Yomaira Martinez Pat. Stat.:Outpatient Reason for Study:Mitral regurgitation Procedures: 2D, M-mode, Doppler, Color Flow, Definity was used to enhance endocardial definition. The study quality is technically difficult. Race: W ++++++++++++++++++++++++++++++++++++ SUMMARY: ++++++++++++++++++++++++++++++++++++ The left ventricular size is mildly enlarged. Estimated left ventricular ejection fraction is 55-60%. Mild concentric left ventricular hypertrophy. Left ventricular diastolic function is normal. The right ventricular size is normal. Right ventricular systolic function is mildly depressed. Known previous VSD repair, patient 3 years of age. No signs of residual VSD. The left atrial volume is normal ( less than 34 ml/M2). Right atrial size is normal. The peak pulmonary artery systolic pressure is estimated to be approximately 45 mmHg. Mild mitral regurgitation. ++++++++++++++++++++++++++++++++++++ FINDINGS: ++++++++++++++++++++++++++++++++++++ LV: The left ventricular size is mildly enlarged. Estimated left ventricular ejection fraction is 55-60%. Mild concentric left ventricular hypertrophy. Left ventricular diastolic function is normal. RV: The right ventricular size is normal. Right ventricular systolic function is mildly depressed. IVS: Known previous VSD repair, patient 3 years of age. No signs of residual VSD. LA: The left atrial volume is normal ( less than 34 ml/M2). RA: Right atrial size is normal. IAS: Atrial septum appears intact. BONNIE: No evidence of pericardial effusion. AO: Aortic root is normal. The aortic root measures 3.8 cm. PA: The peak pulmonary artery systolic pressure is estimated to be approximately 45 mmHg. Estimated right atrial pressure of 15 mmHg. SVn: Inferior vena cava is severely enlarged. AV: No evidence of aortic valve stenosis. No evidence of aortic valve regurgitation. MV: Mild mitral regurgitation. No evidence of mitral stenosis. PV: No evidence of pulmonic valve stenosis. No evidence of pulmonic regurgitation. TV: Trace tricuspid regurgitation. No evidence of tricuspid valve stenosis. ++++++++++++++++++++++++++++++++++++ MEASUREMENTS: ++++++++++++++++++++++++++++++++++++ DOPPLER LVOT LVOTpkPG 3 mmHg LVOTmnPG 2 mmHg LVOTpkVel 85 cm/s (70-110) LVOT SV 89 ml LVOT TVI 19.8 cm AV Forward Flow AV TVI 35 cm AV pkPG 6 mmHg AV pkVel 124 cm/s (100-170) Area (TVI) 2.56 cm2 (3-5)* AV mnPG 4 mmHg Area ([place]) 3.1 cm2 (3-5) MV Forward Flow MV DeTm 125 msec MV E/A 1.1 MVA P1/2t 5.95 cm2 (4-6) MV pkE 92.5 cm/s (60-130) MV P1/2t 37 msec (30-60)+ MV pkA 80.9 cm/s PV Forward Flow PV pkVel 98.2 cm/s (60-90)* PV AC 130 msec PV pkPG 4 mmHg RVOT RVOTpkV 58.1 cm/s TV Regurg Flow TV pkPG 30 mmHg TV pkVel 272 cm/s (30-70)* Lat E' Lat e 12.6 cm/s Lat E/E' Lat E/e 7.3 Med E' Med e 7.4 cm/s Med E/E' Med E/e 12.5 Aortic Valve Aortic Valve Ar 1.2 Aortic Valve Ve 0.69 PV Antegrade Flow Acceleration Sl 435 cm/s2 Right Atrium Lopez's Disk 20 Right Ventricle Right Ventricle 6.53 cm/s 2D Left Ventricle LVIDd 5.5 cm (3.6-5.2)* LV ESV 76.9 ml LVIDs 3.7 cm (2.3-3.9) LV ESV 81.8 ml LngAxd 7.56 cm LVESV BP 79.9 ml LngAxd 8.34 cm LV EF 50.6 % LV EDV 156 ml LV EF 58.7 % LV EDV 198 ml LV EF BP 56.6 % LVEDV BP 184 ml LV SV 79 ml LngAxs 6.68 cm LV SV 116 ml LngAxs 6.78 cm LV SV BP 104 ml LVPW LVPWd 1.1 cm Ventricular Septum IVSd 1.2 cm Aorta Ao Rtd 3.8 cm (zsc 2.4)* Ao Asc 3.2 cm (zsc 2) LVOT LVOT 2.4 cm LVOTArea 4.52 cm2 Ratios IVS RA Single Plane Right Atrium MO 8.31 mm Right Atrium Sy 30.1 ml Right Atrium Sy 49.1 mm Right Atrium Sy 14.1 ml/m2 Right Atrium Sy 13.1 cm2 Right Ventricle Right Ventricle 39 mm Right Ventricle 27 mm Major [place] 66 mm MMODE TA Tricuspid Annul 12.8 mm <Electronic Signature> 05/19/2025 11:28 AM Ileana Haji M.D. Procedure Note Ileana Haji MD - 05/19/2025 Echocardiography Report Pat.Name: ABA JACKSON Pat.ID: [id number] .Date: 05/15/2025 Refer.: [id number] COLETTE TEJEDA EWDPROV EWDPROV Exam Time: 3:27:00 PM Study Type:ECHO WITH CARDIAC DOPPLER COMP Height: 64 in Weight: 245 lb BSA: 2.13 m2 Age: 3 1975,50Y Sex: F BP: 125/77 HR: 60 bpm Sonogrphr: Yomaira Martinez [facility] Pat. Stat.:Outpatient Reason for Study:Mitral regurgitation Procedures: 2D, M-mode, Doppler, Color Flow, Definity was used to enhance endocardial definition. The study quality is technically difficult. Race: W ++++++++++++++++++++++++++++++++++++ SUMMARY: ++++++++++++++++++++++++++++++++++++ The left ventricular size is mildly enlarged. Estimated left ventricular ejection fraction is 55-60%. Mild concentric left ventricular hypertrophy. Left ventricular diastolic function is normal. The right ventricular size is normal. Right ventricular systolic function is mildly depressed. Known previous VSD repair, patient 3 years of age. No signs of residual VSD. The left atrial volume is normal ( less than 34 ml/M2). Right atrial size is normal. The peak pulmonary artery systolic pressure is estimated to be approximately 45 mmHg. Mild mitral regurgitation. ++++++++++++++++++++++++++++++++++++ FINDINGS: ++++++++++++++++++++++++++++++++++++ LV: The left ventricular size is mildly enlarged. Estimated left ventricular ejection fraction is 55-60%. Mild concentric left ventricular hypertrophy. Left ventricular diastolic function is normal. RV: The right ventricular size is normal. Right ventricular systolic function is mildly depressed. IVS: Known previous VSD repair, patient 3 years of age. No signs of residual VSD. LA: The left atrial volume is normal ( less than 34 ml/M2). RA: Right atrial size is normal. IAS: Atrial septum appears intact. BONNIE: No evidence of pericardial effusion. AO: Aortic root is normal. The aortic root measures 3.8 cm. PA: The peak pulmonary artery systolic pressure is estimated to be approximately 45 mmHg. Estimated right atrial pressure of 15 mmHg. SVn: Inferior vena cava is severely enlarged. AV: No evidence of aortic valve stenosis. No evidence of aortic valve regurgitation. MV: Mild mitral regurgitation. No evidence of mitral stenosis. PV: No evidence of pulmonic valve stenosis. No evidence of pulmonic regurgitation. TV: Trace tricuspid regurgitation. No evidence of tricuspid valve stenosis. ++++++++++++++++++++++++++++++++++++ MEASUREMENTS: ++++++++++++++++++++++++++++++++++++ DOPPLER LVOT LVOTpkPG 3 mmHg LVOTmnPG 2 mmHg LVOTpkVel 85 cm/s (70-110) LVOT SV 89 ml LVOT TVI 19.8 cm AV Forward Flow AV TVI 35 cm AV pkPG 6 mmHg AV pkVel 124 cm/s (100-170) Area (TVI) 2.56 cm2 (3-5)* AV mnPG 4 mmHg Area ([place]) 3.1 cm2 (3-5) MV Forward Flow MV DeTm 125 msec MV E/A 1.1 MVA P1/2t 5.95 cm2 (4-6) MV pkE 92.5 cm/s (60-130) MV P1/2t 37 msec (30-60)+ MV pkA 80.9 cm/s PV Forward Flow PV pkVel 98.2 cm/s (60-90)* PV AC 130 msec PV pkPG 4 mmHg RVOT RVOTpkV 58.1 cm/s TV Regurg Flow TV pkPG 30 mmHg TV pkVel 272 cm/s (30-70)* Lat E' Lat e 12.6 cm/s Lat E/E' Lat E/e 7.3 Med E' Med e 7.4 cm/s Med E/E' Med E/e 12.5 Aortic Valve Aortic Valve Ar 1.2 Aortic Valve Ve 0.69 PV Antegrade Flow Acceleration Sl 435 cm/s2 Right Atrium Lopez's Disk 20 Right Ventricle Right Ventricle 6.53 cm/s 2D Left Ventricle LVIDd 5.5 cm (3.6-5.2)* LV ESV 76.9 ml LVIDs 3.7 cm (2.3-3.9) LV ESV 81.8 ml LngAxd 7.56 cm LVESV BP 79.9 ml LngAxd 8.34 cm LV EF 50.6 % LV EDV 156 ml LV EF 58.7 % LV EDV 198 ml LV EF BP 56.6 % LVEDV BP 184 ml LV SV 79 ml LngAxs 6.68 cm LV SV 116 ml LngAxs 6.78 cm LV SV BP 104 ml LVPW LVPWd 1.1 cm Ventricular Septum IVSd 1.2 cm Aorta Ao Rtd 3.8 cm (zsc 2.4)* Ao Asc 3.2 cm (zsc 2) LVOT LVOT 2.4 cm LVOTArea 4.52 cm2 Ratios IVS RA Single Plane Right Atrium MO 8.31 mm Right Atrium Sy 30.1 ml Right Atrium Sy 49.1 mm Right Atrium Sy 14.1 ml/m2 Right Atrium Sy 13.1 cm2 Right Ventricle Right Ventricle 39 mm Right Ventricle 27 mm Major [place] 66 mm MMODE TA Tricuspid Annul 12.8 mm <Electronic Signature> 05/19/2025 11:28 AM Ileana Haji M.D. Ileana Haji MD ECHO Final Resul t * A1C (BACK OFFICE) (05/14/2025) HGB A1C 4.8 % HOMERO KAPLAN 05/14/2025 Margie Newton MD LABORATORY Final Result Performing Organization Address City/[facility] Co de Phone Number [facility]LAN[facility] [address] [place] [address], [place] [phone] * COLLECT.CAPILLARY (FNGR,HEEL,EAR) (05/14/2025) Margie Newton MD PROCEDURES-UNRESULTED Final Resu lt Performing Organization Address City/[facility] Co de Phone Number [facility] * ELECTROCARDIOGRAM (04/03/2025 12:37 PM CDT) 04/03/2025 12:3 7 PM CDT Narrative [facility] - 04/07/2025 7:51 AM CDT [facility] Test Date: 2025-04-03 Pat Name: ABA GONZALEZMike Department: 112 Room: Gender: Female Industrial Photographer: : 1975 Requested By: ILEANA HAJI Order Number: [id number] Reading MD: Ileana Haji Measurements Intervals [place] Rate: 71 P: 4 WV: 173 QRS: 78 QRSD: 196 T: 72 QT: 439 QTc: 478 Interpretive Statements SINUS RHYTHM RIGHT BUNDLE BRANCH BLOCK Procedure Note Ileana Haji MD - 04/07/2025 Rafi Coker [place] Test Date: 2025-04-03 Pat Name: ABAMICHELLE JACKSON Department: 112 Room: Gender: Female Industrial Photographer: : 1975 Requested By: ILEANA HAJI Order Number: [id number] Reading MD: Ileana Haji Measurements Intervals [place] Rate: 71 P: 4 WV: 173 QRS: 78 QRSD: 196 T: 72 QT: 439 QTc: 478 Interpretive Statements SINUS RHYTHM RIGHT BUNDLE BRANCH BLOCK Ileana Haji MD PROCEDURES-ORDERABLE NO STACEY RGE Final Result IFTIKHAR VARGAS * MAMMOGRAM GENERIC (SCAN ORDER) (12/16/2023) Anatomical Region Laterality Modality Other 12/16/2023 [facility] Scanned SCANNING Final Resu lt from Last 3 Months or Most Recently Relevant to Health Maintenance Insurance Care Teams Swage Tender Relationship Specialty Start Date End Date Margie Newton MD [address] [place] [address] PCP - General FAMILY PRACTICE 05/27/22
--- OUTSIDE RECORDS SUMMARY | 2025-06-09 02:00 | XMS_ITS | Data Portability ---
Author Organization [facility] OFFICE Address [address] [place] [address] Care Team Providers Care Injection Operator Name Role Phone BRENT MUNOZ Primary Care Provider Assessment No assessment recorded. Plan of Treatment [...] By Organization Details Last Modified Time 11/30/2022 97857 Weight loss 20 pounds Exercise advised Low cholesterol diet advised Low sodium diet advised. [email or web address] Not available 11/30/2022 15:39:01 05/31/2023 [id number] Weight loss 20 pounds Exercise advised Low cholesterol diet advised Low sodium diet advised. [email or web address] Not available 05/31/2023 17:00:38 05/21/2024 [id number] Weight loss 20 pounds Exercise advised Low cholesterol diet advised Low sodium diet advised. [email or web address] Not available 05/21/2024 18:44:28 Reason for Referral None Reported. Results Created Date Observation Date Name Description Value Unit Range Abnormal Flag Note LastModifiedBy Organization Detail LastModifiedTime 12/02/19 23 11/30/2022 elect roseann diogr am No observ ation record ed. [email or web address] Not Available 2022 09:33:09 07/07/20 23 07/06/2023 , echo ardio gram No observ ation record ed. [email or web address] [facility] [address], [place], [address], 07/08/2023 14:06:34 12/06/19 24 12/05/2023 elect rocar diogr am No observ ation [...] Address Organization Details Recorded Time Hyperlip idemia 17352332 Completed 201502/23/2018 Brittany johnson [place] - [facility] 8 14:40:31 Benign hyperten lico 60671949 Completed 201502/23/2018 Brittany johnson [place] - [facility] 8 14:40:16 Asthma 107407273 Completed 201508/27/2018 Shauna johnson [place] - [facility] 8 11:21:29 Migraine 57272923 Active 2015 [facility] 6 08:01:36 History of depressi on 767548938 [facility] Hemorrho ids 77414846 Active 2015 [facility] 6 08:02:20 Gastroes ophageal reflux disease 070918006 Completed 201508/27/2018 Shauna Cordoba [facility] 8 11:21:33 Pneumoni a 940574877 Active 2015 [facility] 6 08:04:16 Morbid obesity 690455521 Active 2015 [facility] 6 08:04:42 Anxiety 42474303 Active 2015 [facility] 6 08:05:05 Dyspnea on exertion 60914250 Active 2015 Phuong Ontiverosabi [facility] 6 01:44:32 Cardiomy opathy 76548135 Active 2015 Secondary cardiomyo grace Phuong Ontiverosabi [facility] 6 01:51:15 Obstruct jeffry sleep apnea syndrome 94041470 Active 2016 [facility] 7 15:08:31 [facility] hyperten lico 24940732 Active 2017 Brittany Goodwin [facility] 8 14:40:26 Dyslipid emia 147360011 Active 2017 Brittany Goodwin [facility] 8 14:40:37 Notes:secondary cardiomypath y Problem Notes None recorded. Procedures Surgical History Date Name Laterality Status Provider Name and Address Organization Details Recorded Time Tonsillecto my/Adenoide ctomy completed Vanesa Gupta [facility] 07/15/2016 16:32:43 Imaging Results None recorded. Procedure Notes None recorded. Medical Equipment None Reported. Allergies No known drug allergies Medications Name Sig Start Date Stop Date Status Note LastModified by Organization Details LastModified Time amoxicilli n 500 mg capsule 07/18 completed Not Available Not Available Not Available medroxypro gesterone 10 mg tablet TAKE 2 TABLETS BY MOUTH EVERY DAY DIRECTED ,TAKE PREGNANC Y TEST BEFORE STARTING TO ENSURE NEGATIVE 05/27 completed Not Available Not Available Not Available carvedilol 25 mg tablet TAKE 1 TABLET BY MOUTH TWICE A DAY active Not Available Not Available No t Available venlafaxin e ER 37.5 mg capsule,ex tended release 24 hr TAKE 1 CAPSULE BY MOUTH EVERY DAY 08/31 completed Not Available Not Available Not Available carvedilol 6.25 mg tablet TAKE 1 TABLET BY MOUTH TWICE A DAY 05/27 completed Not Available Not Available Not Available doxycyclin e hyclate 100 mg capsule 08/14 completed Not Available Not Available Not Available cefuroxime axetil 250 mg tablet 07/18 completed Not Available Not Available Not Available carvedilol 12.5 mg tablet TAKE 1 TABLET BY MOUTH TWICE A DAY WITH FOOD 05/27 completed Not Available Not Available Not Available oxybutynin chloride ER 10 mg tablet,ext ended release 24 hr TAKE 1 TABLET BY MOUTH EVERY DAY active Not Available Not Available No t Available azithromyc in 250 mg tablet 02/26 completed Not Available Not Available Not Available miconazole nitrate 2 % topical cream APPLY TO AFFECTED AREA TWICE A DAY active Not Available Not Available No t Available fluconazol e 150 mg tablet TAKE 1 TABLET BY MOUTH EVERY THIRD DAY FOR 3 DOSES. active Not Available Not Available No t Available benzonatat e 200 mg capsule TAKE 1 CAPSULE BY MOUTH THREE TIMES A DAY FOR 10 DAYS active Not Available Not Available No t Available valacyclov ir 1 gram tablet Take 1 tablet as needed by oral route for 2 days. 08/31 completed Not Available Not Available Not Available epinephrin e (Jr) 0.15 mg/0.3 mL injection, auto-injec tor 07/15 completed Not Available Not Available Not Available meloxicam 15 mg tablet TAKE 1 TABLET BY MOUTH EVERY DAY 12/05 completed Not Available Not Available Not Available lisinopril 20 mg tablet Take 1 tablet every day by oral route as directed . 12/05 completed Not Available Not Available Not Available sertraline 100 mg tablet TAKE 1 TABLET BY MOUTH EVERY DAY 05/21 completed Not Available Not Available Not Available estradiol 0.1 mg/24 hr semiweekly transderma l patch APPLY 2 PATCHES TO SKIN EVERY 3 DAYS DIRECTED 05/27 completed Not Available Not Available Not Available valacyclov ir 500 mg tablet TAKE 1 TABLET (500 MG) BY MOUTH TWICE DAILY FOR 3 DAYS. 12/05 completed Not Available Not Available Not Available sildenafil 25 mg tablet INSERT 1 TABLET IN THE VAGINA FOUR TIMES DAILY 05/27 completed Not Available Not Available Not Available carvedilol 3.125 mg tablet 05/27 completed Not Available Not Available Not Available ketorolac 10 mg tablet TAKE 1 TABLET (10 MG TOTAL) BY MOUTH 4 (FOUR) TIMES DAILY NEEDED FOR PAIN. 05/27 completed Not Available Not Available Not Available quinapril 10 mg tablet TAKE 1 TABLET BY MOUTH EVERY DAY 05/27 completed Not Available Not Available Not Available progestero ne 50 mg/mL intramuscu lar oil 05/27 completed Not Available Not Available Not Available tamsulosin 0.4 mg capsule TAKE 1 CAPSULE (0.4 MG TOTAL) BY MOUTH DAILY FOR 10 DAYS. 05/27 completed Not Available Not Available Not Available estradiol valerate 20 mg/mL intramuscu lar oil 05/27 completed Not Available Not Available Not Available meclizine 25 mg tablet TAKE 1 TABLET BY MOUTH THREE TIMES A DAY NEEDED 05/21 completed Not Available Not Available Not Available hydrocodon e 7.5 mg-acetami nophen 325 mg tablet 07/18 completed Not Available Not Available Not Available cephalexin 500 mg capsule TAKE 1 CAPSULE BY MOUTH THREE TIMES DAILY 01/21 completed Not Available Not Available Not Available ferrous sulfate 325 mg (65 mg iron) tablet TAKE 1 TABLET BY MOUTH EVERY DAY WITH BREAKFAS T 05/21 completed no longer taking per pt 3 DC Not Available Not Available Not Available ropinirole 0.5 mg tablet TAKE 1 TABLET BY MOUTH 3 TIMES DAILY. 05/27 completed Not Available Not Available Not Available oxycodone 5 mg capsule 02/26 completed Not Available Not Available Not Available nystatin-t riamcinolo ne 100,000 unit/g-0.1 % topical cream 08/27 completed Not Available Not Available Not Available sertraline 25 mg tablet TAKE 1 TABLET BY MOUTH EVERY DAY 05/21 completed Not Available Not Available Not Available omeprazole 20 mg capsule,de layed release 07/18 completed Not Available Not Available Not Available estradiol 2 mg tablet TAKE 1 TABLET BY MOUTH THREE TIMES A DAY DIRECTED 05/27 completed Not Available Not Available Not Available quinapril 20 mg tablet Take 1 tablet every day by oral route. 12/05 completed Not Available Not Available Not Available azelastine 137 mcg (0.1 %) nasal spray 07/18 completed Not Available Not Available Not Available methylpred nisolone 4 mg tablets in a dose pack TAKE 6 TABLETS ON DAY 1 DIRECTED ON PACKAGE AND DECREASE BY 1 TAB EACH DAY FOR A TOTAL OF 6 DAYS 12/05 completed Not Available Not Available Not Available albuterol sulfate HFA 90 mcg/actuat ion aerosol inhaler INHALE 1-2 INHALATI ONS BY MOUTH EVERY 4-6 HOURS NEEDED FOR WHEEZING X 10D active Not Available Not Available No t Available ketoconazo le 2 % topical cream APPLY TO AFFECTED AREA 3 TIMES A DAY active Not Available Not Available No t Available ondansetro n 4 mg disintegra ting tablet TAKE 1 TABLET BY MOUTH EVERY 8 HOURS NEEDED FOR NAUSEA 05/27 completed Not Available Not Available Not Available fluticason e propionate 50 mcg/actuat ion nasal spray,susp ension USE 1 SPRAY BY NASAL ROUTE DAILY FOR 30 DAYS active Not Available Not Available No t Available sertraline 50 mg tablet TAKE 1 TABLET BY MOUTH EVERY DAY 08/31 completed Not Available Not Available Not Available medroxypro gesterone 150 mg/mL intramuscu lar suspension INTRAMUS CULAR INJECT 150 MG INTRAMUS CULARLY EVERY 12 WEEKS 05/27 completed Not Available Not Available Not Available ramipril 5 mg capsule TAKE 1 CAPSULE BY MOUTH EVERY DAY 2024 active Not Available Not Available Not Avai lable amoxicilli n 875 mg-potassi um clavulanat e 125 mg tablet TAKE 1 TABLET BY MOUTH TWICE A DAY FOR 10 DAYS active Not Available Not Available No t Available Estrace 0.01% (0.1 mg/gram) vaginal cream 07/18 completed Not Available Not Available Not Available azithromyc in 500 mg tablet 08/14 completed Not Available Not Available Not Available rosuvastat in 10 mg tablet TAKE 1 TABLET BY MOUTH EVERYDAY AT BEDTIME active Not Available Not Available No t Available Prilosec OTC 20 mg tablet,del ayed release Take by oral route. 07/18 completed Not Available Not Available Not Available bupropion HCl XL 300 mg 24 hr tablet, extended release TAKE 1 TABLET BY MOUTH EVERY DAY 11/30 completed pt no longer taking per pt 3 DC Not Available Not Available Not Available bupropion HCl XL 150 mg 24 hr tablet, extended release TAKE 1 TABLET BY MOUTH EVERY DAY IN THE MORNING active Not Available Not Available No t Available nitrofuran toin monohydrat e/macrocry stals 100 mg capsule 08/14 completed Not Available Not Available Not Available duloxetine 30 mg capsule,de layed release TAKE 1 CAPSULE BY MOUTH EVERY DAY 05/27 completed Not Available Not Available Not Available Fish Oil 09/26 completed Not Available Not Available Not Available biotin 05/19 completed Not Available Not Available Not Available calcium citrate qd 05/19 completed Not Available Not Available Not Available cetirizine 10 mg 1 tab as needed 07/10 completed Not Available Not Available Not Available multivitam in 1 tab qd 02/26 completed Not Available Not Available Not Available Asprin Ec Low Dose 1 tab qd 05/19 completed Not Available Not Available Not Available Optisource 4 qd 05/27 completed Not Available Not Available Not Available ferrous sulfate 324 mg (65 mg iron) tablet,del ayed release Take 0.5 tablets every day by oral route. 01/21 completed Not Available Not Available Not Available levocetiri zine 05/27 completed Not Available Not Available Not Available Vitamin D3 50 mcg (2,000 unit) capsule Take 2 capsules every day by oral route. active Not Available Not Available No t Available azelastine 137 mcg-flutic asone 50 mcg/spray nasal spray SPRAY 1 SPRAY INTRANAS ALLY TWICE A DAY FOR 30 DAYS active Not Available Not Available No t Available BD Insulin Syringe Ultra-Fine 1 mL 31 gauge x 5/16 01/21 completed Not Available Not Available Not Available Auvi-Q 0.3 mg/0.3 mL injection, auto-injec tor INJECT INTO THE MUSCLE ONCE DIRECTED active Not Available Not Available No t Available brexpipraz ole Take 1 tablet daily 12/05 completed Not Available Not Available Not Available Vraylar 1.5 mg capsule TAKE 1 CAPSULE BY MOUTH DAILY. 05/31 completed Not Available Not Available Not Available Vraylar 3 mg capsule TAKE 1 CAPSULE BY MOUTH DAILY. 05/31 completed Not Available Not Available Not Available Trintellix 10 mg tablet TAKE 1 TABLET BY MOUTH EVERY DAY active Not Available Not Available No t Available vitamin B12 1,000 mcg-folic acid [address] 1 lozenge every day by sublingu al route. 01/21 completed Pt not taking - 07/10/20 20 Not Available Not Available Not Available Adult Aspirin Regimen 81 mg tablet,del ayed release Take 1 tablet every day by oral route. active Not Available Not Available No t Available Zepbound 2.5 mg/0.5 mL subcutaneo us pen injector INJECT 2.5 MG SUBCUTAN EOUSLY ONCE WEEKLY active Not Available Not Available No t Available Klayesta 100,000 unit/gram topical powder APPLY TO FOLDS 3 TIMES A DAY active Not Available Not Available No t Available Vitals Date Recorded Body height Body mass index (BMI) Body weight Heart rate Oxygen saturation Oxygen saturation in Arterial blood by Pulse oximetry Systolic And Diastolic Provider Name and Address Organization Details Last Updated DateTime 3 162.56 cm 42.4 kg/m2 518154. 32 g 63 /min 98 % 98 % 122/78 mm[Hg] Franchesca Epperson [facility] 3 15:19:38 Date Recorded Body height Body mass index (BMI) Body weight Heart rate Oxygen saturation Oxygen saturation in Arterial blood by Pulse oximetry Systolic And Diastolic Provider Name and Address Organization Details Last Updated DateTime 4 162.56 cm 44.1 kg/m2 780149. 24 g 62 /min 94 % 94 % 135/81 mm[Hg] Franca Crandall [facility] 4 16:01:41 Date Recorded Body height Body mass index (BMI) Body weight Heart rate Oxygen saturation Oxygen saturation in Arterial blood by Pulse oximetry Systolic And Diastolic Provider Name and Address Organization Details Last Updated DateTime 4 162.56 cm 44.1 kg/m2 164400. 24 g 72 /min 97 % 97 % 106/70 mm[Hg] Melanie Serna [facility] 4 18:19:05 Date Recorded Body height Body mass index (BMI) Body weight Heart rate Respiratory rate Oxygen saturation Oxygen saturation in Arterial blood by Pulse oximetry Systolic And Diastolic Provider Name and Address Organization Details Last Updated DateTime 3 162.56 cm 43.1 kg/m2 438093. 68 g 61 /min 16 /min 94 % 94 % 122/62 mm[Hg] Bobby Cedric [facility] 3 16:19:35 Date Recorded Body height Body mass index (BMI) Body weight Heart rate Oxygen saturation Oxygen saturation in Arterial blood by Pulse oximetry Systolic And Diastolic Provider Name and Address Organization Details Last Updated DateTime 4 162.56 cm 45.1 kg/m2 126973. 79 g 61 /min 97 % 97 % 136/75 mm[Hg] Franca Raz [facility] 4 18:26:14 Social History Question Answer Notes LastModified by [employer] Details LastModified Time Tobacco Smoking Status Never Smoker Vansea johnson [facility] 07/15/2016 16:35:42 What Was The Date Of Your Most Recent Tobacco Screening? 02/25/2019 Information n ot available 06/20/2019 How Much Tobacco Do You Smoke? No Information not available 01/18/2020 How Many Years Have You Smoked Tobacco? 0 Information not available 08/11/2017 Sex: Unknown Functional Status Question Answer Note LastModified by [employer] Details LastModified Time Do you or have you ever used smokeless tobacco? Never used smokeless tobacco Information not available 01/18/2020 Do you or have you ever used e-cigarettes or vape? Never used electronic cigarettes Information not available 01/18/2020 Mental Status None recorded. Family History Relationship Description Onset Age of this Age Resolved Age Notes LastModified by Organization Details LastModified Time Father Hypertensive disorder [email or web address] Not available 2015 16:35:12 Mother Hypertensive disorder [email or web address] Not available 2015 16:35:20 Mother Diabetes mellitus [email or web address] Not available 2015 16:35:39 Medical History Condition Response Depression Y Hyperlipidemia Y Asthma Y GERD/Reflux Y Hypertension Y Gynecological HistoryNo gynecological history recorded. Obstetrics History GPAL:G 0 P 0 0 0 0 Past Encounters Encounter ID Performer Location Encounter Start Date Encounter Closed Date Diagnosis/Indication Diagnosis SNOMED-CT Code Diagnosis ICD10 Code Diagnosis Note [id number] MD Kirt Jensen Office [address] [place] [address] 07/18/2016 10:37:03 07/19/2016 12:25:24 Benign hypertension 42840500 I10 Now well controlled Cardiomyopathy 89898209 I42.9 ef 40% NOW Dyspnea on exertion 6084 5006 R06.09 Morbid obesity 261219984 E66.01 Obstructiv e sleep apnea syndrome 95105331 G47.33 On CpapNeeds cpap FU [id number] MD Kirt Jensen Office [address] [place] [address] 01/16/2017 10:27:12 01/17/2017 13:32:11 Benign hypertension 58209920 I10 Now well controlled Cardiomyopathy 44449685 I42.9 ef 40% NOW Dyspnea on exertion 6084 5006 R06.09 Morbid obesity 880041002 E66.01 Obstructiv e sleep apnea syndrome 50065164 G47.33 On CpapNeeds cpap FU Right bund [place] block 85562792 I45.10 Dyslipidemia 789164678 E 78.5 Needs to keep LDL less than 100, and HDL more than 40. [id number] MD Kirt Jensen Office [address] [place] [address] 08/14/2017 11:58:18 08/14/2017 13:08:23 Benign hypertension 35988466 I10 Now well controlled Cardiomyopathy 81869403 I42.9 ef 40% NOW Dyspnea on exertion 6084 5006 R06.09 Morbid obesity 582193459 E66.01 20 lb. weight loss recommende d over the next 2 months. Obstructiv e sleep apnea syndrome 72066787 G47.33 On CpapNeeds cpap FU Right bund le branch block 57929336 I45.10 Dyslipidemia 569115422 E 78.5 Needs to keep LDL less than 100, and HDL more than 40. [id number] MD Kirt Jensen Office [address] [place] [address] 02/26/2018 11:11:06 02/26/2018 15:55:03 Benign hypertension 64089726 I10 Now well controlled Cardiomyopathy 57626889 I42.9 EF 40% now 02/26/18 Obtain echo to evaluate for structural /functiona l disease prior to follow up. Morbid obesity 044739136 E66.01 02/26/18 Had gastric sleeve surgery on 02/12/18 Obstructiv e sleep apnea syndrome 40032317 G47.33 On Cpap Dyslipidemia 225544519 E 78.5 02/21/18 LDL 153Needs to keep LDL less than 100, and HDL more than 40. Will get repeat FLP prior to next visit, order given. [id number] MD Kirt Jensen Office [address] [place] [address] 08/27/2018 10:57:58 08/27/2018 11:36:44 Benign hypertension 37386316 I10 Now well controlled Cardiomyopathy 00572789 I42.9 Had ECHO done in 06/04/18 showed normal global systolic function , EF 60-6% Continue maximal medical treatment. Morbid obesity 530198764 E66.01 Had gastric sleeve surgery on 02/12/18. Obstructiv e sleep apnea syndrome 98538957 G47.33 Pt is on CPAP and is compliant. Patient is benefittin g with CPAP therapy and will continue nightly use. Dyslipidemia 308359883 E 78.5 Needs to keep LDL less than 100, and HDL more than 40 08/18/18: TC 215, HDL 45, LDL 141, Tri 159 Want to diet control for now due her recent gastric sleeve and significan t weight loss. [id number] MD Kirt Jensen Office [address] [place] [address] 02/25/2019 10:42:27 02/25/2019 11:58:47 Benign hypertension 53698943 I10 Now well controlled Cardiomyopathy 32043365 I42.9 Had ECHO done in 06/04/18 showed normal global systolic function , EF 60-6% Continue maximal medical treatment. Morbid obesity 151859650 E66.01 Had gastric sleeve surgery on 02/12/18. Obstructiv e sleep apnea syndrome 58042609 G47.33 Pt is on CPAP and is compliant. Patient is benefittin g with CPAP therapy and will continue nightly use. Dyslipidemia 978928419 E 78.5 will add Crestor Atypical chest pain 1025 19141 R07.89 Treadmill Myoview Stress test, has high Wheaton Risk score. Has Known CAD, or CAD risk equivalent . To look for any ischemia. [id number] MD Kirt Jensen Office [address] [place] [address] 07/15/2019 11:47:29 07/15/2019 12:35:54 Benign hypertension 53567900 I10 Now well controlled . Cardiomyopathy 67348582 I42.9 Left ventricula r function as normalized [...] dilated. Continue maximal medical treatment. Morbid obesity 671189435 E66.01 Had gastric sleeve surgery on 02/12/18. Obstructiv e sleep apnea syndrome 77240585 G47.33 Pt is on CPAP and is compliant. Patient is benefittin g with CPAP therapy and will continue nightly use. Dyslipidemia 194858756 E 78.5 Started crestor 02/2019; will order [...] test. Normal LV systolic function. LVEF 50%. [id number] Harley Wiggins MD [facility] OFFICE [address] [place] [address] 01/21/2020 17:23:12 01/21/2020 21:31:53 Benign hypertension 24660350 I10 Now well controlled . Cardiomyopathy 55196485 I42.9 Left ventricula r function normalized . [...] dilated. Continue maximal medical treatment. Morbid obesity 799826189 E66.01 Had gastric sleeve surgery on 02/12/18. Obstructiv e sleep apnea syndrome 33825093 G47.33 Pt is on CPAP and is compliant. Patient is benefittin g with CPAP therapy and will continue nightly use. Dyslipidemia 942599703 E 78.5 Started crestor 02/2019 Needs to [...] Normal LV systolic function. LVEF 50%. Fatigue 67407365 R53.83 Will reduce Carvedilol from 6.25mg to 3.125 mg to see if that improves fatigue. [id number] Tito Johnson MD [facility] [address] [place] [address] 07/10/2020 09:10:45 07/10/2020 10:13:44 Benign hypertension 38110964 I10 07/10/2020N ow well controlled . Cardiomyopathy 39790702 I42.9 07/10/2020 Left ventricula r function normalized [...] dilated. Continue maximal medical treatment. Morbid obesity 114899927 E66.01 07/10/2020R emains obeseHad gastric sleeve surgery on 02/12/18. Obstructiv e sleep apnea syndrome 35757822 G47.33 07/10/2020P t is on CPAP and is not compliant. Encourage better compliance Dyslipidemia 086606261 E 78.5 07/10/2020 Rocio LDL 101. Encourage diet and exercise. Continue [...] Normal LV systolic function. LVEF 50%. Fatigue 52243109 R53.83 07/10/2020L ikely related to depression [id number] New Curran MD [facility] OFFICE [address] [place] [address] 05/27/2022 11:59:59 05/27/2022 13:41:18 Benign hypertension 87757031 I10 07/10/2020N ow well controlled . Cardiomyopathy 83209874 I42.9 07/10/2020 Left ventricula r function normalized [...] dilated. Continue maximal medical treatment. Morbid obesity 430950362 E66.01 07/10/2020R emains obeseHad gastric sleeve surgery on 02/12/18. Obstructiv e sleep apnea syndrome 23451428 G47.33 Pt is on CPAP and is not compliant. Encourage better compliance Dyslipidemia 426244129 E 78.5 Needs to keep LDL less than 70, and HDL more than 40Will get fasting lipids for follow up Dyspnea on exertion 6084 5006 R06.09 Improved. Will get echo report from [facility] 03/12/19 TDM-Negati ve stress test. Normal LV systolic function. LVEF 50%. Fatigue 61881538 R53.83 07/10/2020L ikely related to depression [id number] MD Kirt Jensen e Office [address] [place] [address] 08/31/2022 14:01:23 08/31/2022 15:31:45 Benign hypertension 73913288 I10 07/10/2020N ow well controlled . Cardiomyopathy 97258832 I42.9 07/10/2020 Left ventricula r function normalized [...] dilated. Continue maximal medical treatment. Morbid obesity 265582973 E66.01 07/10/2020R emains obeseHad gastric sleeve surgery on 02/12/18. Obstructiv e sleep apnea syndrome 42864219 G47.33 Pt is on CPAP and is not compliant. Encourage better compliance Dyslipidemia 919363425 E 78.5 Needs to keep LDL less than 70, and HDL more than 40Will get fasting lipids for follow up Dyspnea on exertion 6084 5006 R06.09 Improved. Will get echo report from [facility] 03/12/19 TDM-Negati ve stress test. Normal LV systolic function. LVEF 50%. Fatigue 77423675 R53.83 07/10/2020L ikely related to depression Depressive disorder 4585 2584 F32.A treatment and evaluation by primary care doctor [id number] MD Kirt Jensen Office [address] [place] [address] 11/30/2022 14:54:18 11/30/2022 15:41:39 Benign hypertension 66500886 I10 07/10/2020N ow well controlled . Cardiomyopathy 67230169 I42.9 07/10/2020 Left ventricula r function normalized [...] dilated. Continue maximal medical treatment. Morbid obesity 877640085 E66.01 07/10/2020R emains obeseHad gastric sleeve surgery on 02/12/18. Obstructiv e sleep apnea syndrome 03361015 G47.33 Pt is on CPAP and is not compliant. Encourage better compliance Dyslipidemia 253884164 E 78.5 Needs to keep LDL less than 70, and HDL more than 40Will get fasting lipids for follow up Dyspnea on exertion 6084 5006 R06.09 Improved. Will get echo report from [facility] 03/12/19 TDM-Negati ve stress test. Normal LV systolic function. LVEF 50%. Fatigue 72266973 R53.83 07/10/2020L ikely related to depression Depressive disorder 5575 1525 F32.A treatment and evaluation by primary care doctor [id number] New Curran MD Erin OFFICE [address] [place] [address] 05/31/2023 15:41:40 05/31/2023 17:22:45 Benign hypertension 50815813 I10 Now well controlled . Cardiomyopathy 70911730 I42.9 Left ventricula r function normalized . euvolemia, asymptomat ic today.repo rts fatigue with coreg.Obta in echo to evaluate for structural /functiona l disease. Continue maximal medical treatment. Morbid obesity 152032480 E66.01 07/10/2020R emains obeseHad gastric sleeve surgery on 02/12/18. Obstructiv e sleep apnea syndrome 58085307 G47.33 Pt is on CPAP and is not compliant. Encourage better compliance Dyslipidemia 117210814 E 78.5 Needs to keep LDL less than 70, and HDL more than 40Will get fasting lipids for follow up Dyspnea on exertion 6084 5006 R06.09 Improved. Will get echo report from [facility] 03/12/19 TDM-Negati ve stress test. Normal LV systolic function. LVEF 50%. Fatigue 88799365 R53.83 Likely related to depression Depressive disorder 5458 7497 F32.A treatment and evaluation by primary care doctor [id number] New Curran MD Erin OFFICE [facility] [place] [address] 12/05/2023 15:31:13 12/05/2023 16:50:28 Benign hypertension 14197743 I10 Now well controlled . Cardiomyopathy 23361263 I42.9 Left ventricula r function normalized . euvolemia, asymptomat ic today.repo rts fatigue with coreg. Continue maximal medical treatment. Morbid obesity 186923672 E66.01 07/10/2020R emains obeseHad gastric sleeve surgery on 02/12/18. Obstructiv e sleep apnea syndrome 64012175 G47.33 Pt is on CPAP and is not compliant. Encourage better compliance Dyslipidemia 951634765 E 78.5 Needs to keep LDL less than 70, and HDL more than 40Will get fasting lipids for follow up Dyspnea on exertion 6084 5006 R06.09 Improved. Will get echo report from [facility] 03/12/19 TDM-Negati ve stress test. Normal LV systolic function. LVEF 50%. 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 Cardiomyopathy 59260962 I42.9 Left ventricula r function normalized . euvolemia, asymptomat ic today.repo rts fatigue with coreg. Continue maximal medical treatment. Morbid obesity 365599196 E66.01 07/10/2020R emains obeseHad gastric sleeve surgery on 02/12/18. Obstructiv e sleep apnea syndrome 26039220 G47.33 Pt is on CPAP and is not compliant. Encourage better compliance Dyslipidemia 564711384 E 78.5 Needs to keep LDL less [...] Normal LV systolic function. LVEF 50%. 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 Cardiomyopathy 21139489 I42.9 Left ventricula r function normalized . euvolemia, asymptomat ic today.repo rts fatigue with coreg. Continue maximal medical treatment. Morbid obesity 654580797 E66.01 07/10/2020R emains obeseHad gastric sleeve surgery on 02/12/18. Obstructiv e sleep apnea syndrome 42646541 G47.33 Pt is on CPAP and is not compliant. Encourage better compliance Dyslipidemia 021675209 E 78.5 Needs to keep LDL less than 70, and HDL more than 40Will get fasting lipids for follow up Fatigue 24837716 R53.83 Likely related to depression Depressive disorder 3548 9007 F32.A treatment and evaluation by primary care doctor Congenital heart disease 76431728 Q24.9 with anomaly of the Aorta no symptoms nowNo need for any further work up Syncope 776450952 R55 14 days event monitor Health Concerns Section Related Observation LastModified by Organization Detai ls LastModified Time None Recorded Concern Status LastModified by Organization Details LastModified Time None Recorded Advance Directives Directive None Recorded Payers Insurance Date Sequence Insurance Name Policy Number Policy Rosas Covered Member ID Rosas Member ID Guarantor Name 11/05/2024 1 [employer] (PPO) [id number] Damaris R Looser [id number] Damaris R Looser 11/05/2024 1 [facility] (PPO) [id number] Damaris R Looser [id number] Damaris R Looser 12/04/2024 1 [facility] (PPO) [id number] Damaris R Looser [id number] Damaris R Looser 11/05/2024 1 [facility] [id number] Damaris R Looser [id number] Damaris R Looser 11/05/2024 1 [employer] (PPO) [id number] Damaris R Looser [id number] Damaris R Looser 11/05/2024 1 [facility] (O) [id number] Damaris R Looser [id number] Damaris R Looser 11/05/2024 1 [employer] (PPO) [id number] Damaris R Looser [id number] Damaris R Looser Notes Date Note Type Note Provider Name and Address Organization Details Recorded Time 11/30/2022 text/html 11/30/21CC : Car diac follow up, dyspnea on [id number] years-old white woman with history of VSD [...] ALT 17 ALK PH 57lipid panel, blood [id number] 07/20/2019 CH 164 HDL 53 TR 118 LDL 90Attachment contains 2 Lab Results including: lipid panel, blood 02-16-2019 cholesterol 231,Triglycerides 139,HDL 54,LDL LIPID PANEL - cholesterol 231,Triglycerides 139,HDL 54,LDL 74335-69-2118 02/21/2018: creatine kinase : TC 215, HDL 45, LDL 141, Tri 159 02/21/18: TC 215, HDL 37, TG 127, LDL 43557: Na 140 ,K 4.1 ,CL 105 ,CO2 [...] No acute cardiopulmonary abnormality New Curran MD [address] [place], [address], [facility] 11/30/2022 15:39:14 05/31/2023 text/html 11/30/21CC : Car diac follow up, dyspnea on [id number] years-old white woman with history of VSD [...] ALT 17 ALK PH 57lipid panel, blood [id number] 07/20/2019 CH 164 HDL 53 TR 118 LDL 90Attachment contains 2 Lab Results including: lipid panel, blood 02-16-2019 cholesterol 231,Triglycerides 139,HDL 54,LDL LIPID PANEL - cholesterol 231,Triglycerides 139,HDL 54,LDL 77311-79-5823 02/21/2018: creatine kinase : TC 215, HDL 45, LDL 141, Tri 159 02/21/18: TC 215, HDL 37, TG 127, LDL 6647606/17/17: Na 140 ,K 4.1 ,CL 105 ,CO2 [...] cardiopulmonary abnormality New Curran MD [address] [facility], [place], [address], [place] - [facility] 05/31/2023 17:01:05 12/05/2023 text/html 01/09/24CC : Car diac follow up, [id number] years-old white woman with history of VSD [...] ALT 17 ALK PH 57lipid panel, blood [id number] 07/20/2019 CH 164 HDL 53 TR 118 LDL 90Attachment contains 2 Lab Results including: lipid panel, blood 02-16-2019 cholesterol 231,Triglycerides 139,HDL 54,LDL LIPID PANEL - cholesterol 231,Triglycerides 139,HDL 54,LDL 92899-36-5624 02/21/2018: creatine kinase : TC 215, HDL 45, LDL 141, Tri 159 02/21/18: TC 215, HDL 37, TG 127, LDL 3403206/17/17: Na 140 ,K 4.1 ,CL 105 ,CO2 [...] cardiopulmonary abnormality New Curran MD [address] [place], [address], [facility] 12/05/2023 16:41:27 05/21/2024 [...] ALT 17 ALK PH 57lipid panel, blood [id number] 07/20/2019 CH 164 HDL 53 TR 118 LDL 90Attachment contains 2 Lab Results including: lipid panel, blood 02-16-2019 cholesterol 231,Triglycerides 139,HDL 54,LDL LIPID PANEL - cholesterol 231,Triglycerides 139,HDL 54,LDL 75140-41-4951 02/21/2018: creatine kinase : TC 215, HDL 45, LDL 141, Tri 159 02/21/18: TC 215, HDL 37, TG 127, LDL 6650606/17/17: Na 140 ,K 4.1 ,CL 105 ,CO2 [...] chest 09/29/2018 No acute cardiopulmonary abnormality Rhoda johnson [place] - [facility] 09/12/2024 12:37:53 09/12/2024 [...] ALT 17 ALK PH 57lipid panel, blood [id number] 07/20/2019 CH 164 HDL 53 TR 118 LDL 90Attachment contains 2 Lab Results including: lipid panel, blood 02-16-2019 cholesterol 231,Triglycerides 139,HDL 54,LDL LIPID PANEL - cholesterol 231,Triglycerides 139,HDL 54,LDL 73674-80-8418 02/21/2018: creatine kinase : TC 215, HDL 45, LDL 141, Tri 159 02/21/18: TC 215, HDL 37, TG 127, LDL 23649: Na 140 ,K 4.1 ,CL 105 ,CO2 [...] cardiopulmonary abnormality New Curran MD [address] [place], [address], [facility] 09/12/2024 18:44:57 OBGyn Episode No OBEpisode recorded.
--- OUTSIDE RECORDS SUMMARY | 2025-06-09 02:00 | XMS_ITS | Encounter Summary ---
Author Organization [facility] Address [facility] [place] [address] Care Team Providers Care Customs Port Director Name Role Phone Saad Soria MD Primary Care Provider [phone] Margie Newton MD Primary Care Provider [phone] Encounter Details Date Type Department Care Team (Late st Contact Info) Description 12/22/2021 MyChart Message Enc [facility] - [place] [address] [place] [address] Saad Soria MD [address] [address] [place]op[place] Social History Tobacco Use [...] Sex Assigned at Female 12/13/2024 4:26 PM AUDITING MANAGER Legal Sex Female 8:27 PM CDT Gender Identity Female 12/15/2021 5:23 AM AUDITING MANAGER Sexual Orientation Straight 12/15/2021 5: 23 AM AUDITING MANAGER COVID-19 Exposure Response Date Recorded In the last month, have you been in contact with someone who was confirmed or suspected to have Coronavirus / COVID-19? No / Unsure 12/16/2021 6:53 AM AUDITING MANAGER documented as of this encounter Progress Notes * Sharron Stewart MA - 12/22/2021 3:17 PM CST Please advise, thank you. TING MANAGER documented in this encounter Plan of Treatment Upcoming Encounters Date Type Department Care Team (Late st Contact Info) Description 10/02/2025 1:30 PM AUDITING MANAGER Office Visit [facility] [address] [place] [address] Deisi Haji MD Three [facility] [address] [place] [address] documented as of this encounter Visit Diagnoses Not on filedocumented in this encounter Additional Health Concerns Assessment Noted Time PHQ-9 Depression Total Score: 0 09/01/20 21 9:38 AM CDT documented as of this encounter Care Teams Customs Port Director Relationship Specialty Start Date End Date Saad Soria MD PCP - General FAMILY PRACTICE 12/03/19 05/26/22 Margie Newton MD [address] [place] [address] PCP - General FAMILY PRACTICE 05/27/22 documented as of this encounter
--- OUTSIDE RECORDS SUMMARY | 2025-06-09 02:00 | XMS_ITS ---
Author Organization Unknown Allergies, Adverse Reactions, Alerts Substance Reaction Status Unknown - Active Unknown - Active Unknown - Active Medications Medication Instructions Effective Dates (start - stop) Status valACYclovir 500 mg Tab 2024-10-16 - Comp leted Carvedilol 25 mg Tab 2023-03-29 - Complet ed Miconazole Nitrate 2 % Crm 2024-09-27 - C ompleted Hair, Skin & Nails w biotin 2500 mcg 2024-10-16 - Completed Miconazole 2% cream 2024-10-16 - Complete d FIBER GUMMIES 2024-10-16 - Completed Rosuvastatin Calcium 10 mg Tab 2023-09-26 - Completed buPROPion ER (XL) 150 mg Tab ER 24hr 2024-05-04 - Completed Iwi Goodell-3 EPA & DHA 2024-10-16 - Comple alexis Trintellix 10 mg Tab 2024-07-31 - Complet ed Klayesta [id number] UNIT/GM Powder 2023-10-26 - Completed Klayesta [id number] UNIT/GM Powder 2023-10-26 - Completed valACYclovir 500 mg Tab 2024-10-16 - Comp leted Hair, Skin & Nails w biotin 2500 mcg 2024-10-16 - Completed oxyBUTYnin Chloride ER 10 mg Tab ER 24hr 2024-06-03 - Completed Vitamin D3 125 mcg 2024-10-16 - Completed Azelastine-Fluticasone 137-5 0 MCG/ACT Suspension 2024-04-25 - Completed Zepbound 2.5 mg/0.5ML Soluti on Auto-injector Subcutaneous 2024-11-08 - 2024-12-26 Completed Iwi Goodell-3 EPA & DHA 2024-10-16 - Comple alexis Azelastine-Fluticasone 137-5 0 MCG/ACT Suspension 2024-04-25 - Completed FIBER GUMMIES 2024-10-16 - Completed Aspirin 81 mg Tab Chewable 2024-10-16 - C ompleted Fluconazole 150 mg Tab 2024-09-27 - Compl eted oxyBUTYnin Chloride ER 10 mg Tab ER 24hr 2024-06-03 - Completed buPROPion ER (XL) 150 mg Tab ER 24hr 2024-05-04 - Completed Vitamin D3 125 mcg 2024-10-16 - Completed Carvedilol 25 mg Tab 2023-03-29 - Complet ed Trintellix 10 mg Tab 2024-07-31 - Complet ed Miconazole 2% cream 2024-10-16 - Complete d Nystatin Powder 2024-10-16 - Completed Nystatin Powder 2024-10-16 - Completed Fluconazole 150 mg Tab 2024-09-27 - Compl eted Ramipril 5 mg Cap 2024-03-13 - Completed Miconazole Nitrate 2 % Crm 2024-09-27 - C ompleted Zepbound 2.5 mg/0.5ML Soluti on Auto-injector Subcutaneous 2024-12-11 - Completed Aspirin 81 mg Tab Chewable 2024-10-16 - C ompleted Ramipril 5 mg Cap 2024-03-13 - Completed Rosuvastatin Calcium 10 mg Tab 2023-09-26 - Completed Problems Problem Status Start date Recorded date Anxiety disorder, unspecified Active 2024-10-31 2024-10-31 Degeneration of cervical intervertebral disc Active 2024-01-12 2024-01-12 Chronic allergic conjunctivitis Active 2019-12-28 7 2020-01-13 Postmenopausal bleeding Active 2023-09-262022 Gastroesophageal reflux dise ase without esophagitis Active 2016-07-15 2016-07-15 Double aortic arch Active 2024-10-31 5 Transient cerebral ischemia Active 2023-09-26 2023-09-26 Degeneration of thoracic intervertebral disc Active 2024-01-12 2024-01-12 Moderate major depression, single episode Active 2019-12-16 2019-12-16 Moderate major depression, single episode active 2019-12-16 Parkinson's disease Active 2023-03-28 Tremor Active 2023-03-17 2023-03-17 Depression, unspecified Active 2024-10-312023 Transient cerebral ischemia active 2023-09-26 Obesity Active 2024-10-16 2024-10-16 Personal history of other endocrine, nutritional and metabolic disease Active 2024-11-28 2024-11-28 Double aortic arch Active 2020-12-10 2020-11-27 4 Essential hypertension Active 2016-07-1507-15 Obstructive sleep apnea (angelique lt) (pediatric) Active 2024-10-31 2024-10-31 Obstructive sleep apnea syndrome active Cardiomyopathy Active 2000-01-26 2000-01-26 Depression, unspecified Active 2024-11-282024 Restless legs Active 2021-12-16 2021-12-16 Double aortic arch Active 2020-12-10 2020-11-27 4 Degeneration of thoracic intervertebral disc active 2024-01-12 Palpitations Active 2024-10-31 2024-10-31 Obesity, unspecified Active 2024-11-282024-11 Bariatric surgery status Active 2024-10-3103-08-05 No Known Problems Inactive [id number]: 29:17+ 00:00 [id number]:29:17+00: 00 Anxiety disorder, unspecified Active 2024-11-28 2024-11-28 Cardiomyopathy Active 2000-01-26 2000-01-26 Gastroesophageal reflux dise ase without esophagitis Inactive 2016-07-15 2016-07-15 Abnormality of albumin Active 2024-10-3110-31 Calculus of gallbladder with out cholecystitis without obstruction Active 2024-10-31 2024-10-31 Obstructive sleep apnea syndrome Active 2016-12-17 Kidney stones Active 2024-10-31 2024-10-31 Essential (primary) hypertension Active 2024-11-28 Gastroesophageal reflux dise ase without esophagitis remission 2016-07-15 Hypersomnia Active 2023-03-21 2023-03-21 Hyperlipidemia, unspecified Active 2024-10-31 2024-10-31 Kidney stones active 2024-10-31 [id number]: 39:08Z Allergic rhinitis due to ani mal dander Active 2019-12-16 2019-12-16 Hyperlipidemia Active 2024-12-26 2024-12-26 Intertrigo Active 2024-12-26 2024-12-26 Transient cerebral ischemia Active 2023-09-26 2023-09-26 Anxiety disorder active 2016-07-15 2024-10-31T 17:29:44Z Body mass index (bmi) 50-59. 9 , adult Active 2024-10-31 2024-10-31 Obesity Active 2024-10-16 2024-10-16 BMI 40.0-44.9, adult active 2025-01-092024-12T15:24:20Z Hyperlipidemia Active 2016-07-15 2016-07-15 Allergic rhinitis due to ani mal dander Active 2019-12-16 2019-12-16 Cardiomyopathy active 2000-01-26 [id number] :14:43Z Hyperlipidemia active 2024-12-26 [id number] :06:40Z Female stress incontinence Active 2022-12-30 2 023-02-03 Calculus of gallbladder with out cholecystitis without obstruction Active 2024-11-28 2024-11-28 Calculus of kidney Active 2024-11-28 2 Anxiety disorder Active 2016-07-15 2016-07-15 Female stress incontinence Active 2022-12-30 2 023-02-03 Chronic allergic conjunctivitis Active 2019-12-28 7 2020-01-13 Essential (primary) hypertension Active 2024-10-31 History of bariatric surgery active 2018-10-31 Heart palpitations Active 2024-10-31 5 Obesity, unspecified Active 2024-10-312024-10 History of bariatric surgery Active 2018-10-31 2018-10-31 Calculus of kidney Active 2024-10-31 5 Gallstones Active 2024-10-31 2024-10-31 Degeneration of cervical intervertebral disc Active 2024-01-12 2024-01-12 Anxiety disorder Active 2016-07-15 2016-07-15 Bariatric surgery status Active 2024-11-2803-27-02 Moderate major depression, single episode Active 2019-12-16 2019-12-16 Obstructive sleep apnea (angelique lt) (pediatric) Active 2024-11-28 2024-11-28 Degeneration of thoracic intervertebral disc Active 2024-01-12 2024-01-12 Obesity, Class III, BMI 40-49.9 Active 5 2024-10-31 Obstructive sleep apnea syndrome Active 2016-12-17 Disease of liver Active 2015-05-06 2015-05-06 Transient cerebral ischemic attack, unspecified Active 2024-10-31 2024-10-31 Double aortic arch active 2020-12-10 2025-01-25 3T13:15:01Z Low serum albumin Inactive 2021-10-31 2021-10-31 Cardiomyopathy, unspecified Active 2024-10-31 2024-10-31 Thoracic spondylosis with myelopathy Active 2023-09-26 2023-09-26 Tremor Active 2023-03-17 2023-03-17 Essential hypertension Active 2016-07-1507-15 Hyperlipidemia, unspecified Active 2024-11-28 2024-11-28 Procedures Procedure Date No Data Available [id number]:00:00+ 00:00 new patient, high complexity office visi t [id number]:00:00+00:00 Results No information Vital Signs Observation / Date May 07, 2025 Apr 30, 2025 April 03, 2025 Mar 19, 2025 Mar 06, 2025 Feb 06, 2025 Jan 17, 2025 Jan 09, 2025 Dec 26, 2024 Dec 27, 2024 Oct 30, 2024 Dec 06, 2024 Oct 31, 2024 Nov 28, 2024 Weight 108.99 [id number] 582176 kg 108.99 684198 777486 kg 109.9 18976 64978 323 kg 110.9 90596 27447 061 kg 112.0 82833 21485 942 kg 112.6 81964 62170 399 kg 113.0 55363 88829 715 kg 112.1 89662 70921 047 kg 114.5 46181 04331 878 kg 114.5 17187 46526 878 kg 118.3 10071 64706 834 kg 115.5 20607 63835 687 kg 119.0 33168 05875 361 kg 115.6 60560 08677 757 kg Body Mass Index (BMI) 41.25 kg/m2 41.25 kg/m2 41.61 kg/m2 41.97 kg/m2 42.4 kg/m2 42.62 kg/m2 42.78 kg/m2 42.45 kg/m2 43.34 kg/m2 43.3 kg/m2 44.78 kg/m2 43.7 kg/m2 45.04 kg/m2 43.77 kg/m2 Height 162.56 cm 162.5 6 cm 162.5 6 cm 162.5 6 cm 162.5 6 cm 162.5 6 cm 162.5 6 cm 162.5 6 cm 162.5 6 cm 162.5 6 cm 162.5 6 cm Plan of Treatment Description Planned Activity Planned Timing - 8 weeks Medical Deci lico Making Attestation: I personally evaluated and provided care of moderate complexity for this patient on the date of the encounter. This includes evaluation of 2 or more stable chronic conditions, review of prior external notes from external sources, review of test results, ordering unique tests when indicated, and performing independent interpretation of test(s) performed by another qualified clinician. This visit was provided through telemedicine in a real-time interactive video clinical encounter.-Chronic; uses CPAP nightly-Chronic, ongoing -Last lipid panel reviewed from 10/2024 -C/w Rosuvastatin dailyPatient is generally doing well, improving lifestyle, experiencing weight loss, and non-scale victories.Reviewed importance of sleep on metabolic regulation and weight loss. Recommended continuing good sleep hygiene activities.Will continue to work with [facility] dietitian via video visits and in-ibeth messaging to introduce healthier food choices and caloric restriction.Continue working on iterative, sustainable changes, photo logging, support and accountability, which we will continue to provide.Previous use of AOM attempts: -2018: bariatric surgery -10/2024 - present: Serg Current AOM Medication(s): discussed [employer] transition to Mounjaro after 05/27; will erx Mounjaro 5mg weekly now Hx of kidney stones: would avoid TopamaxReviewed side effects, proper use, and counseled that termite exterminator use may be needed for continued efficacy.Reviewed plan for discontinuation if not effective (defined as <5% weight loss after 3 months).Patient demonstrates understanding and agrees with the plan.Discussed need for contraception (if applicable).-Chronic; following with Cardiology -C/w medications as prescribed-Chronic, ongoing -Denies any mood changes with AOM -C/w medications as prescribed Apr 30, 2024Jun 04, 2024Jun 04, 2024Jun 04, 2024Jun 04, 2024Jun 04, 2024Jun 04, 2024Jun 04, 2024Jun 04, 2024Jun 04, 2024Jun 04, 2024Jun 04, 2024Jun 04, 2024Jun 04, 2024 - 8 weeks Medical Maria Victoria barfield Making Attestation: I personally evaluated and provided care of moderate complexity for this patient on the date of the encounter. This includes evaluation of 2 or more stable chronic conditions, review of prior external notes from external sources, review of test results, ordering unique tests when indicated, and performing independent interpretation of test(s) performed by another qualified clinician. This visit was provided through telemedicine in a real-time interactive video clinical encounter.-Chronic; uses CPAP nightly-Chronic, ongoing -Last lipid panel reviewed from 10/2024 -C/w Rosuvastatin dailyPatient is generally doing well, improving lifestyle, experiencing weight loss, and non-scale victories.Reviewed importance of sleep on metabolic regulation and weight loss. Recommended continuing good sleep hygiene activities.Will continue to work with [facility] dietitian via video visits and in-ibeth messaging to introduce healthier food choices and caloric restriction.Continue working on iterative, sustainable changes, photo logging, support and accountability, which we will continue to provide.Previous use of AOM attempts: 2018: bariatric surgery 10/2024 - present: Zepbound Current AOM Medication(s): c/w Zepbound 5mg weekly + incorporate walking 2 days per week Hx of kidney stones: would avoid TopamaxReviewed side effects, proper use, and counseled that termite exterminator use may be needed for continued efficacy.Reviewed plan for discontinuation if not effective (defined as <5% weight loss after 3 months).Patient demonstrates understanding and agrees with the plan.Discussed need for contraception (if applicable).-Chronic; following with Cardiology -C/w medications as prescribed-Chronic, ongoing -Denies any mood changes with AOM -C/w medications as prescribed Apr , 5Apr 23, 2025Apr 23, 2025Apr 23, 2025Apr 23, 2025Apr 23, 2025Apr 23, 2025Apr 23, 2025Apr 23, 5Apr 23, 5Apr 23, 2025Apr 23, 5Apr 23, 5Apr 23, 2024 - 4 -6 weeks Medical D ecision Making Attestation: I personally evaluated and provided care of moderate complexity for this patient on the date of the encounter. This includes evaluation of 2 or more stable chronic conditions, review of prior external notes from external sources, review of test results, ordering unique tests when indicated, and performing independent interpretation of test(s) performed by another qualified clinician. This visit was provided through telemedicine in a real-time interactive video clinical encounter.-Chronic; uses CPAP nightly-Chronic, ongoing -Last lipid panel reviewed from 10/2024 -C/w Rosuvastatin dailyPatient is generally doing well, improving lifestyle, experiencing weight loss, and non-scale victories.Reviewed importance of sleep on metabolic regulation and weight loss. Recommended continuing good sleep hygiene activities.Will continue to work with [facility] dietitian via video visits and in-ibeth messaging to introduce healthier food choices and caloric restriction.Continue working on iterative, sustainable changes, photo logging, support and accountability, which we will continue to provide.Previous use of AOM attempts: 2018: bariatric surgery 10/2024 - present: Zepbound Current AOM Medication(s): complete Zepbound 2.5mg x 4 weeks total and then increase to 5mg weekly Hx of kidney stones: would avoid TopamaxReviewed side effects, proper use, and counseled that care home use may be needed for continued efficacy.Reviewed plan for discontinuation if not effective (defined as <5% weight loss after 3 months).Patient demonstrates understanding and agrees with the plan.Discussed need for contraception (if applicable).-Chronic; following with Cardiology -C/w medications as prescribed-Chronic, ongoing -Denies any mood changes with AOM -C/w medications as prescribed Mar 13, 2024Mar 13, 2024Mar 13, 2024Mar 13, 2024Mar 13, 2024Mar 13, 2024Mar 13, 2024Mar 13, 2024Mar 13, 2024Mar 13, 2024Mar 13, 2024Mar 13, 2024Mar 13, 2024Mar 13, 2024 - 4 -6 weeks Medical D ecision Making Attestation: I personally evaluated and provided care of moderate complexity for this patient on the date of the encounter. This includes evaluation of 2 or more stable chronic conditions, review of prior external notes from external sources, review of test results, ordering unique tests when indicated, and performing independent interpretation of test(s) performed by another qualified clinician. This visit was provided through telemedicine in a real-time interactive video clinical encounter.-Chronic; uses CPAP nightly-Chronic, ongoing -Last lipid panel reviewed from 10/2024 -C/w Rosuvastatin dailyPatient is generally doing well, improving lifestyle, experiencing weight loss, and non-scale victories.Reviewed importance of sleep on metabolic regulation and weight loss. Recommended continuing good sleep hygiene activities.Will continue to work with [facility] dietitian via video visits and in-ibeth messaging to introduce healthier food choices and caloric restriction.Continue working on iterative, sustainable changes, photo logging, support and accountability, which we will continue to provide.Previous use of AOM attempts: 2018: bariatric surgery 10/2024 - present: Zepbound Current AOM Medication(s): complete Zepbound 2.5mg x 4 weeks total and then increase to 5mg weekly Hx of kidney stones: would avoid TopamaxReviewed side effects, proper use, and counseled that termite exterminator use may be needed for continued efficacy.Reviewed plan for discontinuation if not effective (defined as <5% weight loss after 3 months).Patient demonstrates understanding and agrees with the plan.Discussed need for contraception (if applicable).-Chronic; following with Cardiology -C/w medications as prescribed-Chronic, ongoing -Denies any mood changes with AOM -C/w medications as prescribed Feb 06, 2024Mar 13, 2024Mar 13, 2024Mar 13, 2024Mar 13, 2024Mar 13, 2024Mar 13, 2024Mar 13, 2024Mar 13, 2024Mar 13, 2024Mar 13, 2024Mar 13, 2024Mar 13, 2024Mar 13, 2024 - 4 weeks Medical Deci lico Making Attestation: I personally evaluated and provided care of moderate complexity for this patient on the date of the encounter. This includes evaluation of 2 or more stable chronic conditions, review of prior external notes from external sources, review of test results, ordering unique tests when indicated, and performing independent interpretation of test(s) performed by another qualified clinician. This visit was provided through telemedicine in a real-time interactive video clinical encounter.-Chronic; uses CPAP nightly-Chronic, ongoing -C/w Rosuvastatin dailyPatient is generally doing well, improving lifestyle, experiencing weight loss, and non-scale victories.Reviewed importance of sleep on metabolic regulation and weight loss. Recommended continuing good sleep hygiene activities.Will continue to work with [facility] dietitian via video visits and in-ibeth messaging to introduce healthier food choices and caloric restriction.Continue working on iterative, sustainable changes, photo logging, support and accountability, which we will continue to provide.Previous use of AOM attempts: 2018: bariatric surgery 10/2024 - present: Zepbound Current AOM Medication(s): restart Zepbound at 2.5mg weeklyReviewed side effects, proper use, and counseled that termite exterminator use may be needed for continued efficacy.Reviewed plan for discontinuation if not effective (defined as <5% weight loss after 3 months).Patient demonstrates understanding and agrees with the plan.Discussed need for contraception (if applicable).-Chronic; following with Cardiology -C/w medications as prescribed-Chronic, ongoing -Denies any mood changes with AOM -C/w medications as prescribed Jan 09, 2025Feb , 2024Feb , 2024Feb , 2024Feb 13, 2024Feb 13, 2024Feb 13, 2024Feb 13, 2024Feb 13, 2024Feb , 2024Feb , 2024Feb , 2024Feb , 2024Feb 2024 - 4 weeks Medical Maria Victoria barfield Making Attestation: I personally evaluated and provided care of moderate complexity for this patient on the date of the encounter. This includes evaluation of 2 or more stable chronic conditions, review of prior external notes from external sources, review of test results, ordering unique tests when indicated, and performing independent interpretation of test(s) performed by another qualified clinician. This visit was provided through telemedicine in a real-time interactive video clinical encounter.Patient is generally doing well, improving lifestyle, experiencing weight loss, and non-scale victories.current wt change -3.6%Reviewed importance of sleep on metabolic regulation and weight loss. Recommended continuing good sleep hygiene activities.Will continue to work with [facility] dietitian via video visits and in-ibeth messaging to introduce healthier food choices and caloric restriction.Goal for Next Visit: no new goals.Continue working on iterative, sustainable changes, photo logging, support and accountability, which we will continue to provide.Current AOM Medication(s): When finished with 2.5 mg, increase Zepbound to 5 mg.Reviewed side effects, proper use, and counseled that termite exterminator use may be needed for continued efficacy.Reviewed plan for discontinuation if not effective (defined as <5% weight loss after 3 months).Patient demonstrates understanding and agrees with the plan.Discussed need for contraception (if applicable). --- ABSTINENCE.Stable on Trintellix 10 mg, Bupropion XL 150 mguses CPAPNormal event monitor 09/17/24-10/01/2024 per outside notes.Denies worsening of sx with zepbound.groin. Uses myconazole and nystatin powderseen on imagingnoted on problem list. most recent lipids at goal. TC: 159, Trigs: 126, HDL: 53, LDL: 83 (10/2024)no meds. Monitor. Expect improvement w/ wt loss.Right side. Following with urology.Going for additional imaging soon.history looks like ?chd. h/o pfo closure and vsd repair. double aortic arch.Problem list contains dx of cardiomyopathy. No note found, but pt states she follow with cardiology and is taking carvedilol and ramipril.TTE noted 06/2023 w/ normal LVEF.monitor for symptoms w/ glp use. Dec 26, 2024Jan 30, 2025Jan 30, 2025Jan 30, 2025Jan 30, 2025Jan 30, 2025Jan 30, 2025Jan 30, 2025Jan 30, 2025Jan 30, 2025Jan 30, 2025Jan 30, 2025Jan 30, 2025Jan 30, 2025Jan 30, 2025Jan 30, 2025Jan 30, 2025Jan 30, 2025Jan 30, 2025Jan 30, 2025Jan 30, 2025Jan 30, 2025Jan 30, 2025Jan 30, 2025Jan 30, 2025Jan 30, 2025 - 4 weeks Medical Deci lico Making Attestation: I personally evaluated and provided care of moderate complexity for this patient on the date of the encounter. This includes evaluation of 2 or more stable chronic conditions, review of prior external notes from external sources, review of test results, ordering unique tests when indicated, and performing independent interpretation of test(s) performed by another qualified clinician. This visit was provided through telemedicine in a real-time interactive video clinical encounter.Prior dietary attempts: Calorie counting, caloric restriction, Weight Watcher's, Nutrisystem and Hello Fresh. Prior medication attempts: Injections approximately 10 years ago (? possibly HCG injections) Prior surgical intervention: 2018 vertical sleeve gastrectomyHistory of vertical sleeve gastrectomy (VSG) in 2018. Is not following with surgical practice. Is not taking bariatric vitamins, but is taking over the counter vitamins and supplements. Discussed possibility of revising VSG and/or converting to RYGB. Discussed risk benefit. Will discuss again in the future, but did inform patient that we do not know how long GLP-1/GIP RA medications will be successful for and that MBS is still the most long-term effective solution for the treatment of obesity. Encouraged her to consider this option in the future as I do not know if medication alone will be sufficient to get her to her healthiest weight. Would refer to Dr. Get Lake, with [facility] should she decide to move forward as his program is comprehensive and heavy on postoperative engagement and education, which she lacked with her prior intervention and surgeon. Reports she had little to no education and support from her surgeon/surgeon's office. Order bariatric labs, await results. Will discuss patient case with RD. HBW: ~ 270-280 lbs Lowest weight achieved: ~ 215-220 lbsFollows with carbon capture power plant engineer Dr. New Curran. Currently on ramipril 5 mg and carvedilol 25 mg. Encouraged patient to check blood pressure 2-3x/week as dose adjustments may be needed to antihypertensive medication during weight loss. Continue all medication as prescribed. Discussed s/s of hypotension.see #3Follows cardiology. Dr. New Curran. Currently on rosuvastatin 10 mg and ASA 81 mg Repeating fasting lipid panel, await results.Discussed that this is likely from diet. Repeat labs, await results. Will discuss with RD. Patient reports she is not focusing much on protein. Albumin 3.2(L) (3.4-5.0) 07/03/24 Albumin 3.7 02/11/2023 Albumin 3.5(L) 2021, 4.0 in 11/23/22 Albumin 2.9(L) 08/14/21History of kidney stones, reports a recent stone but unsure of the date. Would avoid topiramate and topiramate containing medications.Currently controlled and managed with CPAP machine. Continue to use while sleeping.Currently stable, see LIBBY-7 and PHQ-2 scores. Managed currently with Trintellix and Bupropion per psych Dr. Zenia Bonner. Monitor mood for any changes with initiation of GLP-1/GIP RA.Patient has a cardiac history which includes hypertension, cardiomyopathy and reports having heart palpitations in August. Wore a heart monitor for 2 weeks 09/17/24-10/01/2024 - results pending with carbon capture power plant engineer's office. Discussed that I want to review results before prescribing medication due to having a handful of patients who experience tachycardia with initiation of GLP-1 and GLP-1/GIP RA medications. Patient verbalized understanding and will also try to retrieve her results. Will request medical records from carbon capture power plant engineer's office.Had MRA imaging in 2022 and noted ischemia. Patient does not recall being symptomatic. 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 Follows with cardiology service closely. Will request medical records for review.Gallstones seen on prior imaging. Discussed risk of further development and/or risk of developing gallstone pancreatitis and cholecystitis. Discussed s/s to watch for and when to seek medical care.Patient meets criteria for medication therapy for chronic weight management in adults given documented BMI and currently engaged in an intensive, comprehensive weight loss program involving behavioral modification and low calorie diet.Patient has previously participated in a trial of behavior modification, increased physical activity and caloric restriction for at least 12 months or more but failed to lose weight or maintain weight that was lost.Reviewed how obesity and overweight can contribute to excess morbidity, including cardiometabolic disease, cancer, and many others. Patient is seeking medical weight management as part of treatment for weight-related disorders and/or for prevention of future complications. We have reviewed the metabolic and other benefits associated with weight loss. I have counseled extensively on the pathophysiology of and available treatment options for obesity, including lifestyle modification with changes to nutrition, physical activity, behaviors, and sleep health, multiple options for medications for weight loss.Reviewed prior laboratory results.Lab orders as below.There are no historical or PE findings suggestive of secondary causes of obesity necessitating further endocrine studies at this time.Reviewed effects of sleep on metabolic regulation and importance of sleep for weight loss. Reviewed and recommended good sleep hygiene activities to optimize sleep quantity and quality.Recommended Form [facility] dietitian video visits & in-ibeth messaging to further develop their nutrition plan based on healthier food choices & caloric restriction.Recommended following low calorie eating pattern following the [facility] CardStar plating method while emphasizing the importance of a healthy food environment. Will consider use of partial meal replacements.Discussed health benefits of regular physical activity and recommended implementing a gradual increase to at least 150 minutes of moderately intense exercise per week including at least 2 days of resistance training.Discussed important of iterative, sustainable changes, and strategies we will use to help implement changes. Reviewed evidence for logging, small but progressive goals, importance of a support network and accountability, which we will continue to provide.Recommended the patient start:Zepbound: This is a new and highly effective anti-obesity medication. There are NO formulary alternatives as there are no other drugs in this class approved for obesity treatment.Not Available or Recommended: -Contrave: patient is currently on Bupropion and her mood is currently stable. -Topiramate: history of kidney stones. -Orlistat: patient has a job/lifestyle that does not allow for frequent/urgent trips to the restroom as is common with Orlistat. -Phentermine/Qsymia: As I am unable to see patient for in-person visits, I cannot prescribe controlled substances.We reviewed side effects, medication administration, long-term use, and plan for discontinuation if not effective, defined as <5% loss in 3 months. Patient denies history of heart disease, glaucoma, seizures, bipolar disorder, pancreatitis, bowel obstruction, purging, drug abuse, or current opioid use. Denies personal/family history of Medullary Thyroid Cancer or MEN 2A/2B syndrome. No history of DM retinopathy.Medication list was reviewed for potential drug-drug interactions.Patient not currently on contraception, and also not sexually active at this time.LIPID PANEL WITH REFLEX TO DIRECT LDLVITAMIN D,25-OH,TOTAL,IAFOLATE, RBCVITAMIN B1 (THIAMINE), BLOOD, LC/MS/MSZINC, RBCINSULINCOMPREHENSIVE METABOLIC PANELCBC (INCLUDES DIFF/PLT) (REFL)VITAMIN B12TSH W/REFLEX TO [id number] A (RETINOL)HEMOGLOBIN [id number], TIBC AND FERRITIN PANELPTH, INTACT AND CALCIUM (REFL) Oct 31, 4Dec 05, 2024Dec 05, 2024Dec 05, 2024Dec 05, 2024Dec 05, 2024Dec 05, 2024Dec 05, 2024Dec 05, 2024Dec 05, 2024Dec 05, 2024Dec 05, 2024Dec 05, 2024Dec 05, 2024Dec 05, 2024Dec 05, 2024Dec 05, 2024Dec 05, 2024Dec 05, 2024Dec 05, 2024Dec 05, 2024Dec 05, 2024Dec 05, 2024Dec 05, 2024Dec 05, 2024Dec 05, 2024Dec 05, 2024Dec 05, 2024Dec 05, 2024Dec 05, 4Dec 05, 4Dec 05, 2023 - 4 weeksPrior dietary attempts: Calorie counting, caloric restriction, Weight Watcher's, Nutrisystem and Hello Fresh. Prior medication attempts: Injections approximately 10 years ago (? possibly HCG injections) Prior surgical intervention: 2018 vertical sleeve gastrectomyHistory of vertical sleeve gastrectomy (VSG) in 2018. Is not following with surgical practice. Is not taking bariatric vitamins, but is taking over the counter vitamins and supplements. Discussed possibility of revising VSG and/or converting to RYGB. Will discuss again in the future, but did inform patient that we do not know how long GLP-1/GIP RA medications will be successful for and that MBS is still the most long-term effective solution for the treatment of obesity. Encouraged her to consider this option in the future as I do not know if medication alone will be sufficient to get her to her healthiest weight. Would refer to Dr. Get Lake, with [facility] should she decide to move forward as his program is comprehensive and heavy on postoperative engagement and education, which she lacked with her prior intervention and surgeon. Reports she had little to no education and support from her surgeon/surgeon's office. HBW: ~ 270-280 lbs Lowest weight achieved: ~ 215-220 [address]s [address] carbon capture power plant engineer [address] New Curran. Currently on ramipril 5 mg and carvedilol 25 mg. Encouraged patient to check blood pressure 2-3x/week as dose adjustments may be needed to antihypertensive medication during weight loss. Continue all medication as prescribed. Discussed s/s of hypotension.Follows cardiology. Dr. New Curran. Currently on rosuvastatin 10 mg and ASA 81 mg Repeating fasting lipid panel, await results.History of kidney stones, reports a recent stone but unsure of the date. Would avoid topiramate and topiramate containing medications.Currently controlled and managed with CPAP machine. Continue to use while sleeping.Currently stable, see LIBBY-7 and PHQ-2 scores. Managed currently with Trintellix and Bupropion per psych Dr. Zenia Bonner. Continue to monitor mood with use of GLP-1/GIP RA.Gallstones seen on prior imaging. Discussed risk of further development and/or risk of developing gallstone pancreatitis and cholecystitis. Discussed s/s to watch for and when to seek medical care. Nov 28, , , , , , , , 2024 - 4 weeks Medical Deci l[facility] Making Attestation: I personally evaluated and provided care of moderate complexity for this patient on the date of the encounter. This includes evaluation of 2 or more stable chronic conditions, review of prior external notes from external sources, review of test results, ordering unique tests when indicated, and performing independent interpretation of test(s) performed by another qualified clinician. This visit was provided through telemedicine in a real-time interactive video clinical encounter.Prior dietary attempts: Calorie counting, caloric restriction, Weight Watcher's, Nutrisystem and Hello Fresh. Prior medication attempts: Injections approximately 10 years ago (? possibly HCG injections) Prior surgical intervention: 2018 vertical sleeve gastrectomyHistory of vertical sleeve gastrectomy (VSG) in 2018. Is not following with surgical practice. Is not taking bariatric vitamins, but is taking over the counter vitamins and supplements. Discussed possibility of revising VSG and/or converting to RYGB. Discussed risk benefit. Will discuss again in the future, but did inform patient that we do not know how long GLP-1/GIP RA medications will be successful for and that MBS is still the most long-term effective solution for the treatment of obesity. Encouraged her to consider this option in the future as I do not know if medication alone will be sufficient to get her to her healthiest weight. Would refer to Dr. Get Lake, with [facility] should she decide to move forward as his program is comprehensive and heavy on postoperative engagement and education, which she lacked with her prior intervention and surgeon. Reports she had little to no education and support from her surgeon/surgeon's office. Order bariatric labs, await results. Will discuss patient case with RD. HBW: ~ 270-280 lbs Lowest weight achieved: ~ 215-220 lbsFollows with carbon capture power plant engineer [address]. New Curran. Currently on ramipril 5 mg and carvedilol 25 mg. Encouraged patient to check blood pressure 2-3x/week as dose adjustments may be needed to antihypertensive medication during weight loss. Continue all medication as prescribed. Discussed s/s of hypotension.see #3Follows cardiology. Dr. New Curran. Currently on rosuvastatin 10 mg and ASA 81 mg Repeating fasting lipid panel, await results.Discussed that this is likely from diet. Repeat labs, await results. Will discuss with RD. Patient reports she is not focusing much on protein. Albumin 3.2(L) (3.4-5.0) 07/03/24 Albumin 3.7 02/11/2023 Albumin 3.5(L) 2021, 4.0 in 11/23/22 Albumin 2.9(L) 08/14/21History of kidney stones, reports a recent stone but unsure of the date. Would avoid topiramate and topiramate containing medications.Currently controlled and managed with CPAP machine. Continue to use while sleeping.Currently stable, see LIBBY-7 and PHQ-2 scores. Managed currently with Trintellix and Bupropion per psych Dr. Zenia Bonner. Monitor mood for any changes with initiation of GLP-1/GIP RA.Patient has a cardiac history which includes hypertension, cardiomyopathy and reports having heart palpitations in August. Wore a heart monitor for 2 weeks 09/17/24-10/01/2024 - results pending with carbon capture power plant engineer's office. Discussed that I want to review results before prescribing medication due to having a handful of patients who experience tachycardia with initiation of GLP-1 and GLP-1/GIP RA medications. Patient verbalized understanding and will also try to retrieve her results. Will request medical records from carbon capture power plant engineer's office.Had MRA imaging in 2022 and noted ischemia. Patient does not recall being symptomatic. 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 Follows with cardiology service closely. Will request medical records for review.Gallstones seen on prior imaging. Discussed risk of further development and/or risk of developing gallstone pancreatitis and cholecystitis. Discussed s/s to watch for and when to seek medical care.Patient meets criteria for medication therapy for chronic weight management in adults given documented BMI and currently engaged in an intensive, comprehensive weight loss program involving behavioral modification and low calorie diet.Patient has previously participated in a trial of behavior modification, increased physical activity and caloric restriction for at least 12 months or more but failed to lose weight or maintain weight that was lost.Reviewed how obesity and overweight can contribute to excess morbidity, including cardiometabolic disease, cancer, and many others. Patient is seeking medical weight management as part of treatment for weight-related disorders and/or for prevention of future complications. We have reviewed the metabolic and other benefits associated with weight loss. I have counseled extensively on the pathophysiology of and available treatment options for obesity, including lifestyle modification with changes to nutrition, physical activity, behaviors, and sleep health, multiple options for medications for weight loss.Reviewed prior laboratory results.Lab orders as below.There are no historical or PE findings suggestive of secondary causes of obesity necessitating further endocrine studies at this time.Reviewed effects of sleep on metabolic regulation and importance of sleep for weight loss. Reviewed and recommended good sleep hygiene activities to optimize sleep quantity and quality.Recommended [facility] dietitian video visits & in-ibeth messaging to further develop their nutrition plan based on healthier food choices & caloric restriction.Recommended following low calorie eating pattern following the [facility] [employer] plating method while emphasizing the importance of a healthy food environment. Will consider use of partial meal replacements.Discussed health benefits of regular physical activity and recommended implementing a gradual increase to at least 150 minutes of moderately intense exercise per week including at least 2 days of resistance training.Discussed important of iterative, sustainable changes, and strategies we will use to help implement changes. Reviewed evidence for logging, small but progressive goals, importance of a support network and accountability, which we will continue to provide.Recommended the patient start:Zepbound: This is a new and highly effective anti-obesity medication. There are NO formulary alternatives as there are no other drugs in this class approved for obesity treatment.Not Available or Recommended: -Contrave: patient is currently on Bupropion and her mood is currently stable. -Topiramate: history of kidney stones. -Orlistat: patient has a job/lifestyle that does not allow for frequent/urgent trips to the restroom as is common with Orlistat. -Phentermine/Qsymia: As I am unable to see patient for in-person visits, I cannot prescribe controlled substances.We reviewed side effects, medication administration, long-term use, and plan for discontinuation if not effective, defined as <5% loss in 3 months. Patient denies history of heart disease, glaucoma, seizures, bipolar disorder, pancreatitis, bowel obstruction, purging, drug abuse, or current opioid use. Denies personal/family history of Medullary Thyroid Cancer or MEN 2A/2B syndrome. No history of DM retinopathy.Medication list was reviewed for potential drug-drug interactions.Patient not currently on contraception, and also not sexually active at this time.LIPID PANEL WITH REFLEX TO DIRECT LDLVITAMIN D,25-OH,TOTAL,IAFOLATE, RBCVITAMIN B1 (THIAMINE), BLOOD, LC/MS/MSZINC, RBCINSULINCOMPREHENSIVE METABOLIC PANELCBC (INCLUDES DIFF/PLT) (REFL)VITAMIN B12TSH W/REFLEX TO [id number] (RETINOL)HEMOGLOBIN [id number], TIBC AND FERRITIN PANELPTH, INTACT AND CALCIUM (REFL)4 weeksPrior dietary attempts: Calorie counting, caloric restriction, Weight Watcher's, Nutrisystem and Hello Fresh. Prior medication attempts: Injections approximately 10 years ago (? possibly HCG injections) Prior surgical intervention: 2018 vertical sleeve gastrectomyHistory of vertical sleeve gastrectomy (VSG) in 2018. Is not following with surgical practice. Is not taking bariatric vitamins, but is taking over the counter vitamins and supplements. Discussed possibility of revising VSG and/or converting to RYGB. Will discuss again in the future, but did inform patient that we do not know how long GLP-1/GIP RA medications will be successful for and that MBS is still the most long-term effective solution for the treatment of obesity. Encouraged her to consider this option in the future as I do not know if medication alone will be sufficient to get her to her healthiest weight. Would refer to Dr. Get Lake, with [facility] should she decide to move forward as his program is comprehensive and heavy on postoperative engagement and education, which she lacked with her prior intervention and surgeon. Reports she had little to no education and support from her surgeon/surgeon's office. HBW: ~ 270-280 lbs Lowest weight achieved: ~ 215-220 lbsFollows with carbon capture power plant engineer [address]. New Curran. Currently on ramipril 5 mg and carvedilol 25 mg. Encouraged patient to check blood pressure 2-3x/week as dose adjustments may be needed to antihypertensive medication during weight loss. Continue all medication as prescribed. Discussed s/s of hypotension.Follows cardiology. Dr. New Curran. Currently on rosuvastatin 10 mg and ASA 81 mg Repeating fasting lipid panel, await results.History of kidney stones, reports a recent stone but unsure of the date. Would avoid topiramate and topiramate containing medications.Currently controlled and managed with CPAP machine. Continue to use while sleeping.Currently stable, see LIBBY-7 and PHQ-2 scores. Managed currently with Trintellix and Bupropion per psych Dr. Zenia Bonner. Continue to monitor mood with use of GLP-1/GIP RA.Gallstones seen on prior imaging. Discussed risk of further development and/or risk of developing gallstone pancreatitis and cholecystitis. Discussed s/s to watch for and when to seek medical care. Oct 314Dec 05, 2024Dec 05, 2024Dec 05, 2024Dec 05, 2024Dec 05, 2024Dec 05, 2024Dec 05, 2024Dec 05, 2024Dec 05, 2024Dec 05, 2024Dec 05, 2024Dec 05, 2024Dec 05, 2024Dec 05, 2024Dec 05, 2024Dec 05, 2024Dec 05, 2024Dec 05, 2024Dec 05, 2024Dec 05, 2024Dec 05, 2024Dec 05, 2024Dec 05, 2024Dec 05, 2024Dec 05, 2024Dec 05, 2024Dec 05, 2024Dec 05, 2024Dec 05, 2024Dec 05, 4Dec 2023 Nov 28, , , , , , , , , 2024 - 4 weeksPrior dietary attempts: Calorie counting, caloric restriction, Weight Watcher's, Nutrisystem and Hello Fresh. Prior medication attempts: Injections approximately 10 years ago (? possibly HCG injections) Prior surgical intervention: 2018 vertical sleeve gastrectomyHistory of vertical sleeve gastrectomy (VSG) in 2018. Is not following with surgical practice. Is not taking bariatric vitamins, but is taking over the counter vitamins and supplements. Discussed possibility of revising VSG and/or converting to RYGB. Will discuss again in the future, but did inform patient that we do not know how long GLP-1/GIP RA medications will be successful for and that MBS is still the most long-term effective solution for the treatment of obesity. Encouraged her to consider this option in the future as I do not know if medication alone will be sufficient to get her to her healthiest weight. Would refer to Dr. Get Lake, with [facility] should she decide to move forward as his program is comprehensive and heavy on postoperative engagement and education, which she lacked with her prior intervention and surgeon. Reports she had little to no education and support from her surgeon/surgeon's office. HBW: ~ 270-280 lbs Lowest weight achieved: ~ 215-220 lbsFollows with carbon capture power plant engineer Dr. New Curran. Currently on ramipril 5 mg and carvedilol 25 mg. Encouraged patient to check blood pressure 2-3x/week as dose adjustments may be needed to antihypertensive medication during weight loss. Continue all medication as prescribed. Discussed s/s of hypotension.Follows cardiology. Dr. New Curran. Currently on rosuvastatin 10 mg and ASA 81 mg Repeating fasting lipid panel, await results.History of kidney stones, reports a recent stone but unsure of the date. Would avoid topiramate and topiramate containing medications.Currently controlled and managed with CPAP machine. Continue to use while sleeping.Currently stable, see LIBBY-7 and PHQ-2 scores. Managed currently with Trintellix and Bupropion per psych Dr. Zenia Bonner. Continue to monitor mood with use of GLP-1/GIP RA.Gallstones seen on prior imaging. Discussed risk of further development and/or risk of developing gallstone pancreatitis and cholecystitis. Discussed s/s to watch for and when to seek medical care. Nov 28, , , , , , , , , 2024 - 4 weeks Medical Deci [facility] Making Attestation: I personally evaluated and provided care of moderate complexity for this patient on the date of the encounter. This includes evaluation of 2 or more stable chronic conditions, review of prior external notes from external sources, review of test results, ordering unique tests when indicated, and performing independent interpretation of test(s) performed by another qualified clinician. This visit was provided through telemedicine in a real-time interactive video clinical encounter.Prior dietary attempts: Calorie counting, caloric restriction, Weight Watcher's, Nutrisystem and Hello Fresh. Prior medication attempts: Injections approximately 10 years ago (? possibly HCG injections) Prior surgical intervention: 2018 vertical sleeve gastrectomyHistory of vertical sleeve gastrectomy (VSG) in 2018. Is not following with surgical practice. Is not taking bariatric vitamins, but is taking over the counter vitamins and supplements. Discussed possibility of revising VSG and/or converting to RYGB. Discussed risk benefit. Will discuss again in the future, but did inform patient that we do not know how long GLP-1/GIP RA medications will be successful for and that MBS is still the most long-term effective solution for the treatment of obesity. Encouraged her to consider this option in the future as I do not know if medication alone will be sufficient to get her to her healthiest weight. Would refer to Dr. Get Lake, with [facility] should she decide to move forward as his program is comprehensive and heavy on postoperative engagement and education, which she lacked with her prior intervention and surgeon. Reports she had little to no education and support from her surgeon/surgeon's office. Order bariatric labs, await results. Will discuss patient case with RD. HBW: ~ 270-280 lbs Lowest weight achieved: ~ 215-220 lbsFollows with carbon capture power plant engineer Dr. New Curran. Currently on ramipril 5 mg and carvedilol 25 mg. Encouraged patient to check blood pressure 2-3x/week as dose adjustments may be needed to antihypertensive medication during weight loss. Continue all medication as prescribed. Discussed s/s of hypotension.see #3Follows cardiology. Dr. New Curran. Currently on rosuvastatin 10 mg and ASA 81 mg Repeating fasting lipid panel, await results.Discussed that this is likely from diet. Repeat labs, await results. Will discuss with RD. Patient reports she is not focusing much on protein. Albumin 3.2(L) (3.4-5.0) 07/03/24 Albumin 3.7 02/11/2023 Albumin 3.5(L) 2021, 4.0 in 11/23/22 Albumin 2.9(L) 08/14/21History of kidney stones, reports a recent stone but unsure of the date. Would avoid topiramate and topiramate containing medications.Currently controlled and managed with CPAP machine. Continue to use while sleeping.Currently stable, see LIBBY-7 and PHQ-2 scores. Managed currently with Trintellix and Bupropion per psych Dr. Zenia Bonner. Monitor mood for any changes with initiation of GLP-1/GIP RA.Patient has a cardiac history which includes hypertension, cardiomyopathy and reports having heart palpitations in August. Wore a heart monitor for 2 weeks 09/17/24-10/01/2024 - results pending with carbon capture power plant engineer's office. Discussed that I want to review results before prescribing medication due to having a handful of patients who experience tachycardia with initiation of GLP-1 and GLP-1/GIP RA medications. Patient verbalized understanding and will also try to retrieve her results. Will request medical records from carbon capture power plant engineer's office.Had MRA imaging in 2022 and noted ischemia. Patient does not recall being symptomatic. 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 Follows with cardiology service closely. Will request medical records for review.Gallstones seen on prior imaging. Discussed risk of further development and/or risk of developing gallstone pancreatitis and cholecystitis. Discussed s/s to watch for and when to seek medical care.Patient meets criteria for medication therapy for chronic weight management in adults given documented BMI and currently engaged in an intensive, comprehensive weight loss program involving behavioral modification and low calorie diet.Patient has previously participated in a trial of behavior modification, increased physical activity and caloric restriction for at least 12 months or more but failed to lose weight or maintain weight that was lost.Reviewed how obesity and overweight can contribute to excess morbidity, including cardiometabolic disease, cancer, and many others. Patient is seeking medical weight management as part of treatment for weight-related disorders and/or for prevention of future complications. We have reviewed the metabolic and other benefits associated with weight loss. I have counseled extensively on the pathophysiology of and available treatment options for obesity, including lifestyle modification with changes to nutrition, physical activity, behaviors, and sleep health, multiple options for medications for weight loss.Reviewed prior laboratory results.Lab orders as below.There are no historical or PE findings suggestive of secondary causes of obesity necessitating further endocrine studies at this time.Reviewed effects of sleep on metabolic regulation and importance of sleep for weight loss. Reviewed and recommended good sleep hygiene activities to optimize sleep quantity and quality.Recommended [facility] dietitian video visits & in-ibeth messaging to further develop their nutrition plan based on healthier food choices & caloric restriction.Recommended following low calorie eating pattern following the [facility] [employer] plating method while emphasizing the importance of a healthy food environment. Will consider use of partial meal replacements.Discussed health benefits of regular physical activity and recommended implementing a gradual increase to at least 150 minutes of moderately intense exercise per week including at least 2 days of resistance training.Discussed important of iterative, sustainable changes, and strategies we will use to help implement changes. Reviewed evidence for logging, small but progressive goals, importance of a support network and accountability, which we will continue to provide.Recommended the patient start:Zepbound: This is a new and highly effective anti-obesity medication. There are NO formulary alternatives as there are no other drugs in this class approved for obesity treatment.Not Available or Recommended: -Contrave: patient is currently on Bupropion and her mood is currently stable. -Topiramate: history of kidney stones. -Orlistat: patient has a job/lifestyle that does not allow for frequent/urgent trips to the restroom as is common with Orlistat. -Phentermine/Qsymia: As I am unable to see patient for in-person visits, I cannot prescribe controlled substances.We reviewed side effects, medication administration, long-term use, and plan for discontinuation if not effective, defined as <5% loss in 3 months. Patient denies history of heart disease, glaucoma, seizures, bipolar disorder, pancreatitis, bowel obstruction, purging, drug abuse, or current opioid use. Denies personal/family history of Medullary Thyroid Cancer or MEN 2A/2B syndrome. No history of DM retinopathy.Medication list was reviewed for potential drug-drug interactions.Patient not currently on contraception, and also not sexually active at this time.LIPID PANEL WITH REFLEX TO DIRECT LDLVITAMIN D,25-OH,TOTAL,IAFOLATE, RBCVITAMIN B1 (THIAMINE), BLOOD, LC/MS/MSZINC, RBCINSULINCOMPREHENSIVE METABOLIC PANELCBC (INCLUDES DIFF/PLT) (REFL)VITAMIN B12TSH W/REFLEX TO [id number] A (RETINOL)HEMOGLOBIN D3nYVFA, TIBC AND FERRITIN PANELPTH, INTACT AND CALCIUM (REFL) Oct 31, 4Dec 05, 2024Dec 05, 2024Dec 05, 2024Dec 05, 2024Dec 05, 2024Dec 05, 2024Dec 05, 2024Dec 05, 2024Dec 05, 2024Dec 05, 2024Dec 05, 2024Dec 05, 2024Dec 05, 2024Dec 05, 2024Dec 05, 2024Dec 05, 2024Dec 05, 2024Dec 05, 2024Dec 05, 2024Dec 05, 2024Dec 05, 2024Dec 05, 2024Dec 05, 2024Dec 05, 2024Dec 05, 2024Dec 05, 2024Dec 05, 2024Dec 05, 2024Dec 05, 2024Dec 05, 2024Dec 05, 2023 Encounters Encounter Type Performer Location Encounter Date Encoun ter Notes unknown GABY DIANELYS [place] [id number] 7:00: 00Z no notes unknown Kiki Vergara - [id number] 9:30: 00Z no notes unknown Lashon Jennifer [facility] 0185-47-02T27:58: 00Z no notes unknown Kiki Vergara - 1581-90-15E7 6:30: 00Z no notes unknown Kiki Vergara - 7124-81-44X5 1:30: 00Z no notes unknown Kiki Vergara - 8774-76-81H7 4:53: 00Z no notes unknown Kiki Vergara - 5083-73-58U6 8:40: 00Z no notes Kiki Vergara [facility] 2024-12-06 no notes unknown Lashon Rodriguez [facility] 5203-48-28M18:00: 00Z no notes unknown GABY IVORY [facility] 1442-33-47U92:00: 00Z no notes unknown Lashon Rodriguez [facility] 7200-25-59N08:00: 00Z no notes unknown Kiki Vergara - 9952-38-11I2 6:30: 00Z no notes unknown Lashon [facility] 7051-95-46B07:40: 00Z no notes unknown Kiki Vergara - 2797-32-20Q7 8:30: 00Z no notes unknown Evelyn Carter [facility] 1547-11-97T88:00: 00Z no notes GABY IVORY [facility] 2024-10-31 no notes GABY Michelet [place] 2024-11-28 no no viktor Patient Care team information Name Category Status Period Participants - Episode of care-focu sed care team Proposed 1158-44-79E46:30:24+00:00 - 6153-61-41C71:30:24+00:00 - - Episode of care-focu sed care team Proposed 9482-08-11U54:13:33+00:00 - 3718-92-48Y34:13:33+00:00 - - Episode of care-focu sed care team Proposed 8379-80-75O86:37:40+00:00 - 5278-97-21S48:37:40+00:00 - - Episode of care-focu sed care team Proposed 8461-14-43C52:09:49+00:00 - 6663-44-26E37:09:49+00:00 - - Episode of care-focu sed care team Proposed 8128-01-63G73:11:15+00:00 - 5564-64-32S05:11:15+00:00 - - Episode of care-focu sed care team Proposed 7253-99-19P09:25:50+00:00 - 5740-10-62F97:25:50+00:00 - - Episode of care-focu sed care team Proposed 9283-76-95E17:52:11+00:00 - 1159-71-15R91:52:11+00:00 - - Episode of care-focu sed care team Proposed 2256-14-08C59:59:10+00:00 - 8173-14-54D46:59:10+00:00 - - Episode of care-focu sed care team Proposed 7165-75-71K07:39:03+00:00 - 2945-16-89L47:39:03+00:00 - - Episode of care-focu sed care team Proposed 6877-29-78A82:16:53+00:00 - 7471-96-39U24:16:53+00:00 - - Episode of care-focu sed care team Proposed 0890-86-15R94:38:23+00:00 - 3819-10-47K67:38:23+00:00 - - - Proposed period not known - - Episode of care-focu sed care team Proposed 9231-57-81O19:16:41+00:00 - 2041-02-52X05:16:41+00:00 - - Episode of care-focu sed care team Proposed 9343-75-34D64:16:41+00:00 - 8353-41-38Q22:16:41+00:00 - - Episode of care-focu sed care team Proposed 2842-26-08Q20:16:35+00:00 - 1618-22-71C61:16:35+00:00 - - Episode of care-focu sed care team Proposed 3919-04-96V59:15:54+00:00 - 2400-72-16M97:15:54+00:00 - - Episode of care-focu sed care team Proposed 2866-77-09U21:35:25+00:00 - 9847-32-54L11:35:25+00:00 - - Episode of care-focu sed care team Proposed 7651-14-69B58:33:29+00:00 - 3848-78-24R01:33:29+00:00 - - - Proposed period not known - - Episode of care-focu sed care team Proposed 7950-39-81I97:11:42+00:00 - 8257-17-81M68:11:42+00:00 - - Episode of care-focu sed care team Proposed 6690-43-43G33:53:21+00:00 - 2466-62-89V27:53:21+00:00 - - - Proposed period not known - - Episode of care-focu sed care team Proposed 2926-87-59E11:29:16+00:00 - 3877-89-09L79:29:16+00:00 - Notes Author - Date Note - 3854-78-19R79:29:17+00 :00 Not Available Evelyn Carter - 9092-65-66Z27:52:12+00 :00 no notes - 1520-83-56W47:53:22+00 :00 Not Available - 6103-72-24L68:16:41+00 :00 2024-11-28 09:00:00 see HPIDiet: Please list any food allergies / sensitivities you have, as well as any foods you avoid for temple or personal reasons: N/A. Don't like fish or seafood, or mushrooms. - 9709-18-35H93:35:25+00:00* No data available - 5204-38-77V80:29:17+00:00* No Information - 7646-14-37Z83:39:03+00:00no notes- 3346-06-25Y60:25:50+00:00* Date of Service Physical Exam 2025-02-06 11:40:00 General: NAD, Alert, well-appearing. Has obesity. Vital signs noted.Eyes: Lids/conjunctivae normal. EOMI.HENT: NormocephalicNeck: No goiter visualizedResp: Breathing comfortably on room airMSS: No deformities.NS: Alert & oriented. Normal speech.Skin: No lesions, rashes noted.Psych: Affect and mood appropriate. - 0077-31-17B13:09:49+00:00* Date of Service Review of Systems 2025-03-19 15:00:00 per HPI - 2623-66-17Z28:25:50+00:00* Date of Service Assessments 2025-02-06 11:40:00 Obstructive sleep ap alyssa syndromeHyperlipidemiaOverweight/ObesitySleep:Nutrition:Behavior Modification:Weight Medications:CardiomyopathyHistory of bariatric surgeryAnxiety and depressionObesity, Class III, BMI 40-49.9 (morbid obesity) - 8644-04-94W05:39:03+00:00* Date of Service Physical Exam 2025-01-09 13:58:00 General: NAD, Alert, well-appearing. Has obesity. Vital signs noted.Eyes: Lids/conjunctivae normal. EOMI.HENT: NormocephalicNeck: No goiter visualizedResp: Breathing comfortably on room airMSS: No deformities.NS: Alert & oriented. Normal speech.Skin: No lesions, rashes noted.Psych: Affect and mood appropriate. - 6196-53-06U73:09:49+00:00* Date of Service Assessments 2025-03-19 15:00:00 Obstructive sleep ap alyssa syndromeHyperlipidemiaOverweight/ObesitySleep:Nutrition:Behavior Modification:Weight Medications:CardiomyopathyHistory of bariatric surgeryAnxiety and depressionObesity, Class III, BMI 40-49.9 (morbid obesity) - 2847-81-61U84:15:56+00:00no notes- 7661-15-00X50:52:12+00:00* Date of Service Review of Systems 2025-02-06 11:40:00 per HPI Evelyn Emma - 6087-57-13Y87:09:49+00:00no Jailene JersonKarla - 3505-50-65T69:25:50+00:00no notes- 1887-87-64H75:11:43+00:00* Date of Service Physical Exam 2024-10-31 09:00:00 General: NAD, Alert, well-appearing. Has obesity.Eyes: Lids/conjunctivae normal. Glasses present.Resp: Breathing comfortably on room airNS: Alert & oriented. Normal speech.Psych: Affect and mood appropriate; emotional/tearful at times. - 9310-32-23I56:16:54+00:00no notes- 8248-52-86Q54:11:43+00:00* Date of Service Assessments 2024-10-31 09:00:00 Assessment- History of cardiomyopathy, with ongoing management with cardiologst.- History of tremors (anxiety vs. essential tremor vs. antidepressant side effects?), with no definitive diagnosis of Parkinson's, but noted familial history of Parkinson's disease (mother).- Sleep apnea, managed with CPAP.- No confirmed diagnosis of TIA or mini-stroke, but noted past imaging suggesting brain ischemia.- Depression and anxiety, currently managed with trintellix and bupropion.- History of kidney stones, avoid topiramate and topiramate containing medications.- Asymptomatic gallstones.- Recent constipation requiring visit to the ER. Resolved s/p 3 enemas. Is on fiber supplement and increased water intake. Plan- Laboratory Tests: Repeat bariatric labs to assess vitamin levels, nutrients, and protein levels. This will help in understanding the nutritional status and guide dietary recommendations. - Cardiology Follow-Up: Contact the carbon capture power plant engineer to obtain and review the heart monitor results. This is crucial to ensure there are no cardiac issues that could be exacerbated by weight management medications.- Weight Management: Initiate an injectable medication for weight management (Zepbound). This approach is expected to aid in behavior change and weight loss, which will be beneficial for overall health improvement.- Surgical Consultation: Consider a consultation with a recommended former colleague (Dr. Get Lake) for a potential conversion from a gastric sleeve to a bypass. This is suggested as a long-term strategy for weight management.- Dietary Recommendations: Continue taking fiber gummies twice daily and ensure adequate water intake to prevent constipation and support digestive health. Increase protein intake with an initial goal of 70-110 gm per day. Adjust rec's per RD. - Follow-Up Appointment: Schedule a follow-up appointment in approximately one month to assess progress and make any necessary adjustments to the treatment plan.Prescription- Zepbound 2.5 mg after reviewing blood work and heart monitor results/report from carbon capture power plant engineer's office.Appointments- Follow-up appointment in 4 weeks.Obesity, Class III, BMI 40-49.9History of bariatric surgeryEssential hypertensionCardiomyopathyHyperlipidemiaLow serum albuminKidney stonesObstructive sleep apnea syndromeAnxiety and depressionHeart palpitationsTransient cerebral ischemiaDouble aortic archGallstonesEstablishing Care for Overweight/Obesity Treatment:Laboratory Testing:Sleep:Nutrition:Physical Activity & Exercise:Behavior Modification:Weight Medications: - 2487-09-02M89:38:23+00:00no notes- 0039-04-33A61:16:36+00:00no notes- 0902-47-11I20:16:41+00:00* Date of Service Physical Exam 2024-11-28 09:00:00 General: Alert, well -appearing.Eyes: Eyelids and sclera normal.Resp: Breathing is non-labored, no audible wheeze; room air.NS: Alert and oriented. Normal speech.Psych: Affect and mood appropriate. - 9287-64-53V85:29:17+00:00no notes- 4056-43-11H95:13:33+00:00* Date of Service Physical Exam 2025-04-30 15:00:00 General: NAD, Alert, well-appearing. Has obesity. Vital signs noted.Eyes: Lids/conjunctivae normal. EOMI.HENT: NormocephalicNeck: No goiter visualizedResp: Breathing comfortably on room airMSS: No deformities.NS: Alert & oriented. Normal speech.Skin: No lesions, rashes noted.Psych: Affect and mood appropriate. - 3115-60-20W39:13:33+00:00* Date of Service Review of Systems 2025-04-30 15:00:00 per HPI - 5152-18-00X12:09:49+00:00* Date of Service Physical Exam 2025-03-19 15:00:00 General: NAD, Alert, well-appearing. Has obesity. Vital signs noted.Eyes: Lids/conjunctivae normal. EOMI.HENT: NormocephalicNeck: No goiter visualizedResp: Breathing comfortably on room airMSS: No deformities.NS: Alert & oriented. Normal speech.Skin: No lesions, rashes noted.Psych: Affect and mood appropriate. - 7386-59-65J64:33:29+00:00* Date of Service Review of Systems 2024-11-28 09:00:00 see HPIDiet: Please list any food allergies / sensitivities you have, as well as any foods you avoid for temple or personal reasons: N/A. Don't like fish or seafood, or mushrooms. - 2188-68-87B67:16:41+00:00no notes- 9698-06-81Q59:11:43+00:00no notes- 5808-83-82S03:29:17+00:00* Not Available - 7400-14-26M73:59:11+00:00no notes- 7542-47-20L02:16:54+00:00* Date of Service Physical Exam 2024-12-26 09:00:00 General: NAD, Alert, well-appearing. Vital signs noted.Eyes: Lids/conjunctivae normal. EOMI.Neck: No goiter visualizedResp: Breathing comfortably on room airNS: Alert & oriented. Normal speech.Psych: Affect and mood appropriate. - 1171-87-91Q85:33:29+00:00* Date of Service Physical Exam 2024-11-28 09:00:00 General: Alert, well -appearing.Eyes: Eyelids and sclera normal.Resp: Breathing is non-labored, no audible wheeze; room air.NS: Alert and oriented. Normal speech.Psych: Affect and mood appropriate. - 0526-65-75J56:16:42+00:00* Date of Service Physical Exam 2024-10-31 09:00:00 General: NAD, Alert, well-appearing. Has obesity.Eyes: Lids/conjunctivae normal. Glasses present.Resp: Breathing comfortably on room airNS: Alert & oriented. Normal speech.Psych: Affect and mood appropriate; emotional/tearful at times. Evelyn Carter - 4890-64-97D45:13:33+00:00no notes- 2966-91-73F92:16:54+00:00* Date of Service Assessments 2024-12-26 09:00:00 Obesity, class 3Sleep:Nutrition:Physical Activity:Behavior Modification:Weight Medications:Moderate major depression, single episodeObstructive sleep apnea syndromeHeart palpitationsIntertrigoGallstonesHyperlipidemiaAngiomyolipoma of kidneyCongenital heart diseaseGallstonesVISIT Zachariah Ocampo,- Consider starting a bariatric vitamin. See handout and discuss with Kiki. - You l l need to stop medication one week before surgery. I recommend waiting to restart until you r e off pain medication and bowel movements are normal. - Once you r e done with the Zepbound 2.5 mg, we l l plan to increase to 5 mg. - 8242-46-97Y12:53:22+00:00* No Information - 4033-86-47U39:16:42+00:00no notes- 7367-73-27X65:16:54+00:00* Date of Service Review of Systems 2024-12-26 09:00:00 per HPI - 8009-27-52X84:35:25+00:00* Not Available - 6881-38-06R71:25:50+00:00* Date of Service Review of Systems 2025-02-06 11:40:00 per HPI - 6416-54-57E13:16:42+00:00* Date of Service Review of Systems 2024-10-31 09:00:00 see HPIDiet: Please list any food allergies / sensitivities you have, as well as any foods you avoid for temple or personal reasons: N/A. Don't like fish or seafood, or mushrooms. Evelyn Carter - 8550-96-68B70:30:24+00:00no notes- 3945-97-66P10:35:25+00:00* No data available - 5851-08-70K21:16:42+00:00* Date of Service Assessments 2024-10-31 09:00:00 Assessment- History of cardiomyopathy, with ongoing management with cardiologst.- History of tremors (anxiety vs. essential tremor vs. antidepressant side effects?), with no definitive diagnosis of Parkinson's, but noted familial history of Parkinson's disease (mother).- Sleep apnea, managed with CPAP.- No confirmed diagnosis of TIA or mini-stroke, but noted past imaging suggesting brain ischemia.- Depression and anxiety, currently managed with trintellix and bupropion.- History of kidney stones, avoid topiramate and topiramate containing medications.- Asymptomatic gallstones.- Recent constipation requiring visit to the ER. Resolved s/p 3 enemas. Is on fiber supplement and increased water intake. Plan- Laboratory Tests: Repeat bariatric labs to assess vitamin levels, nutrients, and protein levels. This will help in understanding the nutritional status and guide dietary recommendations. - Cardiology Follow-Up: Contact the carbon capture power plant engineer to obtain and review the heart monitor results. This is crucial to ensure there are no cardiac issues that could be exacerbated by weight management medications.- Weight Management: Initiate an injectable medication for weight management (Zepbound). This approach is expected to aid in behavior change and weight loss, which will be beneficial for overall health improvement.- Surgical Consultation: Consider a consultation with a recommended former colleague (Dr. Get Lake) for a potential conversion from a gastric sleeve to a bypass. This is suggested as a long-term strategy for weight management.- Dietary Recommendations: Continue taking fiber gummies twice daily and ensure adequate water intake to prevent constipation and support digestive health. Increase protein intake with an initial goal of 70-110 gm per day. Adjust rec's per RD. - Follow-Up Appointment: Schedule a follow-up appointment in approximately one month to assess progress and make any necessary adjustments to the treatment plan.Prescription- Zepbound 2.5 mg after reviewing blood work and heart monitor results/report from carbon capture power plant engineer's office.Appointments- Follow-up appointment in 4 weeks.Obesity, Class III, BMI 40-49.9History of bariatric surgeryEssential hypertensionCardiomyopathyHyperlipidemiaLow serum albuminKidney stonesObstructive sleep apnea syndromeAnxiety and depressionHeart palpitationsTransient cerebral ischemiaDouble aortic archGallstonesEstablishing Care for Overweight/Obesity Treatment:Laboratory Testing:Sleep:Nutrition:Physical Activity & Exercise:Behavior Modification:Weight Medications: Evelyn Carter - 0967-54-51Y86:37:40+00:00no elizabeth- 6802-80-64P40:11:43+00:00* Date of Service Review of Systems 2024-10-31 09:00:00 see HPIDiet: Please list any food allergies / sensitivities you have, as well as any foods you avoid for temple or personal reasons: N/A. Don't like fish or seafood, or mushrooms. - 8112-09-03R87:53:22+00:00no notes- 3834-68-14P25:33:29+00:00* Date of Service Assessments 2024-11-28 09:00:00 Assessment- Nausea p otentially related to medication or meal timing, with no vomiting reported.- High insulin levels despite normal A1C.- Low-normal iron levels, not anemic, possibly contributing to fatigue and feeling cold.Plan- Add MiraLAX to the daily routine to help regulate bowel movements. It can be mixed into a water bottle and consumed throughout the day. This is a non-stimulant laxative that should help soften stools and promote regularity.- Consider starting an iron supplement to address low iron levels, but only after bowel movements are more regular. - Continue the current medication dose for another month if nausea and constipation persist. - Begin an exercise routine with small, manageable goals. - Schedule a follow-up appointment with Dr. Arthur for next month. Prescription- MiraLAX, add to water bottle daily to help regulate bowel movements and soften stool.Appointments- Appointment with dietitian on December 06, 2024- Schedule appointment with Dr. Arthur at next availableObesity, Class III, BMI 40-49.9History of bariatric surgeryEssential hypertensionHyperlipidemiaKidney stonesObstructive sleep apnea syndromeAnxiety and depressionGallstonesNutrition: Will work with assigned [facility] Registered Dietitian (RD), through video visits and texting to continue work on healthier food choices and caloric restriction/modification.Physical Activity: Discussed health benefits of regular physical activity.Behavior modification: Continue working on sustainable changes, photo logging, support and accountability, which we will continue to provide.Sleep: Goal of 6.5 to 7.5 hours of sleep daily. Reviewed importance of sleep and it's role in weight loss.Attestation:I personally spent a total of 30 minutes on care for this patient on the date of the encounter. This includes [id number] time during the video telehealth visit, as well as non [id number]-[id number] time spent on chart review, documentation, medication reconciliation and care coordination. Persons participating in telemedicine service: Nurse Practitioner and patient only. - Location [place]: [place]- Location of clinician: [place] - 9386-54-50P83:52:12+00:00* Date of Service Physical Exam 2025-02-06 11:40:00 General: NAD, Alert, well-appearing. Has obesity. Vital signs noted.Eyes: Lids/conjunctivae normal. EOMI.HENT: NormocephalicNeck: No goiter visualizedResp: Breathing comfortably on room airMSS: No deformities.NS: Alert & oriented. Normal speech.Skin: No lesions, rashes noted.Psych: Affect and mood appropriate. - 9355-95-31Z65:39:03+00:00* Date of Service Review of Systems 2025-01-09 13:58:00 per [facility] - 9042-48-20L39:39:03+00:00* Date of Service Assessments 2025-01-09 13:58:00 Obstructive sleep ap alyssa syndromeHyperlipidemiaOverweight/ObesitySleep:Nutrition:Behavior Modification:Weight Medications:CardiomyopathyHistory of bariatric surgeryAnxiety and depressionObesity, Class III, BMI 40-49.9 (morbid obesity) Evelyn Carter - 1155-70-56F73:11:16+00:00no elizabeth- 2474-23-59F20:29:17+00:00* Not Available - 6518-82-41X30:15:56+00:00* Date of Service Assessments 2024-10-31 09:00:00 Assessment- History of cardiomyopathy, with ongoing management with cardiologst.- History of tremors (anxiety vs. essential tremor vs. antidepressant side effects?), with no definitive diagnosis of Parkinson's, but noted familial history of Parkinson's disease (mother).- Sleep apnea, managed with CPAP.- No confirmed diagnosis of TIA or mini-stroke, but noted past imaging suggesting brain ischemia.- Depression and anxiety, currently managed with trintellix and bupropion.- History of kidney stones, avoid topiramate and topiramate containing medications.- Asymptomatic gallstones.- Recent constipation requiring visit to the ER. Resolved s/p 3 enemas. Is on fiber supplement and increased water intake. Plan- Laboratory Tests: Repeat bariatric labs to assess vitamin levels, nutrients, and protein levels. This will help in understanding the nutritional status and guide dietary recommendations. - Cardiology Follow-Up: Contact the carbon capture power plant engineer to obtain and review the heart monitor results. This is crucial to ensure there are no cardiac issues that could be exacerbated by weight management medications.- Weight Management: Initiate an injectable medication for weight management (Zepbound). This approach is expected to aid in behavior change and weight loss, which will be beneficial for overall health improvement.- Surgical Consultation: Consider a consultation with a recommended former colleague (Dr. Get Lake) for a potential conversion from a gastric sleeve to a bypass. This is suggested as a long-term strategy for weight management.- Dietary Recommendations: Continue taking fiber gummies twice daily and ensure adequate water intake to prevent constipation and support digestive health. Increase protein intake with an initial goal of 70-110 gm per day. Adjust rec's per RD. - Follow-Up Appointment: Schedule a follow-up appointment in approximately one month to assess progress and make any necessary adjustments to the treatment plan.Prescription- Zepbound 2.5 mg after reviewing blood work and heart monitor results/report from carbon capture power plant engineer's office.Appointments- Follow-up appointment in 4 weeks.Obesity, Class III, BMI 40-49.9History of bariatric surgeryEssential hypertensionCardiomyopathyHyperlipidemiaLow serum albuminKidney stonesObstructive sleep apnea syndromeAnxiety and depressionHeart palpitationsTransient cerebral ischemiaDouble aortic archGallstonesEstablishing Care for Overweight/Obesity Treatment:Laboratory Testing:Sleep:Nutrition:Physical Activity & Exercise:Behavior Modification:Weight Medications: 2024-11-28 09:00:00 Assessment- Nausea p otentially related to medication or meal timing, with no vomiting reported.- High insulin levels despite normal A1C.- Low-normal iron levels, not anemic, possibly contributing to fatigue and feeling cold.Plan- Add MiraLAX to the daily routine to help regulate bowel movements. It can be mixed into a water bottle and consumed throughout the day. This is a non-stimulant laxative that should help soften stools and promote regularity.- Consider starting an iron supplement to address low iron levels, but only after bowel movements are more regular. - Continue the current medication dose for another month if nausea and constipation persist. - Begin an exercise routine with small, manageable goals. - Schedule a follow-up appointment with Dr. Arthur for next month. Prescription- MiraLAX, add to water bottle daily to help regulate bowel movements and soften stool.Appointments- Appointment with dietitian on December 06, 2024- Schedule appointment with Dr. Arthur at next availableObesity, Class III, BMI 40-49.9History of bariatric surgeryEssential hypertensionHyperlipidemiaKidney stonesObstructive sleep apnea syndromeAnxiety and depressionGallstonesNutrition: Will work with assigned [facility] Registered Dietitian (RD), through video visits and texting to continue work on healthier food choices and caloric restriction/modification.Physical Activity: Discussed health benefits of regular physical activity.Behavior modification: Continue working on sustainable changes, photo logging, support and accountability, which we will continue to provide.Sleep: Goal of 6.5 to 7.5 hours of sleep daily. Reviewed importance of sleep and it's role in weight loss.Attestation:I personally spent a total of 30 minutes on care for this patient on the date of the encounter. This includes hosm-nv-ixsj time during the video telehealth visit, as well as non wwmc-wr-wrgr time spent on chart review, documentation, medication reconciliation and care coordination. Persons participating in telemedicine service: Nurse Practitioner and patient only. - [place] - [id number]:13:33+00:00* Date of Service Assessments 2025-04-30 15:00:00 Obstructive sleep ap alyssa syndromeHyperlipidemiaOverweight/ObesitySleep:Nutrition:Behavior Modification:Weight Medications:CardiomyopathyHistory of bariatric surgeryAnxiety and depressionObesity, Class III, BMI 40-49.9 (morbid obesity) - 2044-45-06Y41:33:29+00:00no notes- [id number]:16:41+00:00* Date of Service Assessments 2024-11-28 09:00:00 Assessment- Nausea p otentially related to medication or meal timing, with no vomiting reported.- High insulin levels despite normal A1C.- Low-normal iron levels, not anemic, possibly contributing to fatigue and feeling cold.Plan- Add MiraLAX to the daily routine to help regulate bowel movements. It can be mixed into a water bottle and consumed throughout the day. This is a non-stimulant laxative that should help soften stools and promote regularity.- Consider starting an iron supplement to address low iron levels, but only after bowel movements are more regular. - Continue the current medication dose for another month if nausea and constipation persist. - Begin an exercise routine with small, manageable goals. - Schedule a follow-up appointment with Dr. Arthur for next month. Prescription- MiraLAX, add to water bottle daily to help regulate bowel movements and soften stool.Appointments- Appointment with dietitian on December 06, 2024- Schedule appointment with Dr. Arthur at next availableObesity, Class III, BMI 40-49.9History of bariatric surgeryEssential hypertensionHyperlipidemiaKidney stonesObstructive sleep apnea syndromeAnxiety and depressionGallstonesNutrition: Will work with assigned [facility] Registered Dietitian (RD), through video visits and texting to continue work on healthier food choices and caloric restriction/modification.Physical Activity: Discussed health benefits of regular physical activity.Behavior modification: Continue working on sustainable changes, photo logging, support and accountability, which we will continue to provide.Sleep: Goal of 6.5 to 7.5 hours of sleep daily. Reviewed importance of sleep and it's role in weight loss.Attestation:I personally spent a total of 30 minutes on care for this patient on the date of the encounter. This includes rrcu-vi-zkbl time during the video telehealth visit, as well as non uelw-cl-nmvd time spent on chart review, documentation, medication reconciliation and care coordination. Persons participating in telemedicine service: Nurse Practitioner and patient only. - [place] - [id number]:52:12+00:00* Date of Service Assessments 2025-02-06 11:40:00 Obstructive sleep ap alyssa syndromeHyperlipidemiaOverweight/ObesitySleep:Nutrition:Behavior Modification:Weight Medications:CardiomyopathyHistory of bariatric surgeryAnxiety and depressionObesity, Class III, BMI 40-49.9 (morbid obesity) - 2602-08-61O59:53:22+00:00* Not Available - [id number]:35:25+00:00no notes- [id number]:53:22+00:00* Not Available
--- OUTSIDE RECORDS SUMMARY | 2025-06-09 02:00 | XMS_ITS | Encounter Summary ---
Author Organization [facility] Address [facility]ly [facility] [place] [address] Care Team Providers Care Surplus Property Disposal Agent Name Role Phone Saad Soria MD Primary Care Provider [phone] Margie Newton MD Primary Care Provider [phone] Encounter Details Date Type Department Care Team (Late st Contact Info) Description 04/22/2022 MyChart Message Enc [facility] Family Medicine - [place] [address] [place] [address] Saad Soria MD [address] [address] Covid Tests Social History Tobacco [...] Sex Assigned at Female 12/13/2024 4:26 PM RAIL CAR REPAIRMAN Legal Sex Female 8:27 PM CDT Gender Identity Female 12/15/2021 5:23 AM RAIL CAR REPAIRMAN Sexual Orientation Straight 12/15/2021 5: 23 AM RAIL CAR REPAIRMAN COVID-19 Exposure Response Date Recorded In the [...] st Contact Info) Description 10/02/2025 1:30 PM RAIL CAR REPAIRMAN Office [facility] [address] [place] [address] Deisi Haji MD [facility] [address] [place] [address] documented as of this encounter Visit Diagnoses Not on filedocumented in this encounter Additional Health Concerns Assessment Noted Time PHQ-9 Depression Total Score: 0 09/01/20 21 9:38 AM CDT documented as of this encounter Care Teams Surplus Property Disposal Agent Relationship Specialty Start Date End Date Saad Soria MD PCP - General FAMILY PRACTICE 12/03/19 05/26/22 Margie Newton MD [address] [place] [address] PCP - General FAMILY PRACTICE 05/27/22 documented as of this encounter
--- OUTSIDE RECORDS SUMMARY | 2025-06-09 02:00 | XMS_ITS | Encounter Summary ---
Author Organization [facility] Address [facility] [place] [address] Care Team Providers Care Rock Mason Name Role Phone Margie Newton MD Primary Care Provider [phone] Encounter Details Date Type Department Care Team (Late st Contact Info) Description 10/02/2024 Brightkite Message [facility] [address] [place] [address] [place] [address] [place] [address] ER Visit 10/02/2024 Social History Tobacco [...] Sex Assigned at Female 12/13/2024 4:26 PM LOCKSTITCHER Legal Sex Female 8:27 PM CDT Gender Identity Female 12/15/2021 5:23 AM LOCKSTITCHER Sexual Orientation Straight 12/15/2021 5: 23 AM LOCKSTITCHER documented as of this encounter Functional Status * Calculated C-SSRS Risk Score (Lifetime/Recent) Answer Date of Assessment Author Status No Risk Indicated 10/02/2024 9:45 AM Fer Bowser, BAILEY Active * [place] Suicide Severity Rating Scale (Screener/Recent Self-Report) Question Answer Date of Assessment Author Status 1. Wish to be (Past 1 Month) No 10/02/2024 9:45 AM Fer Bowser, RN Active 2. Non-Specific Active Suicidal Thoughts (Past 1 Month) No 10/02/2024 9:45 AM Fer Bowser RN Activ e 6. Suicidal Behavior (Lifetime) No 10/02/2024 9:45 AM Fer Bowser, RN Active documented as of this encounter Plan of Treatment Upcoming Encounters Date Type Department Care Team (Late st Contact Info) Description 10/02/2025 1:30 PM LOCKSTITCHER [facility] [address] [place] [address] Deisi Haji MD [facility] [address] [place] [address] documented as of this encounter Visit Diagnoses Not on filedocumented in this encounter Additional Health Concerns Assessment Noted Time PHQ-9 Depression Total Score: 6 07/24/20 24 2:37 PM CDT documented as of this encounter Care Teams Rock Mason Relationship Specialty Start Date End Date Margie Newton MD [address] [place] [address] PCP - General FAMILY PRACTICE 05/27/22 documented as of this encounter
--- OUTSIDE RECORDS SUMMARY | 2025-06-09 02:00 | XMS_ITS ---
Author Organization [facility] [place] ([address]) Address [address] [place] [address] Care Team Providers Care Clinical Laboratory Assistant Name Role Phone Margie Newton Primary Care Provider UnavailRosanna Welch Unavailable [phone] Saad Soria Unavailable Unavailable ZZ-Migration, Provider Unavailable Unavailab le [facility] Encounter Medications Medication SIG (Take, Route, Frequency, Duration) Notes Start Date End Date Status Carvedilol 6.25 MG 1 tab(s) orally 2 times a day; Duration: 30 day(s) Active Trintellix 5 MG 1 tab(s) orally once a day; Duration: 30 day(s) 04/25/2024 Active Xyzal Allergy 24HR 5 MG 1 tablet PO daily; Duration: 30 01/05/2022 Not-Taking Vitamin C 500 MG 1 tab(s) chewed once a day; Duration: 30 day(s) Not-Taking Auvi-Q 0.3 MG/0.3ML as directed intramuscularly once; Duration: 30 day(s) Active Sertraline HCl 50 MG 1 tab(s) orally onc e a day; Duration: 30 day(s) Active Coenzyme Q10 300 MG 1 cap(s) orally once a day Active Vitamin D3 125 MCG (5000 UT) as directed orally once a day; Duration: 30 day(s) Active valACYclovir HCl 1 GM 1 tab(s) orally 2 times a day; Duration: 5 day(s) Active buPROPion HCl ER (XL) 150 MG 1 tab(s) orally every 24 hours; Duration: 30 day(s) Active Rosuvastatin Calcium 10 MG 1 tab(s) orally once a day Active Flonase Allergy Relief 50 MCG/ACT 1 spray(s) in each nostril once a day Active Calcium 500+D 500 MG-400 INTL UNITS 1 TAB(S) CHEWED 2 TIMES A DAY; Duration: 30 DAY(S) *Please review and pick correct strength-formula tion from Bubbli options. If intended option is not shown, discontinue and re-order from Quick Search* Active Aspirin 81 MG 1 tab(s) chewed once a day; Duration: 30 day(s) Active Fish Oil 1000 MG 1 cap(s) orally once a day; Duration: 30 day(s) Active Nystatin 117953 UNIT/GM 1 ibeth applied topically 3 times a day Active Ramipril 5 MG 1 cap(s) orally once a day Active SIT (TRADITIONAL) VARIABLE PER SCHEDULE SC PER SCHEDULE; Duration: TO BE DETERMINED *Please review for potential replacement for e-prescription and drug interaction check* Active Xyzal Allergy 24HR 5 MG 1 tablet PO daily; Duration: 30 Active Azelastine-Fluticaso ne 137 MCG-50 MCG/INH 1 SPRAY(S) INTRANASALLY 2 TIMES A DAY; Duration: 30 DAYS *Please review and pick correct strength-formula tion from Bubbli options. If intended option is not shown, discontinue and re-order from Quick Search* 04/25/2024 Active Fexofenadine HCl 180 MG 1 tab(s) orally once a day Not-Taking Rosuvastatin Calcium 10 MG 1 tab(s) orally once a day; Duration: 30 day(s) Not-Taking Quinapril HCl 10 MG 1 tab(s) orally once a day; Duration: 30 day(s) Not-Taking Famotidine 40 MG 1 tab(s) orally once a day (at bedtime) Not-Taking Levocetirizine Dihydrochloride 5 MG 1 tab(s) orally once a day (in the evening); Duration: 30 day(s) Not-Taking Xyzal Allergy 24HR *Please revie w and pick correct strength-formula tion from Bubbli options. If intended option is not shown, discontinue and re-order from Quick Search* Not-Taking Azelastine HCl 0.15 % 2 spray(s) intranasally 2 times a day; Duration: 30 day(s) 06/08/2022 Not-Taking Encounters Encounter [facility] Date [facility] [address] [facility]/11/[facility]24 Provider Dc Allergic rhinitis due to pollen J30.1 Assessments Encounter Date Diagnosis (ICD Code) Assessment Notes Treatment Notes Treatment Clinical Notes Section Notes 05/11/2024 Allergic rhinitis due to pollen (ICD-10 - J30.1) Plan Of Treatment Medication Medication Name Sig Start Date Stop Date Notes SIT (TRADITIONAL) VARIABLE PER SCHEDULE SC PER SCHEDULE; Duration: TO BE DETERMINED *Please review for potential replacement for e-prescription and drug interaction check* Xyzal Allergy 24HR 5 MG 1 tablet PO daily; Duration: 30 Progress Notes * Damaris JACKSONDOB:1975 (50 yo F)Acc No.[id number]:05/11/2024 Patient: Damaris ORTIZ Provider: Kevin Nguyen :1975 A ge:49 Y S ex:Female Date:05/11/2024 Address:[address] [place], [place] [id number] Pcp:Margie Newton Subjective: * Chief Complaints: * [facility] . [facility] * Medical History: * Medications: T aking Xyzal Allergy 24HR 5 MG Tablet 1 tablet PO daily , Taking Nystatin 231900 UNIT/GM Powder 1 ibeth applied topically 3 [...] *Please review and pick correct strength-formulation [facility]. If intended option is not shown, [...] *Please review and pick correct strength-formulation from Bubbli options. If intended option is not shown, [...] *Please review and pick correct strength-formulation from Bubbli options. If intended option is not shown, [...] * Procedure Codes: * Electronic signature of Prov vinodr ZZ-Migration on 06/09/2025 at 01:59 AM CDT Sign off status: Pending * Provider: Kevin marin Migration Date: 0 05/11/2024 Generated for Sarbjit saucedo/Chivo/Malissa on: 0 06/09/2025 01:59 AM CDT
--- OUTSIDE RECORDS SUMMARY | 2025-06-09 02:00 | XMS_ITS | Clinical Summary ---
Author Organization [facility] Address [address] [place] [address] Phone Care Team Providers Care Tar Pot Man Name Role Phone Saad Soria MD Primary [...] Take 2 Grams by mouth daily. Active mskuh-9-dal-ep a-dpa-fish oil 1,050-1,200 mg Capsule Take by [...] on file Legal Sex Female 11:30 AM EDUCATION AND TRAINING MANAGER Gender Identity Not on file Sexual Orientation Not on file Last Filed Vital Signs Vital Sign Reading Time Taken Comments Blood Pressure 139/80 11/12/2020 6:52 PM EDUCATION AND TRAINING MANAGER Pulse 77 11/12/2020 6:52 PM EDUCATION AND TRAINING MANAGER Temperature 36.2 C (97.2 F) 11/12/2020 6:52 PM EDUCATION AND TRAINING MANAGER Respiratory Rate 20 11/12/2020 6:52 PM EDUCATION AND TRAINING MANAGER Oxygen Saturation 97% 11/12/2020 6:52 PM EDUCATION AND TRAINING MANAGER Inhaled Oxygen Concentration - - Weight 103.3 kg (227 lb 11.2 oz) 11/12/2020 1:40 PM EDUCATION AND TRAINING MANAGER Height 162.6 cm (5' 4) 11/12/2020 1:40 PM EDUCATION AND TRAINING MANAGER Body Mass Index 39.08 11/12/2020 1:40 PM EDUCATION AND TRAINING MANAGER Plan of Treatment Health Maintenance Due Date Last Done Comments DTAP/TDAP/TD VACCINES (1 - Tdap) 02/12/1995 HEPATITIS B VACCINES (1 of 3 - 19+ 3-dose series) 02/12/1995 HPV/Cotest (21-29) 02/12/1997 CERVICAL CANCER SCREENING 02/12/2006 HPV/Cotest (30-65) 02/12/2006 PAP SMEAR 02/12/2006 BREAST CANCER SCREENING 2016 COLORECTAL SCREENING 02/12/2021 Colorectal Cancer Screening 02/12/2021 FIT-DNA Q 3 years 02/12/2021 FIT/FOBT Q 1 year 02/12/2021 Flex Sig/CT Colonography Q 5 years 02/12/2021 INFLUENZA VACCINE (#1) 2025 1, 07/18/2020, 07/24/2019, Additional history exists Insurance BLUE ACCESS/TRUE BLUE PPO Care Teams Tar Pot Man Relationship Specialty Start Date End Date Saad Soria MD PCP - General Family Practice 11/05/20
--- OUTSIDE RECORDS SUMMARY | 2025-06-09 02:00 | XMS_ITS | Encounter Summary ---
Author Organization [facility] Address [facility] [place] [address] Care Team Providers Care Intrusion Analyst Name Role Phone Saad Soria MD Primary Care Provider [phone] Margie Newton MD Primary Care Provider [phone] Encounter Details Date Type Department Care Team (Late st Contact Info) Description 03/23/2021 MyChart Message Enc [facility] Family Medicine - [place] [address] [place] [id number] Saad Soria MD [address] [address] RE: Follow Up/Update Social History [...] Sex Assigned at Female 12/13/2024 4:26 PM OUTSIDE DEALER SALES REPRESENTATIVE Legal Sex Female 8:27 PM CDT Gender Identity Female 12/15/2021 5:23 AM OUTSIDE DEALER SALES REPRESENTATIVE Sexual Orientation Straight 12/15/2021 5: 23 AM OUTSIDE DEALER SALES REPRESENTATIVE COVID-19 Exposure Response Date Recorded In the [...] st Contact Info) Description 10/02/2025 1:30 PM OUTSIDE DEALER SALES REPRESENTATIVE [facility] [place] [address] Deisi Haji MD [facility] [address] [place] [address] documented as of this encounter Visit Diagnoses Not on filedocumented in this encounter Care Teams Intrusion Analyst Relationship Specialty Start Date End Date Saad Soria MD PCP - General FAMILY PRACTICE 12/03/19 05/26/22 Margie Newton MD [address] [place] [address] PCP - General FAMILY PRACTICE 05/27/22 documented as of this encounter
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
--- NOTE | 2025-06-09 04:30 | WPDHPUPDATE1 ---
History and Physical Update Update Date/Time: 06/09/25 04:30 History and Physical has been reviewed, including an updated exam of the patient. There are NO changes in the patient's condition. Risks, benefits, and alternatives have been discussed and questions answered. Patient agrees to proceed with procedure.
[2025-06-09] MEDS: LACTATED RINGERS 1,000 ML 30 ML IV CONT ×2 (13:00)
--- NOTE | 2025-06-09 13:19 | P.PNAN_ITS ---
Anes - Initial Pre Proc Eval Procedure: Operation Date: 06/09/25 14:00 Proposed Procedures p Excision Exposed Vaginal Mesh, Cystoscopy with Injection Bulking Agent - Abdelrahman Morales MD Date/Time: 06/09/25 13:19 Surgeon: Abdelrahman Morales MD Pre Op Diagnosis: exposed vaginal mesh, stress incont Patient Data Age: 50 Gender: F Height: 1.63 m Weight: 107.2 kg Last Vital Signs Temp 97.6 F 06/09/25 12:30 Pulse 62 06/09/25 12:30 Resp 16 06/09/25 12:30 BP 122/67 06/09/25 12:30 Pulse Ox 96 06/09/25 12:30 O2 Del Method Room Air 06/09/25 12:30 Allergies Allergy/AdvReac Type Severity Reaction Status Date / Time No Known Allergies Allergy Unverified 05/28/25 13:51 Home Medications ?Medication ?Instructions ?Recorded ?Confirmed ?Type bupropion HCl 150 mg 24 hr tablet, 150 mg PO DAILY #30 tabs 07/28/20 05/28/25 Rx extended release aspirin 81 mg tablet,delayed 81 mg PO HS 01/22/25 01/22/25 History release (Adult Low Dose Aspirin) azelastine 137 mcg-fluticasone 50 1 spray intranasal DAILY PRN 01/22/25 05/28/25 History mcg/spray nasal spray allergy symptoms biotin 2,500 mcg capsule 2,500 mcg PO DAILY 01/22/25 05/28/25 History carvedilol 25 mg tablet 25 mg PO BID 01/22/25 05/28/25 History cholecalciferol (vitamin D3) 125 125 mcg PO DAILY 01/22/25 05/28/25 History mcg (5,000 unit) tablet (Vitamin D3) inulin 2 gram chewable tablet 2 g PO QPM 01/22/25 05/28/25 History (Fiber Delights) levocetirizine 5 mg tablet (24HR 5 mg PO DAILY 01/22/25 05/28/25 History Allergy Relief) miconazole nitrate 2 % topical 1 applic topical BID PRN itching 01/22/25 05/28/25 History cream multivitamin with minerals-folic 2 tablet PO HS 01/22/25 05/28/25 History acid 200 mcg chewable tablet (Adult Multivitamin Gummies) nystatin 100,000 unit/gram topical 1 applic topical TID PRN itching 01/22/25 05/28/25 History powder (Klayesta) omega 3 350 mg-dha 235 mg-epa 90 1 cap PO DAILY 01/22/25 05/28/25 History mg-fish oil 597 mg capsule,delay rel (Amenia-3) oxybutynin chloride 10 mg 10 mg PO DAILY 01/22/25 05/28/25 History tablet,extended release 24 hr ramipril 5 mg capsule 5 mg PO HS 01/22/25 05/28/25 History rosuvastatin 10 mg tablet 10 mg PO HS 01/22/25 05/28/25 History tirzepatide (weight loss) 2.5 2.5 mg subcut WEEKLY 01/22/25 05/28/25 History mg/0.5 mL subcutaneous pen injector (Zepbound) vortioxetine 10 mg tablet 10 mg PO DAILY 01/22/25 05/28/25 History (Trintellix) Patient hx anesthesia problems: none Family hx anesthesia problems: none Results Review: All pre-operative results and documents have been reviewed as part of the pre- operative evaluation. [facility] Past Medical History Medical History Anxiety PAL (obstructive sleep apnea) Cardiomyopathy Surgical History Surgical History H/O gastric sleeve Family History Family History Mother Hypertension Social History Social History Smoking status: Never smoker Alcohol intake: current Alcohol use details: 1 PER MONTH Substance use type: does not use Living arrangements: alone Spiritual care concerns: No Anes - Eval Final PreProcedure Day of Procedure 06/09/25 13:19 Patient weight: morbidly obese Lungs: normal air movement Airway: Mallampati scale class II Neurological: alert and oriented Last oral intake: >/= 8 hours ASA classification: III Emergent: no Anesthetic plan: proceed Anesthesia type and monitoring: general LMA and standard monitoring Results Review: All pre-operative results and documents have been reviewed as part of the pre- operative evaluation. PAL on CPAP, BMI 40, VSD repair as and doing well since. ECHO from 2014 w nml LVEF, no perfusion defects. Pt reports recent ECHO done and also reported as nml. GLP 1 last dose reported 05/23/25. Informed Consent: The patient's anesthetic plan and its attendant risks and benefits were discussed with the patient/family/POA. Questions were solicited and answers provided to the satisfaction of the patient/family/POA.
[2025-06-09] MEDS: ceFAZolin 2 GM in SODIUM CHLORIDE 0.9% IV 50 ML 100 ML IVPB (13:31)
[2025-06-09] MEDS: LIDOCAINE 2% GEL UROJET 10 ML PKG MUCOUS MEM (13:50)
--- NOTE | 2025-06-09 13:55 | S_PTH ---
PATIENT: Damaris Giron LOC: [facility] U#:[id number] AGE/SX: 50/F ROOM: RE06/09/[address]: Abdelrahman Morales MD : 1975 BED: DIS: 06/09/2025 SPEC #: [id number] RECD: 06/09/25 14:23 STATUS: MARTIN REQ #: [id number] REAGAN: 06/09/25 13:[address]: Abdelrahman Morales DEPT: [facility] Surgical RECD BY: Daysi Fitzgerald Tissues: A - Mesh Procedures: Gross Exam Level 1
--- NOTE | 2025-06-09 14:23 | W.PM.PROC2 ---
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 She has multiple comorbidities. She has exposure of her urethral sling. She is here today for excision. We will also plan on concomitant bulking agent to lessen her risk of recurrent incontinence. He understands risks of bleeding, infection, lack of efficacy, inability remove the mesh, recurrent mesh exposure, need for secondary procedures or repeat bulking agent, need for catheterization. She agrees to proceed Description of Procedure She was correctly identified. Informed consent obtained. She was from the operating room. She was given general anesthesia. She was placed in dorsal lithotomy position. She was prepped and draped sterile fashion. Time-out performed. I placed a retractor. I used an Allis to elevate the anterior vaginal wall. The small area of mesh exposure was identified. I placed a mosquito clamp behind it mesh exposure. I then divided the mesh exposure at the midline. I dissected out laterally to remove a section of mesh to sent for gross pathology. There was no other palpable mesh. I closed the defect with a [id number] 2-0 Vicryl suture. There was excellent hemostasis On cystoscopy she had no bladder abnormalities. No foreign bodies. Ureteral orifices were normal. Mild trabeculations. No mesh within the urethra. I chose a site 2 cm distal to the bladder neck in the area of the mid urethra. I injected the bulking agent circumferentially. I used both syringes. I performed several pillows completely coapted urethra. Her bladder was left partially full. Lidocaine jelly was instilled in her bladder. She was awakened transferred to PACU in stable condition Implants Urethral bulking agent Estimated Blood Loss 1 Packing No Complications No immediate complications Condition Stable Disposition PACU
== END 2025-06-09 17:32 | disposition home or self-care (01) ==
PROVIDERS: Visit Provider Urology
PROC: 3E0K8GC Introduction of Other Therapeutic Substance into Genitourinary Tract, Via Natural or Artificial Opening Endoscopic (ICD-10-PCS; CPT 57295; principal; 2025-06-09 14:00)
DX: T83.721A Exposure of implanted vaginal mesh into vagina, initial encounter (principal); F41.9 Anxiety disorder, unspecified; G47.33 Obstructive sleep apnea (adult) (pediatric); Y83.8 Other surgical procedures as the cause of abnormal reaction of the patient, or of later complication, without mention of misadventure at the time of the procedure; E66.01 Morbid (severe) obesity due to excess calories; Z68.41 Body mass index [BMI] 40.0-44.9, adult; Z79.82 Long term (current) use of aspirin; Z79.85 Long-term (current) use of injectable non-insulin antidiabetic drugs; Z99.89 Dependence on other enabling machines and devices; Z98.84 Bariatric surgery status
CPT/HCPCS: 57295; 51715; 88300; J0690; J1100; J2003; J2250; J2270; J2405; J2704; J3010; J7030; J7120; L8606